=== PATIENT | female | born 1950 | race African-American/Black ===

== ENCOUNTER 2017-10-31 07:36 | Day surgery (SDC) | payer OTHER ==
[2017-10-31] MEDS ORDERED: MIDAZOLAM HCL 2 MG/2 ML INJ ONE (07:37)
[2017-10-31] MEDS ORDERED: PROPOFOL 200 MG/20 ML VIAL IV ONE (07:37)
[2017-10-31] MEDS ORDERED: FENTANYL CITR 100 MCG/2 ML ONE (07:38)
[2017-10-31] MEDS ORDERED: ONDANSETRON 4 MG/2 ML VIAL ONE (07:38)
[2017-10-31] MEDS ORDERED: KETOROLAC 30 MG/ML INJ ONE (07:38)
[2017-10-31] MEDS ORDERED: LIDOCAINE 1% MPF 5 ML VIAL ONE (07:38)
--- OUTSIDE RECORDS SUMMARY | 2017-10-31 07:39 | XMS REPORT ---
:1950 Author Organization eClinicalWorks Care Team Providers Name Role Phone Milagros Abreu Provider Role Unavailable Allergies No Known Allergies Problems Problem Type Condition Code Onset Dates Condition Status Problem Gastro-esophageal reflux disease K21.9 Active without esophagitis Problem Hemorrhoids K64.9 Active Problem Esophagitis K20.9 Active Problem Microalbuminuria R80.9 Active Problem Seasonal allergic rhinitis due to J30.1 Active pollen Problem Obesity E66.9 Active Problem Body mass index (BMI) of 32.0-32.9 Z68.32 Active in adult Problem Other obesity due to excess E66.09 Active calories Problem Essential hypertension I10 Active Problem HTN (hypertension) I10 Active Problem Abnormal mammogram R92.8 Active Problem Vitamin D deficiency E55.9 Active Problem Gastritis K29.70 Active Problem Personal history of colonic polyps Z86.010 Active Problem Diaphragmatic hernia without K44.9 Active obstruction or gangrene Problem Burping R14.2 Active Problem Abdominal bloating R14.0 Active Problem Family history of colon cancer Z80.0 Active Problem Vitamin B 12 deficiency E53.8 Active Problem Family history of type 2 diabetes Z83.3 Active mellitus Problem Overactive bladder N32.81 Active Problem Gastroesophageal reflux disease K21.0 Active with esophagitis Problem Urinary incontinence R32 Active Medications No Known Medications Results No Known Results Summary Purpose eClinicalWorks Submission
--- OUTSIDE RECORDS SUMMARY | 2017-10-31 07:40 | XMS REPORT ---
:1950 Author Organization eClinicalWorks Care Team Providers Name Role Phone Milagros Abreu Provider Role Unavailable Allergies, Adverse Reactions, Alerts Substance Reaction Event Type Aspirin Adult Low Dose Gets Hive with whitew tablet Drug Allergy Problems Problem Type Condition Code Onset Dates Condition Status Assessment Body mass index (BMI) of 32.0-32.9 Z68.32 Active in adult Assessment Other obesity due to excess E66.09 Active calories Assessment Anemia, unspecified type D64.9 Active Problem Overactive bladder N32.81 Active Assessment Seasonal allergic rhinitis due to J30.1 Active pollen Problem Urinary incontinence R32 Active Assessment Essential hypertension I10 Active Problem Gastro-esophageal reflux disease K21.9 Active without esophagitis Problem Hemorrhoids K64.9 Active Problem Esophagitis K20.9 Active Problem Microalbuminuria R80.9 Active Problem Obesity E66.9 Active Problem Seasonal allergic rhinitis due to J30.1 Active pollen Problem Body mass index (BMI) of 32.0-32.9 Z68.32 Active in adult Problem Essential hypertension I10 Active Problem Other obesity due to excess E66.09 Active calories Problem HTN (hypertension) I10 Active Problem Abnormal [...] type 2 diabetes Z83.3 Active mellitus Problem Gastroesophageal reflux disease K21.0 Active with esophagitis Medications Medication Code Code Instructions Start End Status Dosage System Date Date Vitamin D3 [facility] 42596967813 2000 UNIT Active 1 capsule Orally Once a day Pantoprazole [facility] 85585983640 20 MG Orally Active 1 tablet Sodium Once a day Diclofenac [facility] 21339352725 50 MG Active TAKE 1 Sodium TABLET BY MOUTH TWICE A DAY Zyrtec Allergy [facility] 93476524805 10 MG Orally Active 1 tablet Once a day Contrave [facility] 56647430638 8-90 MG Orally Active 2 tablets Twice a day Vitamin B12 [facility] [place] 63201293666 2500 orally Active one under tongue once a day Protonix [facility] 97811579739 20 MG Orally Active 1 tablet Once a day Myrbetriq [facility] 36763703120 50 MG Orally Active 1 tablet Once a day Amlodipine [facility] 33816398646 10-40 MG Orally Active not Besy-Benazepril defined HCl Results No Known Results Summary Purpose eClinicalWorks Submission
[2017-10-31] MEDS ORDERED: Ringers Lactate 1,000 ML IV ONE (07:50)
[2017-10-31] MEDS ORDERED: NA CHLORIDE 0.9% 2,000 ML ONE (08:50)
[2017-10-31 14:57] VITALS: O2SAT 99
[2017-10-31 14:59] VITALS: BP 118/65; TEMP 98
--- NOTE | 2017-10-31 20:21 | OP ---
Date of Procedure: 10/31/2017 Surgeon: Tamara Roman MD Preoperative Diagnosis: Mixed incontinence and overactive bladder. Postoperative Diagnosis: Mixed incontinence and overactive bladder. Procedures Performed: Cystoscopy and urethroscopy. Anesthesia: MAC. Specimens: None. Complications: None. Drains: None. Findings: This tiny sessile polyp was noted in the trigone close to the internal meatus. Rest of th e bladder exam and urethral exam was normal. Description Of Procedure: After informed consent was verified, patient was taken back to OR, placed in a supine fashion on the operating table. After anesthesia was given, she was placed in a dorsal l ithotomy position using Lionel stirrups, prepped x3 with Betadine was done on urethra, periurethral ar eas. Then 17-Kyrgyz sheath, 30-degree lens and normal saline were used for distention medium. Cysto scopy was performed. There were ureteric orifices on both sides, single, normal jets of urine. The area above the trigone, dome, lateral lees were all closely examined. A small polyp was seen on the distal part of the trigone close to the internal meatus; tiny benign-appearing polyp. No evidence o f any diverticula, calculi, or other tumors. The scope was then pulled out through the bladder, was filled to 300 mL for the examination. Then urethroscopy was performed, 0 degree lens. The scope was pulled out as it was being retracted. The internal urethral meatus appeared to be slightly patent. No evidence of diverticula, ulcers, or tumors in the urethra. The bladder was then drained. The pa tient was recovered from anesthesia. Instrument, needle, and sponge counts were done and were correc t at the end of the case. She will follow up with me in the office. DK/LISA Voice ID: [id number] Report ID: [id number]
== END 2017-10-31 12:10 | disposition home or self-care (01) ==
LOC: OR 07:36
PROVIDERS: ATTEND Obstetrics & Gynecology
PROC: 0TJB8ZZ Inspection of Bladder, Via Natural or Artificial Opening Endoscopic (ICD-10-PCS; principal; 2017-10-31 08:30)
DX: N39.46 Mixed incontinence (principal); N32.81 Overactive bladder; I10 Essential (primary) hypertension; K21.9 Gastro-esophageal reflux disease without esophagitis; Z88.6 Allergy status to analgesic agent; Z86.718 Personal history of other venous thrombosis and embolism; Z80.0 Family history of malignant neoplasm of digestive organs; Z80.8 Family history of malignant neoplasm of other organs or systems; Z80.1 Family history of malignant neoplasm of trachea, bronchus and lung
CPT/HCPCS: J2250; J2405; J3010; J7030

== ENCOUNTER 2018-02-19 07:57 | Emergency (ER) | payer OTHER ==
--- OUTSIDE RECORDS SUMMARY | 2018-02-19 08:02 | XMS REPORT ---
:1950 Author Organization eClinicalWorks Care Team Providers Name Role Phone Abreu, Milagros Provider Role Unavailable Allergies No Known Allergies Problems Problem Type Condition Code Onset Dates Condition Status Assessment Other obesity due to excess E66.09 Active calories Assessment Allergic conjunctivitis of both H10.13 Active eyes Assessment Essential hypertension I10 Active Assessment Seasonal allergic rhinitis due to J30.1 Active pollen Problem HTN (hypertension) I10 Active Problem Seasonal allergic rhinitis due to J30.1 Active pollen Problem Gastritis K29.70 Active Problem Body mass index (BMI) of 32.0-32.9 Z68.32 Active in adult Problem Vitamin D deficiency E55.9 Active Problem Microalbuminuria R80.9 Active Problem Obesity E66.9 Active Problem Allergic conjunctivitis of both H10.13 Active eyes Problem Diaphragmatic hernia without K44.9 Active obstruction or gangrene Problem Gastroesophageal reflux disease K21.0 Active with esophagitis Problem Family history of type 2 diabetes Z83.3 Active mellitus Problem Anemia, unspecified type D64.9 Active Problem Other obesity due to excess E66.09 Active calories Problem Burping R14.2 Active Problem Essential hypertension I10 Active Problem Personal history of colonic polyps Z86.010 Active Problem Abdominal bloating R14.0 Active Problem Overactive bladder N32.81 Active Problem Urinary incontinence R32 Active Problem Family history of colon cancer Z80.0 Active Problem Vitamin B 12 deficiency E53.8 Active Problem Hemorrhoids K64.9 Active Problem Abnormal mammogram R92.8 Active Problem Gastro-esophageal reflux disease K21.9 Active without esophagitis Problem Esophagitis K20.9 Active Medications Medication Code Code Instructions Start End Status Dosage System Date Date Azelastine HCl [facility] 34610818598 0.05 % Active 1 drop into Ophthalmic Twice affected a day eye Amlodipine [facility] 69085864841 10-40 MG Orally Active 1 cap Besy-Benazepri once daily l HCl Contrave [facility] 45469205495 8-90 MG Orally Dec 15, Active 2 tablets Twice a day 2018 Zyrtec Allergy [facility] 64757164314 10 MG Orally Jun 30, Active 1 tablet Once a day 2017 Results No Known Results Summary Purpose eClinicalWorks Submission
--- OUTSIDE RECORDS SUMMARY | 2018-02-19 08:02 | XMS REPORT ---
[...] Status Dosage System Date Date Vitamin D3 [facility] 76690014191 2000 UNIT Active 1 capsule Orally Once a day Pantoprazole [facility] 67286834860 20 MG Orally Active 1 tablet Sodium Once a day Diclofenac [facility] 23849599309 50 MG Active TAKE 1 Sodium TABLET BY MOUTH TWICE A DAY Zyrtec Allergy [facility] 42735418766 10 MG Orally Active 1 tablet Once a day Contrave [facility] 48643717819 8-90 MG Orally Active 2 tablets Twice a day Vitamin B12 [facility] 04571487003 2500 orally Active one under tongue once a day Protonix [facility] 08004502712 20 MG Orally Active 1 tablet Once a day Myrbetriq [facility] 81155085777 50 MG Orally Active 1 tablet Once a day Amlodipine [facility] 74386546170 10-40 MG Orally Active not Besy-Benazepril defined HCl Results No Known Results Summary Purpose eClinicalWorks Submission
--- OUTSIDE RECORDS SUMMARY | 2018-02-19 08:02 | XMS REPORT ---
:1950 Author Organization eClinicalWorks Care Team Providers Name Role Phone Abreu, Milagros Provider Role Unavailable Allergies, Adverse Reactions, Alerts Substance Reaction Event Type Aspirin Adult Low Dose Gets Hive with whitew tablet Drug Allergy Problems Problem Type Condition Code Onset Dates Condition Status Assessment Body mass index (BMI) of 32.0-32.9 Z68.32 Active in adult Assessment Other obesity due to excess E66.09 Active calories Assessment Anemia, unspecified type D64.9 Active Assessment Allergic conjunctivitis of both H10.13 Active eyes Assessment Seasonal allergic rhinitis due to J30.1 Active pollen Assessment Essential hypertension I10 Active Problem HTN (hypertension) I10 Active Problem Seasonal [...] Start End Status Dosage System Date Date Contrave [facility] 01246147067 8-90 MG Orally Dec , Active 2 tablets Twice a day 2017 Vitamin D3 [facility] 30380969529 2000 UNIT Active 1 capsule Orally Once a day Pantoprazole [facility] 11245235794 20 MG Orally Active 1 tablet Sodium Once a day Azelastine HCl [facility] 02896687516 0.05 % Active 1 drop into Ophthalmic affected Twice a day eye Vitamin B12 [facility] 18302549173 2500 orally Active one under tongue once a day Myrbetriq [facility] 95353175563 50 MG Orally Active 1 tablet Once a day Diclofenac [facility] 05116816500 50 MG Active TAKE 1 Sodium TABLET BY MOUTH TWICE A DAY Zyrtec Allergy [facility] 56145115315 10 MG Orally Jun 30, Active 1 tablet Once a day 2017 Amlodipine [facility] 65484550012 10-40 MG Orally Active 1 cap Besy-Benazepril once daily HCl Protonix [facility] 47105097181 20 MG Orally Active 1 tablet Once a day Results No Known Results Summary Purpose eClinicalWorks Submission
--- NOTE | 2018-02-19 09:05 | RAD REPORT ---
EXAM DESCRIPTION: RAD - Hand Left 3 View - 02/19/2018 8:47 am CLINICAL HISTORY: PAIN COMPARISON: No comparisons FINDINGS: No fracture or dislocation is seen. Soft tissue swelling is seen along the dorsum of the h and at the level of the metacarpal heads.
--- NOTE | 2018-02-19 09:44 | EDPHYS ---
Physician Documentation [facility] Name: Montse Pappas Age: 67 yrs Sex: Female : 1950 Arrival Date: 02/19/2018 Time: 08:04 Bed 13 Private MD: Milagros Abreu ED Physician Khurram River HPI: 02/19 09:00 This 67 yrs old Black Female presents to ER via Ambulatory with complaints of Hand pm1 Injury. 16:55 The patient or guardian reports pain. The complaints affect the MCP of left middle pm1 finger. Context: The problem was sustained at work, resulted from lifting or pulling, a heavy object. Onset: The symptoms/episode began/occurred yesterday. Modifying factors: The symptoms are alleviated by OTC meds, the symptoms are aggravated by movement. Associated signs and symptoms: Pertinent negatives: cyanosis distally, decreased sensation distally, numbness distally, tingling distally. Severity of symptoms: in the emergency department the symptoms are actually worse. The patient has not experienced similar symptoms in the past. Patient was pulling a cart with her left hand and started experiencing pain to left MCP of middle finger. Historical: - Allergies: 08:06 Aspirin; sv - PMHx: 08:06 Hypertension; sv - PSHx: 08:06 Appendectomy; sv - Immunization history:: Adult Immunizations up to date. - Social history:: Smoking status: Patient/guardian denies using tobacco. - Ebola Screening: : No symptoms or risks identified at this time. ROS: 09:00 Constitutional: Negative for fever, chills, and weight loss, Eyes: Negative for injury, pm1 pain, redness, and discharge, ENT: Negative for injury, pain, and discharge, Neck: Negative for injury, pain, and swelling, Cardiovascular: Negative for chest pain, palpitations, and edema, Respiratory: Negative for shortness of breath, cough, wheezing, and pleuritic chest pain, Abdomen/GI: Negative for abdominal pain, nausea, vomiting, diarrhea, and constipation, Back: Negative for injury and pain. 09:00 Skin: Negative for injury, rash, and discoloration, Neuro: Negative for headache, weakness, numbness, tingling, and seizure. 09:00 MS/extremity: Positive for pain, of the MCP of left middle finger. Exam: 09:00 Constitutional: This is a well developed, well nourished patient who is awake, alert, pm1 and in no acute distress. Head/Face: Normocephalic, atraumatic. Chest/axilla: Normal chest wall appearance and motion. Nontender with no deformity. No lesions are appreciated. Cardiovascular: Regular rate and rhythm with a normal S1 and S2. No gallops, murmurs, or rubs. Normal PMI, no JVD. No pulse deficits. Respiratory: Lungs have equal breath sounds bilaterally, clear to auscultation and percussion. No rales, rhonchi or wheezes noted. No increased work of breathing, no retractions or nasal flaring. Abdomen/GI: Soft, non-tender, with normal bowel sounds. No distension or tympany. No guarding or rebound. No evidence of tenderness throughout. Back: No spinal tenderness. No costovertebral tenderness. Full range of motion. Skin: Warm, dry with normal turgor. Normal color with no rashes, no lesions, and no evidence of cellulitis. 09:00 Musculoskeletal/extremity: Extremities: grossly normal except: noted in the MCP of left middle finger: swelling, tenderness, There is no evidence of decreased ROM, tenderness, along flexor tendon of middle finger. 09:00 Neuro: Orientation: is normal, Motor: moves all fours. Vital Signs: 08:06 Pulse 62; Resp 18; Temp 98.4; Pulse Ox 99% ; Weight 79.83 kg; Height 5 ft. 5 in. sv (165.10 cm); Pain 10/10; 08:32 BP 123 / 74; Pulse 66; Resp 17; Pulse Ox 99% on R/A; tw2 09:56 BP 110 / 98; Pulse 68; Resp 17; Pulse Ox 100% on R/A; tw2 08:06 Body Mass Index 29.29 (79.83 kg, 165.10 cm) sv MDM: 08:12 Patient medically screened. pm1 09:42 Data reviewed: vital signs. Data interpreted: Pulse oximetry: on room air is 99 %. pm1 Interpretation: normal. Counseling: I had a detailed discussion with the patient and/or guardian regarding: the historical points, exam findings, and any diagnostic results supporting the discharge/admit diagnosis, radiology results. 08 08:14 Order name: Hand Left 3 View XRAY; Complete Time: 09:42 pm1 Administered Medications: No medications were administered Disposition: 14:40 Co-signature as Attending Physician, Khurram River MD I agree with the assessment and kdr plan of care. Disposition: 02/19/18 09:44 Discharged to Home. Impression: Sprain of unspecified part of wrist and hand. - Condition is Stable. - Discharge Instructions: Joint Pain. - Medication Reconciliation Form, Thank You Letter, Antibiotic Education, Prescription Opioid Use, Work release form form. - Follow up: Emergency Department; When: As needed; Reason: Worsening of condition. Follow up: Jerry Villa MD; When: 2 - 3 days; Reason: Recheck today's complaints, Continuance of care, Re-evaluation by your physician. - Problem is new. - Symptoms have improved. Signatures: Dispatcher [employer] Bobbi Jimenez, RN RN Khurram Padilla MD MD [facility] Ray Rasmussen, BRIM SETTER BRIM SETTER pm1 Kati Chopra RN RN tw2 Corrections: (The following items were deleted from the chart) 09:58 09:44 02/19/2018 09:44 Discharged to Home. Impression: Sprain of unspecified part of tw2 wrist and hand. Condition is Stable. Forms are Work release form, Medication Reconciliation Form, Thank You Letter, Antibiotic Education, Prescription Opioid Use. Follow up: Emergency Department; When: As needed; Reason: Worsening of condition. Follow up: Jerry Villa; When: 2 - 3 days; Reason: Recheck today's complaints, Continuance of care, Re-evaluation by your physician. Problem is new. Symptoms have improved. pm1
--- NOTE | 2018-02-19 09:44 | ER ---
Nurse's Notes [facility] Name: Montse Pappas Age: 67 yrs Sex: Female : 1950 Arrival Date: 02/19/2018 Time: 08:04 Bed 13 Private MD: Milagros Abreu Diagnosis: Sprain of unspecified part of wrist and hand Presentation: 02/19 08:05 Presenting complaint: Patient states: left hand injury yesterday. c/o left hand pain sv and swelling. Transition of care: patient was not received from another setting of care. Onset of symptoms was February 18, 2018. Care prior to arrival: None. 08:05 Method Of Arrival: Ambulatory sv 08:05 Acuity: DOREEN 4 sv 08:31 Risk Assessment: Do you want to hurt yourself or someone else? Patient reports no tw2 desire to harm self or others. Initial Sepsis Screen: Does the patient meet any 2 criteria? No. Patient's initial sepsis screen is negative. Does the patient have a suspected source of infection? No. Patient's initial sepsis screen is negative. Historical: - Allergies: 08:06 Aspirin; sv - PMHx: 08:06 Hypertension; sv - PSHx: 08:06 Appendectomy; sv - Immunization history:: Adult Immunizations up to date. - Social history:: Smoking status: Patient/guardian denies using tobacco. - Ebola Screening: : No symptoms or risks identified at this time. Screenin:31 Abuse screen: Denies threats or abuse. Nutritional screening: No deficits noted. tw2 Tuberculosis screening: No symptoms or risk factors identified. Fall Risk None identified. Assessment: 08:32 General: Appears in no apparent distress. well groomed, Behavior is calm, cooperative, tw2 appropriate for age. Pain: Complains of pain in left hand. Neuro: Level of Consciousness is awake, alert, obeys commands, Oriented to person, place, time, situation. Cardiovascular: Denies chest pain, shortness of breath, Patient's skin is warm and dry. Respiratory: Airway is patent Respiratory effort is even, unlabored, Respiratory pattern is regular, symmetrical. GI: No signs and/or symptoms were reported involving the gastrointestinal system. : No signs and/or symptoms were reported regarding the genitourinary system. EENT: No signs and/or symptoms were reported regarding the EENT system. Derm: No signs and/or symptoms reported regarding the dermatologic system. Musculoskeletal: Swelling present in left hand. 09:07 Reassessment: Patient appears in no apparent distress at this time. No changes from tw2 previously documented assessment. Patient and/or family updated on plan of care and expected duration. Pain level reassessed. Patient is alert, oriented x 3, equal unlabored respirations, skin warm/dry/pink. 09:56 Reassessment: Patient appears in no apparent distress at this time. No changes from tw2 previously documented assessment. Patient and/or family updated on plan of care and expected duration. Pain level reassessed. Patient is alert, oriented x 3, equal unlabored respirations, skin warm/dry/pink. Vital Signs: 08:06 Pulse 62; Resp 18; Temp 98.4; Pulse Ox 99% ; Weight 79.83 kg; Height 5 ft. 5 in. sv (165.10 cm); Pain 10/10; 08:32 BP 123 / 74; Pulse 66; Resp 17; Pulse Ox 99% on R/A; tw2 09:56 BP 110 / 98; Pulse 68; Resp 17; Pulse Ox 100% on R/A; tw2 08:06 Body Mass Index 29.29 (79.83 kg, 165.10 cm) sv ED Course: 08:04 Patient arrived in ED. mr 08:04 Milagros Abreu MD is Private Physician. mr 08:05 Triage completed. sv 08:06 Arm band placed on right wrist. sv 08:06 Bed in low position. Call light in reach. Pulse ox on. NIBP on. tw2 08:11 aKti Chopra RN is Primary Nurse. tw2 08:11 Ray Rasmussen NP is PHCP. pm1 08:11 Khurram River MD is Attending Physician. pm1 08:44 X-ray completed. Portable x-ray completed in exam room. Patient tolerated procedure la2 well. 08:45 Hand Left 3 View XRAY In Process Unspecified. EDMS 09:43 Jerry Villa MD is Referral Physician. pm1 09:55 Jignesh wrap to left hand with preformed wrist and thumb splint, pt tolerated well, CMS tw2 intact. 09:56 No provider procedures requiring assistance completed. Patient did not have IV access tw2 during this emergency room visit. Administered Medications: No medications were administered Outcome: 09:44 Discharge ordered by . pm1 09:57 Discharged to home ambulatory. tw2 09:57 Condition: stable 09:57 Discharge instructions given to patient, Instructed on discharge instructions, follow up and referral plans. Demonstrated understanding of instructions, follow-up care. 09:58 Patient left the ED. tw2 Signatures: Dispatcher [employer] EDBobbi Ferrara RN RN sv Rivera, Maria mr Marinas, Patrick DIGITAL X RAY SERVICE ENGINEER DIGITAL X RAY SERVICE ENGINEER pm1 Kati Chopra RN RN tw2 Kiarra Mcqueen
[2018-02-19 10:02] VITALS: TEMP 98.4
[2018-02-19 10:04] VITALS: BP 110/98; O2SAT 100
== END 2018-02-19 09:58 | disposition home or self-care (01) ==
LOC: ER 07:57
DX: S63.502A Unspecified sprain of left wrist, initial encounter (principal); X50.0XXA Overexertion from strenuous movement or load, initial encounter; Y93.89 Activity, other specified; Y92.59 Other trade areas as the place of occurrence of the external cause; I10 Essential (primary) hypertension
CPT/HCPCS: 99283

== ENCOUNTER 2020-05-09 01:18 | Inpatient (IN) | payer OTHER ==
--- OUTSIDE RECORDS SUMMARY | 2020-05-09 01:21 | XMS REPORT ---
:1950 Author Organization [employer] Care Team Providers Name Role Phone Abreu, Na Provider Role Unavailable Allergies, Adverse Reactions, Alerts Substance Reaction Event Type [place] (Diagnostic) Info Not Available Drug Allergy Aspirin Adult Low Dose Gets Hive with whitew tablet Drug All ergy Problems Problem Type Condition Code Onset Dates Condition Statu s Problem Gastritis K29.70 Active Problem HTN (hypertension) I10 Active Problem Obesity E66.9 Active Problem Vitamin D deficiency E55.9 Active Problem Microalbuminuria R80.9 Active Problem Essential hypertension I10 Activ e Problem Diaphragmatic hernia without K44.9 Active obstruction or gangrene Problem Family history of type 2 diabetes Z83.3 Active mellitus Problem Gastroesophageal reflux disease K21.0 Active with esophagitis Problem Family history of colon cancer Z80.0 Active Problem Localized swelling, mass and lump, R22.1 Active neck Problem Obesity (BMI 30-39.9) E66.9 Active Problem Vitamin B 12 deficiency E53.8 Acti ve Problem Mixed stress and urge urinary N39.46 Active incontinence Problem 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 knee Problem Varicose veins of both lower I83.813 Active extremities with pain Problem Need for 23-polyvalent pneumococcal Z23 Active polysaccharide vaccine Problem 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 Active Problem Gastro-esophageal reflux disease K21.9 Active without esophagitis Problem Urinary incontinence R32 Active Assessment Essential hypertension I10 Activ e Problem Allergic rhinitis due to pollen J30.1 Active Problem Overactive bladder N32.81 Active Assessment Need for 23-polyvalent pneumococcal Z23 Active polysaccharide vaccine Problem BMI 36.0-36.9,adult Z68.36 Active Assessment Body mass index (BMI) 35.0-35.9, Z68.35 Active adult Problem Abnormal mammogram of right breast R92.8 Active Assessment Morbid (severe) obesity due to E66.01 Active excess calories Problem Body mass index (BMI) 35.0-35.9, Z68.35 Active adult Problem Morbid (severe) obesity due to E66.01 Active excess calories Problem Seasonal allergic rhinitis due to J30.1 Active pollen Problem Abnormal mammogram R92.8 Active Problem Other obesity due to excess E66.09 Active calories Problem Abdominal bloating R14.0 Active Problem Esophagitis K20.9 Active Problem Body mass index (BMI) of 32.0-32.9 Z68.32 Active in adult Problem Hemorrhoids K64.9 Active Assessment Allergic rhinitis due to pollen J30.1 Active Problem Allergic conjunctivitis of both H10.13 Active eyes Assessment 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 Active Problem Anemia, unspecified type D64.9 Act nancy Problem Personal history of colonic polyps Z86.010 Active Problem Burping R14.2 Active Medications Medication Code Code Instructions Start End Status Dosage System Date Date Azelastine HCl [facility] 57114168268 0.05 % Active [facility] 1 DROP INTO AFFECTED EYE TWICE A DAY Amlodipine [facility] 16431490207 10-40 MG Orally Active 1 capsule Besy-Benazepril once daily HCl Magnesium Oxide [facility] 41163462292 400 MG Orally December 19, Feb 17, Activ e 1 tablet Once a day 2019 2020 as needed Zofran [facility] 28734102264 4 MG Orally Aug 08, Active 1 tablet every 12 hours 2020 as needed Vitamin B12 [facility] 64861682919 2500 orally Active one under tongue once a day Medrol [facility] 92460519444 4 MG Orally Feb 16, Feb 21, Active as 2019 2020 directed with food Meloxicam [facility] [address]-24 Active not defined Zyrtec Allergy [facility] 30047032861 10 MG Orally Active 1 tablet Once a day myrbetriq XR [facility] 82817659749 50mg po Qday Active 1 tablet Vitamin D3 [facility] 43425707094 2000 UNIT Active 1 capsu le Orally Once a day Meclizine HCl ND 20892272900 25 MG Orally Aug 08, Active 1 tablet every 6 hours 2020 as needed as needed Adipex-P [facility] 66562157062 37.5 MG Orally Active 1 ta blet Once a day Pantoprazole [facility] 97690483384 20 MG Orally Active 1 tablet Sodium Once a day Amlodipine [facility] 13999497596 10-40 MG Orally Active 1 cap Besy-Benazepril once daily HCl Flonase [facility] 23629021127 50 MCG/ACT Active 2 spray i n Nasally Once a each day nostril Results No Known Results Immunizations Vaccine Administration Date PNEUMAVAX Feb 17, 2020 Summary Purpose [employer] Submission
--- OUTSIDE RECORDS SUMMARY | 2020-05-09 01:21 | XMS REPORT ---
:1950 Author Organization [employer] Care Team Providers Name Role Phone Abreu, Na Provider Role Unavailable Allergies, Adverse Reactions, Alerts Substance Reaction Event Type [place] (Diagnostic) Info Not Available Drug Allergy Aspirin Adult Low Dose Gets Hive with whitew tablet Drug All ergy Problems Problem Type Condition Code Onset Dates Condition Statu s Problem Vitamin D deficiency E55.9 Active Problem Gastritis K29.70 Active Problem Microalbuminuria R80.9 Active Problem Obesity E66.9 Active Problem Essential hypertension I10 Activ e Problem Diaphragmatic hernia without K44.9 Active obstruction or gangrene Problem Family history of type 2 diabetes Z83.3 Active mellitus Problem Gastroesophageal reflux disease K21.0 Active with esophagitis Problem Family history of colon cancer Z80.0 Active Problem Vitamin B 12 deficiency E53.8 Acti ve Problem Obesity (BMI 30-39.9) E66.9 Active Problem Mixed stress and urge urinary N39.46 Active incontinence Problem Overactive bladder N32.81 Active Problem Varicose veins of both lower I83.813 Active extremities with pain Problem Abnormal mammogram of right breast R92.8 Active Problem 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 knee Problem 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 Active Problem Need for 23-polyvalent Z23 Activ e pneumococcal polysaccharide vaccine Problem Esophagitis K20.9 Active Problem Gastro-esophageal reflux disease K21.9 Active without esophagitis Assessment Essential hypertension I10 Activ e Problem BMI 34.0-34.9,adult Z68.34 Active Problem Urinary incontinence R32 Active Assessment Allergic rhinitis due to pollen J30.1 Active Problem Body mass index (BMI) 35.0-35.9, Z68.35 Active adult Assessment Morbid (severe) obesity due to E66.01 Active excess calories Problem BMI 36.0-36.9,adult Z68.36 Active Assessment BMI 34.0-34.9,adult Z68.34 Active Problem Allergic rhinitis due to pollen J30.1 Active Problem Morbid (severe) obesity due to E66.01 Active excess calories Problem Other obesity due to excess E66.09 Active calories Problem Abdominal bloating R14.0 Active Problem HTN (hypertension) I10 Active Problem Personal history of colonic polyps Z86.010 Active Problem Body mass index (BMI) of 32.0-32.9 Z68.32 Active in adult Problem Hemorrhoids K64.9 Active Problem Seasonal allergic rhinitis due to J30.1 Active pollen Problem Abnormal mammogram R92.8 Active Assessment Strain of right shoulder, initial S46.911A Active encounter Problem Anemia, unspecified type D64.9 Act nancy Problem Localized swelling, mass and lump, R22.1 Active neck Problem Burping R14.2 Active Problem Allergic conjunctivitis of both H10.13 Active eyes Medications Medication Code Code Instructions Start End Status Dosage System Date Date Flonase [facility] 85806194123 50 MCG/ACT Active 2 spray i n Nasally Once a each day nostril myrbetriq XR [facility] 69107941831 50mg po Qday Active 1 tablet Zofran [facility] 28149673084 4 MG Orally Aug 08, Active 1 tablet every 12 hours 2020 as needed Meclizine HCl [facility] 56963484690 25 MG Orally Aug 08, Active 1 tablet every 6 hours 2020 as needed as needed Diclofenac Sodium [facility] 20846646529 50 MG Orally Sept Mar Activ e 1 tablet Twice a day , with food prn pain 2019 2019 or milk Azelastine HCl [facility] 63616141463 0.05 % Active [facility] 1 DROP INTO AFFECTED EYE TWICE A DAY Meloxicam [facility] [address]-63 Active not defined Zyrtec Allergy [facility] 80021282573 10 MG Orally Active 1 tablet Once a day Pantoprazole [facility] 06681130392 20 MG Orally Active 1 tablet Sodium Once a day Vitamin B12 [facility] 97363855406 2500 orally Active one under tongue once a day Vitamin D3 [facility] 30914058653 2000 UNIT Active 1 capsu le Orally Once a day Amlodipine [facility] 80776427906 10-40 MG Active 1 capsul e Besy-Benazepril Orally once HCl daily Amlodipine [facility] 47601495750 10-40 MG Active 1 cap Besy-Benazepril Orally once HCl daily Cyclobenzaprine [facility] 33638085942 10 MG Orally Sept Oct Active 1 tablet HCl once a day at 11, 11, as needed bedtime 2019 2019 Adipex-P [facility] 59016164343 37.5 MG Orally Active 1 ta blet Once a day Results No Known Results Summary Purpose [employer] Submission
--- OUTSIDE RECORDS SUMMARY | 2020-05-09 01:21 | XMS REPORT | Continuity of Care Document ---
:1950 Author Organization [facility] t Address [address] [place] [address] Care Team Providers Name Role Phone Unavailable Unavailable Unavailable Problems Condition Condition Condition Status Onset Resolution Last Treating Co mments Source Name Details Category Date Date Treatment Clinician Date Gastro-eso Gastro-eso Problem Active [facility] phageal phageal [facility] - reflux reflux Memoria disease disease l without without Outpati esophagiti esophagiti en t s s Clinics Hemorrhoid Hemorrhoid Problem Active [facility] Esophagiti Esophagiti Problem Active [facility] l [facility] Microalbum Microalbum Problem Active [facility] inuria inuria [facility] Seasonal [facility]al Problem [facility] allergic [facility] - rhinitis rhinitis Memori a due to due to l pollen pollen Outpati ent Clinics Obesity Obesity Problem Active [facility] (BMI (BMI [facility] - 30-39.9) 30-39.9) Memori a l Outpati ent Clinics Body mass Body mass Problem Active [facility] index index [facility] - (BMI) of (BMI) of Memori a 32.0-32.9 32.0-32.9 l in adult in adult Outpat i ent Clinics Other Other Problem Active [facility] obesity obesity [facility] - due to due to Memoria excess excess l calories calories Outpat i ent Clinics HTN HTN Problem Active [facility] (hypertens (hypertens Alee kes - ion) ion) Memoria l Outpati ent Clinics Abnormal Abnormal Problem Active [facility] mammogram mammogram [facility] - [facility] Clin[facility] Vitamin D Vitamin D Problem Active [facility] deficiency deficiency Alee kes - Memoria l Outpati ent Clinics Gastritis Gastritis Problem Active [facility] Personal Personal Problem Active [facility] history of history of Alee kes - colonic colonic Memoria polyps polyps l [facility]ics Diaphragma Diaphragma Problem Active [facility] tic hernia tic hernia Alee kes - without without Memoria obstructio obstructio l n or n or Outpati gangrene gangrene ent Clinics Burping Burping Problem Active [facility] Abdominal Abdominal Problem Active [facility] bloating bloating [facility] - [facility] l [facility] Family Family Problem Active [facility] history of history of [facility] Vitamin B Vitamin B Problem Active [facility] 12 12 [facility] - deficiency deficiency Me moria l [facility] Family Family Problem Active [facility] history of history of Alee kes - type 2 type [address] [facility] diabetes diabetes l mellitus mellitus Outpat i ent Clinics Overactive Overactive Problem Active [facility] bladder bladder [facility] Gastroesop Gastroesop Problem Active [facility] hageal hageal [facility] - reflux reflux Memoria disease disease l with with Outpati esophagiti esophagiti en t s s Clinics Urinary Urinary Problem Active [facility] incontinen incontinen Alee kes - ce ce [facility] Anemia, Anemia, Problem Active [facility] unspecifie unspecifie Alee kes - d type d [facility] Allergic Allergic Problem Active [facility] conjunctiv conjunctiv Alee kes - itis [facility] both eyes both eyes l [facility] Localized Localized Problem Active [facility] swelling, swelling, Luke s - mass and mass and Memori a lump, neck lump, neck l [facility] Mixed Mixed Problem Active [facility] stress and stress and Alee kes - urge urge Memoria urinary urinary l incontinen incontinen Ou tpati ce ce ent Clinics Varicose Varicose Problem Active [facility] veins of veins of [facility] - both lower both lower Me moria extremitie extremitie l s with s with [facility] pain pain ent Clinics Primary Primary Problem Active [facility] osteoarthr osteoarthr Alee kes - itis of itis of Memoria right knee right knee l [facility] BMI BMI Problem Active [facility] 36.0-36.9, 36.0-36.9, Alee kes - adult adult [facility] Body mass Body mass Problem Active [facility] index index [facility] - (BMI) (BMI) Memoria 35.0-35.9, 35.0-35.9, l adult adult [facility] Clinics Morbid Morbid Problem Active [facility] (severe) (severe) Lukes - obesity obesity Memoria due to due to l excess excess Outpati calories calories ent Clinics Need for Need for Problem Active [facility] 23-polyval 23-polyval [facility] - ent ent Memoria pneumococc pneumococc l al al Outpati polysaccha polysaccha en t ride ride Clinics vaccine vaccine Tinnitus Tinnitus Problem Active [facility] of right of right [facility] - ear ear Memoria l [facility] Clin[facility] BMI BMI Diagnosis Active [facility] 34.0-34.9, 34.0-34.9, Alee kes - adult adult [facility] Strain of Strain of Diagnosis Active [facility] right right [facility] - shoulder, shoulder, Maxi jennifer initial initial l encounter encounter Outp at ent Clinics Allergies, Adverse Reactions, Alerts Allergy Allergy Status Severity Reaction(s) Onset Inactive Treating Comm ents Source Name Type Date Date Clinician Aspirin Adverse Active [facility] Adult Reaction with whitew Nabeel es - Low Dose tablet Memoria [facility] Clinics Strawber Adverse Active Info Not [facility] ry Reaction Available [facility] - (Diagnos Memoria tic) [facility] Medications Ordered Filled Start Stop Current Ordering Indication Dosage Frequency Signature Comments Components Source Medication Medication Date Date Medication? Clinician (SIG) Name Name Cyclobenzap Cyclobenzap 2020- Yes Na Abreu [address] [facility] rine HCl rine HCl - 10-11 as needed L ukes - 00:00: 00:00 Memoria 00 :00 [facility] Diclofenac Diclofenac 2020- Yes Na Abreu [address] [facility] Sodium Sodium 03-27- with food [facility] - 00:00: 00:00 or milk Memoria 00 :00 [facility] Adipex-P Adipex-P 2020- No Na Abreu [address] [facility] 7- 08-05 [facility] - 00:00: 00:00 Memoria 00 :00 [facility] Meclizine Meclizine Yes Na Abreu [address] [facility] HCl HCl 1-23 as needed [facility] - 00:00: Memoria 00 [facility] Zofran Zofran Yes Na Abreu [address] 1-23 [facility] - 00:00: Memoria 00 l [facility]ics Flonase Flonase Yes Na Abreu [address] [facility] each [facility] - nostril Memoria l [facility] Vitamin B12 Vitamin B12 Yes Na Abreu one [facility]ics Azelastine Azelastine Yes Na Abreu INSTILL [address] [facility] HCl HCl DROP INTO Lukes - AFFECTED Memoria EYE TWICE l A DAY [facility] Vitamin D3 Vitamin D3 Yes Na Abreu [address] [facility] Pantoprazol Pantoprazol Yes Na Abreu [address] [facility] e Sodium e Sodium [facility] - Memoria l [facility] Amlodipine Amlodipine Yes Na Abreu [address] [facility] [address] Besy-Benaze Besy-Benaze L ukes - pril HCl pril HCl Memoria l [facility] Clinics Meloxicam Meloxicam Yes Na Abreu not [facility] defined [facility] - [facility] l [facility] Zyrtec Zyrtec Yes Na Abreu [address] [facility] Allergy Allergy [facility] - Memoria l [facility]ics myrbetriq myrbetriq Yes Na Abreu [address] [facility] XR XR [facility] - Memoria l [facility] Amlodipine Amlodipine Yes Na Abreu [address] [facility] Besy-Benaze Besy-Benaze L ukes - pril HCl pril HCl Memoria l [facility] Clinics Immunizations Ordered Filled Immunization Date Status Comments [facility] e Immunization Name Name PNEUMAVAX 23 PNEUMAVAX 23 2020-02-[address] Nabeel es - 00:00:00 [facility] Out[facility] TDAP- Boostrix TDAP- Boostrix 2018-09-[address] [facility] - 00:[facility]00 [facility] Procedures This patient has no known procedures. Encounters Start End Encounter Admission Attending Care Care Encounter Source Date/Time Date/Time Type Type Clinicians Facility Department ID 2020-03-27 2020-03-27 Outpatient [facility] [id number] [facility] 08[facility]00:00 08:00:00 [employer] [place] [facility] Medicine Medicine [facility] 2020-02-17 2020-02-17 Outpatient [facility] [id number] [facility] [address] 08:00:00 08:00:00 [place] [employer] [facility] Medicine Outpati ent Clinics 2020-01-20 2020-01-20 [facility] [id number] 08:20:00 08:20:00 [place] [employer] [address] [facility] l Medicine Outpati ent Clinics 2019-12-20 2019-12-20 [facility] [id number] 13:20:00 13:20:00 [place] [employer] [facility] Medicine Outpati ent Clinics 2019-12-16 2019-12-16 [facility] [id number] 22:27:00 22:27:00 [email or web address] [facility] Medicine Outpati ent Clinics 2019-11-25 2019-11-25 [facility] [id number] [address] 10:15:00 10:15:00 t Bone Bone and [facility] - and Joint [facility] ent Clinics 2019-11-04 2019-11-04 [facility] [id number] [address] 10:06:00 10:06:00 t [facility] Bone and [facility] - and Joint [facility] ent Clinics 2019-08-08 2019-08-08 [facility] [id number] [address] 15:40:00 15:40:00 t [employer] [facility] Medicine Outpati ent Clinics 2019-07-19 2019-07-19 [facility] [id number] 10:00:00 10:00:00 [place] [employer] [facility] Medicine Outpati ent Clinics 2019-07-08 2019-07-08 [facility] [id number] [facility] 13:34:00 13:34:00 t [place] [employer] [facility] Medicine Outpati ent Clinics 2019-06-21 2019-06-21 [facility] [id number] 11:00:00 11:00:00 [place] [employer] [facility] Outpati ent Clinics 2019-06-10 2019-06-10 [facility] [id number] [address] 09:30:00 09:30:00 t [facility] and [facility] - and Joint [facility] ent Clinics 2019-06-07 2019-06-07 [facility] [id number] 08:40:00 08:40:00 t [place] [employer] [facility] Outpati ent Clinics 2019-06-07 2019-06-07 [facility] [id number] [address] 08:23:00 08:23:00 [email or web address] [facility] Outpati ent Clinics 2019-05-19 2019-05-19 [facility] [id number] 00:54:00 00:54:00 t [employer] [facility] Outpati ent Clinics 2019-05-13 2019-05-13 [facility] [id number] 09:30:00 09:30:00 t Bone Bone and [facility] - and Joint [facility] ent Clinics 2019-05-07 2019-05-07 [facility] [id number] 15:33:00 15:33:00 t [employer] [facility] 2019-04-18 2019-04-18 [facility] [id number] 08:19:00 08:19:00 t [place] [employer] [facility] Outpati ent Clinics 2019-03-29 2019-03-29 [facility] [id number] [facility] 08:20:00 08:20:00 t [email or web address] [facility] Outpati ent Clinics 2019-03-24 2019-03-24 [facility] [id number] 12:24:00 12:24:00 [email or web address] [facility] Outpati ent Clinics 2019-03-19 2019-03-19 [facility] [id number] 16:28:00 16:28:[address] Luke s - Drive [facility] Medicine l Medicine Outpati ent Clinics 2018-12-25 2018-12-25 [facility] [id number] 13:14:00 13:14:[address] Luke s - [address] [facility] l Medicine Outpati ent Clinics 2018-12-21 2018-12-21 [facility] [id number] [facility] 08:20:00 08:20:[address] Luke s - Drive [facility] Medicine l Medicine Outpati ent Clinics 2018-11-02 2018-11-02 [facility] [id number] [facility] 15:49:00 15:49:[address] Luke s - [facility] l Medicine Outpati ent Clinics 2018-10-22 2018-10-22 [facility] [id number] 15:20:00 15:20:[address] Luke s - Drive [facility] Medicine Outpati ent Clinics 2018-09-21 2018-09-21 [facility] [id number] [facility] 09:00:00 09:00:[address] Luke s - Drive [facility] Medicine Outpati ent Clinics 2018-06-21 2018-06-21 [facility] [id number] [facility] 09:00:00 09:00:[address] Luke s - [facility] l Medicine Outpati ent Clinics 2018-04-11 2018-04-11 [facility] [id number] 16:35:00 16:35:[address] Luke s - Drive [facility] Medicine l Medicine Outpati ent Clinics 2018-04-11 2018-04-11 [facility] [id number] [facility] 08:24:00 08:24:[address] Luke s - [facility] l Medicine Outpati ent Clinics 2018-03-23 2018-03-23 [facility] [id number] 09:15:00 09:15:[address] Luke s - [facility] l Medicine Outpati ent Clinics 2018-01-08 2018-01-08 [facility] [id number] 15:59:00 15:59:00 t [place] [employer] [facility] Outpati ent Clinics 2018-01-01 2018-01-01 [facility] [id number] [facility] 08:45:00 08:45:00 t [employer] [facility] Outpati ent Clinics 2017-10-06 2017-10-06 [facility] [id number] [facility] 09:54:00 09:54:00 t [employer] [facility] Medicine Outpati ent Clinics 2017-10-02 2017-10-02 [facility] [id number] [facility] 08:15:00 08:15:00 t [employer] [facility] Outpati ent Clinics Results This patient has no known results.
[2020-05-09] MEDS ORDERED: MORPHINE 2 MG/ML SYR ONE ×2 (02:02→03:13)
[2020-05-09] MEDS ORDERED: ONDANSETRON 4 MG/2 ML VIAL ONE (02:02)
[2020-05-09] MEDS ORDERED: NA CHLORIDE 0.9% 2,000 ML ONE (02:02)
[2020-05-09 02:21] LABS: Absolute Lymphocytes (CBC) 0.3 K/uL (0.7-4.9); Basophils % 0.3 % (0-1.3); Hematocrit 40.7 % (36.0-45.0); Lymphocytes % 2.3 % (15.3-44.8); MPV 9.7 fL (7.6-11.3); RBC Red Blood Cell Count 4.35 M/uL (3.86-4.86)
[2020-05-09] MEDS ORDERED: FAMOTIDINE 20 MG/2 ML VIAL IV ONE (02:28)
[2020-05-09] MEDS ORDERED: METRONIDAZOLE 500mg IVPB 500 MG/100 ML BAG IV ONE (02:29)
[2020-05-09] MEDS ORDERED: CIPROFLOXACIN 400mg IV 400 MG/200 ML BAG IV ONE (02:29)
[2020-05-09 02:45] LABS: Protime INR 1.13
[2020-05-09 03:02] LABS: Blood Morphology Comment NOT SEEN (NOT SEEN); Platelet Estimate ADEQ
[2020-05-09 03:09] LABS: ALT/SGPT 28 U/L (12-78); AST/SGOT 17 U/L (15-37); Albumin 3.7 g/dL (3.4-5.0); Alkaline Phosphatase 92 U/L (45-117); BUN Blood Urea Nitrogen 12 mg/dL (7-18); Bicarbonate 27 mmol/L (21-32); Bilirubin Direct 0.1 mg/dL (0-0.2); Bilirubin Total 0.3 mg/dL (0.2-1.0); Glucose Level 139 mg/dL (74-106); Lipase 34 U/L (73-393); Potassium 3.8 mmol/L (3.5-5.1); Protein, Total 8.2 g/dL (6.4-8.2); Sodium Level 139 mmol/L (136-145); Troponin (Emerg Dept Use Only) < 0.02 ng/mL (0.0-0.045)
--- NOTE | 2020-05-09 03:38 | EDPHYS ---
Physician Documentation [facility] Name: Montse Pappas Age: 70 yrs Sex: Female : 1950 Arrival Date: 05/09/2020 Time: 01:21 Bed 7 Private MD: ED Physician Mane Putnam HPI: 05/09 02:06 This 70 yrs old Black Female presents to ER via Ambulatory with complaints of Abdominal charleen Pain, Vomiting, Bloody Stools. 02:06 The patient presents to the emergency department with diarrhea, that is intermittent, charleen abdominal pain. Onset: The symptoms/episode began/occurred just prior to arrival, this morning, yesterday. Possible causes: unknown. The symptoms are aggravated by nothing. The symptoms are alleviated by nothing. Associated signs and symptoms: The patient has no apparent associated signs or symptoms. Severity of symptoms: At their worst the symptoms were. The patient has not experienced similar symptoms in the past. Historical: - Allergies: 01:42 Aspirin; mg2 01:42 amlodipine; mg2 - Home Meds: 01:42 aspirin (pink) [Active]; mg2 - PMHx: 01:42 Hypertension; mg2 - PSHx: 01:42 Appendectomy; mg2 - Immunization history:: Flu vaccine is up to date. - Social history:: Smoking status: Patient denies any tobacco usage or history of. Patient/guardian denies using alcohol, street drugs, IV drugs. - Family history:: not pertinent. ROS: 02:06 Constitutional: Negative for fever, chills, and weight loss, Eyes: Negative for injury, charleen pain, redness, and discharge, ENT: Negative for injury, pain, and discharge, Neck: Negative for injury, pain, and swelling, Cardiovascular: Negative for chest pain, palpitations, and edema, Respiratory: Negative for shortness of breath, cough, wheezing, and pleuritic chest pain, Back: Negative for injury and pain, : Negative for injury, bleeding, discharge, and swelling, MS/Extremity: Negative for injury and deformity, Skin: Negative for injury, rash, and discoloration, Neuro: Negative for headache, weakness, numbness, tingling, and seizure, Psych: Negative for depression, anxiety, suicide ideation, homicidal ideation, and hallucinations, Allergy/Immunology: Negative for hives, rash, and allergies, Endocrine: Negative for neck swelling, polydipsia, polyuria, polyphagia, and marked weight changes, Hematologic/Lymphatic: Negative for swollen nodes, abnormal bleeding, and unusual bruising. 02:06 Abdomen/GI: Positive for abdominal pain, abdominal cramps, of the right lower quadrant and left lower quadrant. Exam: 02:06 Constitutional: This is a well developed, well nourished patient who is awake, alert, charleen and in no acute distress. Head/Face: Normocephalic, atraumatic. Eyes: Pupils equal round and reactive to light, extra-ocular motions intact. Lids and lashes normal. Conjunctiva and sclera are non-icteric and not injected. Cornea within normal limits. Periorbital areas with no swelling, redness, or edema. ENT: Nares patent. No nasal discharge, no septal abnormalities noted. Tympanic membranes are normal and external auditory canals are clear. Oropharynx with no redness, swelling, or masses, exudates, or evidence of obstruction, uvula midline. Mucous membranes moist. Neck: Trachea midline, no thyromegaly or masses palpated, and no cervical lymphadenopathy. Supple, full range of motion without nuchal rigidity, or vertebral point tenderness. No Meningismus. Chest/axilla: Normal chest wall appearance and motion. Nontender with no deformity. No lesions are appreciated. Cardiovascular: Regular rate and rhythm with a normal S1 and S2. No gallops, murmurs, or rubs. Normal PMI, no JVD. No pulse deficits. Respiratory: Lungs have equal breath sounds bilaterally, clear to auscultation and percussion. No rales, rhonchi or wheezes noted. No increased work of breathing, no retractions or nasal flaring. Back: No spinal tenderness. No costovertebral tenderness. Full range of motion. Female : Normal external genitalia. Skin: Warm, dry with normal turgor. Normal color with no rashes, no lesions, and no evidence of cellulitis. MS/ Extremity: Pulses equal, no cyanosis. Neurovascular intact. Full, normal range of motion. Neuro: Awake and alert, GCS 15, oriented to person, place, time, and situation. Cranial nerves II-XII grossly intact. Motor strength 5/5 in all extremities. Sensory grossly intact. Cerebellar exam normal. Normal gait. Psych: Awake, alert, with orientation to person, place and time. Behavior, mood, and affect are within normal limits. 02:06 Abdomen/GI: Inspection: distension, obese Bowel sounds: normal, active, Palpation: mild abdominal tenderness, in the right lower quadrant and left lower quadrant, Liver: no appreciated palpable abnormalities, Hernia: not appreciated. 02:10 ECG was reviewed by the Attending Physician. [facility] Vital Signs: 01:39 BP 130 / 84; Pulse 101; Resp 18; Temp 98.1; Pulse Ox 98% on R/A; Weight 86.18 kg; mg2 Height 5 ft. 5 in. (165.10 cm); Pain 10/10; 02:45 BP 144 / 67; Pulse 95; Resp 18; Pulse Ox 99% on R/A; lp1 04:32 BP 144 / 81; Pulse 85; Resp 18; Pulse Ox 100% on R/A; Pain 8/10; lp1 01:39 Body Mass Index 31.62 (86.18 kg, 165.10 cm) mg2 MDM: 01:29 Patient medically screened. [facility] 02:08 Differential diagnosis: Nonspecific abd pain, pancreatitis, diverticulitis, viral charleen gastroenteritis, gastroenteritis. Data reviewed: vital signs, nurses notes, lab test result(s), EKG, radiologic studies, CT scan. Data interpreted: conveyor monitor: rate is 101 beats/min, rhythm is regular, Pulse oximetry: on room air is 98 %. Test interpretation: by ED physician or midlevel provider: ECG, plain radiologic studies. Counseling: I had a detailed discussion with the patient and/or guardian regarding: the historical points, exam findings, and any diagnostic results supporting the discharge/admit diagnosis, lab results, radiology results. 05/09 01:47 Order name: Basic Metabolic Panel; Complete Time: 03:35 mg2 05/09 01:47 Order name: CBC with Diff; Complete Time: 03:35 mg2 05/09 01:47 Order name: Hepatic Function; Complete Time: 03:35 mg2 05/09 01:47 Order name: Lipase; Complete Time: 03:35 mg2 05/09 01:47 Order name: Troponin (emerg Dept Use Only); Complete Time: 03:35 mg2 05/09 02:09 Order name: PT-INR; Complete Time: 02:59 charleen 05/09 02:10 Order name: Type And Screen; Complete Time: 03:35 charleen 05/09 02:26 Order name: Manual Differential; Complete Time: 03:35 EDMT 05/09 03:29 Order name: ABO/RH no charge; Complete Time: 03:35 EDMT 05/09 03:38 Order name: Lactate; Complete Time: 05:47 [facility] 05/09 03:42 Order name: C.difficile GDH Ag EDMT 05/09 03:42 Order name: C.DIFF TOX B QUAL PCR [facility] 05/09 03:48 Order name: Stool Culture [facility] 05/09 03:48 Order name: Fecal Leukocyte Stain [facility] 05/09 01:47 Order name: IV Saline Lock; Complete Time: 02:37 [facility] [place] 05/09 01:47 Order name: Labs collected and sent; Complete Time: 02:13 [facility] [place] 05/09 01:47 Order name: CT Abd/Pelvis - IV Contrast Only [facility] [place] 05/09 02:09 Order name: Chest Single View XRAY [facility] 05/09 03:59 Order name: COVID-19 lp 05/09 04:29 Order name: Blood Culture [facility] 05/09 04:36 Order name: CBC with Automated Diff; Complete Time: 05:47 EDMT 05/09 01:47 Order name: EKG - Nurse/Tech; Complete Time: 02:20 mg2 EC:10 Rate is 93 beats/min. Rhythm is regular. QRS [place] is Normal. [place] interval is normal. QRS charleen interval is normal. QT interval is normal. No Q waves. T waves are Normal. No ST changes noted. Clinical impression: Normal ECG and No evidence of ischemia. Interpreted by me. Reviewed by me. Administered Medications: 02:37 Drug: Zofran (Ondansetron) 4 mg Route: IVP; Site: right wrist; mg2 03:05 Follow up: Response: No adverse reaction lp1 02:37 Drug: morphine 2 mg Route: IVP; Site: right wrist; mg2 02:38 Drug: NS 0.9% 1000 ml Route: IV; Rate: 1000 ml; Site: right wrist; mg2 04:25 Follow up: IV Status: Completed infusion; IV Intake: 1000ml lp1 02:55 Drug: Pepcid 20 mg Route: IVP; Site: right wrist; lp1 03:58 Follow up: Response: No adverse reaction lp1 03:05 Drug: morphine 2 mg Route: IVP; Site: right wrist; lp1 03:05 Follow up: Response: No change in condition lp1 03:05 Drug: Cipro 400 mg Volume: 200 ml; Route: IVPB; Infused Over: 60 mins; Site: right lp1 wrist; 04:25 Follow up: IV Status: Completed infusion; IV Intake: 200ml lp1 03:40 Drug: Rocephin 1 grams Route: IV; Rate: per protocol; Site: right wrist; lp1 04:25 Follow up: IV Status: Completed infusion; IV Intake: 10ml lp1 03:49 Drug: Flagyl 500 mg Volume: 100 ml; Route: IVPB; Rate: 200 ml/hr; Infused Over: 30 lp1 mins; Site: right wrist; 04:32 Follow up: IV Status: Completed infusion; IV Intake: 100ml lp1 04:26 Drug: NS 0.9% 1000 ml Route: IV; Rate: 125 ml/hr; Site: right wrist; lp1 04:26 Follow up: IV Status: Infusion continued upon admission lp1 04:40 Drug: morphine 4 mg {Note: VO per Dr. Putnam.} Route: IVP; Site: right wrist; lp1 04:49 Follow up: Response: No adverse reaction lp1 Disposition: 05/09/20 03:37 Hospitalization ordered by Prince Adelina for Inpatient Admission. Preliminary diagnosis are Abdominal tenderness, Left sided colitis with rectal bleeding - transverse to sigmoid, Elevated white blood cell count, Bandemia. - Bed requested for Telemetry/MedSurg (Inpatient). - Status is Inpatient Admission. lp1 - Condition is Fair. - Problem is new. - Symptoms have improved. Signatures: Dispatcher [employer] EDMT Debbi Winchester RN RN mw Anderson, Corey, MD MD cha Pena, Laura RN RN lp1 Martin Mantilla RN RN mg2 Corrections: (The following items were deleted from the chart) 03:41 03:37 Hospitalization Ordered by Prince Adelina DISLA for Inpatient Admission. Preliminary charleen diagnosis is Abdominal tenderness; Left sided colitis with rectal bleeding - transverse to sigmoid; Elevated white blood cell count. Bed requested for Telemetry/MedSurg (Inpatient). Status is Inpatient Admission. Condition is Fair. Problem is new. Symptoms have improved. charleen 03:43 03:41 05/09/2020 03:37 Hospitalization Ordered by Prince Adelina DISLA for Inpatient mw Admission. Preliminary diagnosis is Abdominal tenderness; Left sided colitis with rectal bleeding - transverse to sigmoid; Elevated white blood cell count; Bandemia. Bed requested for Telemetry/MedSurg (Inpatient). Status is Inpatient Admission. Condition is Fair. Problem is new. Symptoms have improved. charleen 04:50 03:43 05/09/2020 03:37 Hospitalization Ordered by Prince Adelina DISLA for Inpatient lp1 Admission. Preliminary diagnosis is Abdominal tenderness; Left sided colitis with rectal bleeding - transverse to sigmoid; Elevated white blood cell count; Bandemia. Bed requested for Telemetry/MedSurg (Inpatient). Status is Inpatient Admission. Condition is Fair. Problem is new. Symptoms have improved. mw
--- NOTE | 2020-05-09 03:38 | ER ---
Nurse's Notes [facility] Name: Montse Pappas Age: 70 yrs Sex: Female : 1950 Arrival Date: 05/09/2020 Time: 01:21 Bed 7 Private MD: Diagnosis: Abdominal tenderness;Left sided colitis with rectal bleeding-transverse to sigmoid;Elevated white blood cell count;Bandemia Presentation: 05/09 01:39 Chief complaint: Patient states: i had popeyes meal \T\ 1600H yesterday when I started to mg2 have vomiting, lower abdominal pain, loose stool and rectal bleeding. Coronavirus screen: Client denies travel out of the [place] in the last 14 days. At this time, the client does not indicate any symptoms associated with coronavirus-19. Ebola Screen: No symptoms or risks identified at this time. Initial Sepsis Screen: Does the patient meet any 2 criteria? No. Patient's initial sepsis screen is negative. Does the patient have a suspected source of infection? No. Patient's initial sepsis screen is negative. Risk Assessment: Do you want to hurt yourself or someone else? Patient reports no desire to harm self or others. Onset of symptoms was May 08, 2020. 01:39 Method Of Arrival: Ambulatory mg2 01:39 Acuity: DOREEN 3 mg2 Triage Assessment: 01:42 General: Appears in no apparent distress. comfortable, Behavior is calm, cooperative. mg2 Pain: Complains of pain in abdomen. EENT: No signs and/or symptoms were reported regarding the EENT system. Neuro: Level of Consciousness is awake, alert, obeys commands, Oriented to person, place, time, situation. Cardiovascular: Capillary refill < 3 seconds Patient's skin is warm and dry. Respiratory: Airway is patent Respiratory effort is even, unlabored, Respiratory pattern is regular, symmetrical. GI: Reports lower abdominal pain, cramping, diarrhea, rectal bleeding, vomiting. : No signs and/or symptoms were reported regarding the genitourinary system. Derm: Skin is intact, is healthy with good turgor, Skin is pink, warm \T\ dry. normal. Musculoskeletal: Circulation, motion, and sensation intact. Capillary refill < 3 seconds. Historical: - Allergies: 01:42 Aspirin; mg2 01:42 amlodipine; mg2 - Home Meds: 01:42 aspirin (pink) [Active]; mg2 - PMHx: 01:42 Hypertension; mg2 - PSHx: 01:42 Appendectomy; mg2 - Immunization history:: Flu vaccine is up to date. - Social history:: Smoking status: Patient denies any tobacco usage or history of. Patient/guardian denies using alcohol, street drugs, IV drugs. - Family history:: not pertinent. Screenin:43 Abuse screen: Denies threats or abuse. Denies injuries from another. Nutritional mg2 screening: No deficits noted. Tuberculosis screening: No symptoms or risk factors identified. Fall Risk None identified. Assessment: :43 General: see triage note. mg2 01:45 General: Appears uncomfortable, Behavior is appropriate for age. Pain: Complains of lp1 pain in right lower quadrant and left lower quadrant Pain currently is 10 out of 10 on a pain scale. Quality of pain is described as crampy, sharp, Pain began about 1800 last night. Neuro: Level of Consciousness is awake, alert, obeys commands, Oriented to person, place, time, situation. Cardiovascular: Patient's skin is warm and dry. Respiratory: Respiratory effort is even, unlabored. GI: Abdomen is obese, Bowel sounds present X 4 quads. Abdomen is tender to palpation in right lower quadrant and left lower quadrant Reports diarrhea, nausea. : No signs and/or symptoms were reported regarding the genitourinary system. EENT: No signs and/or symptoms were reported regarding the EENT system. Derm: Skin is intact, Skin is dry, Skin is normal. Musculoskeletal: No deficits noted. 02:56 Reassessment: patient in CT now. mg2 02:56 Reassessment: Patient returned from CT, reports continued pain at this time to lower lp1 abdomen. 03:56 Reassessment: Patient reports continued pain to lower abdomen; assisted patient to lp1 bathroom via WC, voided, no BM; Hospitalist at bedside to discuss plan of care with patient. Vital Signs: 01:39 BP 130 / 84; Pulse 101; Resp 18; Temp 98.1; Pulse Ox 98% on R/A; Weight 86.18 kg; mg2 Height 5 ft. 5 in. (165.10 cm); Pain 10/10; 02:45 BP 144 / 67; Pulse 95; Resp 18; Pulse Ox 99% on R/A; lp1 04:32 BP 144 / 81; Pulse 85; Resp 18; Pulse Ox 100% on R/A; Pain 8/10; lp1 01:39 Body Mass Index 31.62 (86.18 kg, 165.10 cm) mg2 ED Course: 01:21 Patient arrived in ED. ag3 01:23 Mane Putnam MD is Attending Physician. charleen 01:30 Diana De Jesus, ANGELLA is Primary Nurse. lp1 01:41 Triage completed. mg2 01:42 Arm band placed on. mg2 01:43 Patient has correct armband on for positive identification. mg2 02:10 Initial lab(s) drawn, by me, sent to lab. Missed attempt(s): 22 gauge in right lp1 antecubital area. 02:10 Missed attempt(s): 20 gauge in left antecubital area. lp1 02:22 Chest Single View XRAY In Process Unspecified. EDMS 02:35 Inserted saline lock: 22 gauge in right wrist, using aseptic technique. Blood collected.mg2 02:56 CT Abd/Pelvis - IV Contrast Only In Process Unspecified. EDMS 03:36 Prince Sahu MD is Hospitalizing Provider. charleen 03:56 No provider procedures requiring assistance completed. Patient admitted, IV remains in lp1 place. Administered Medications: 02:37 Drug: Zofran (Ondansetron) 4 mg Route: IVP; Site: right wrist; mg2 03:05 Follow up: Response: No adverse reaction lp1 02:37 Drug: morphine 2 mg Route: IVP; Site: right wrist; mg2 02:38 Drug: NS 0.9% 1000 ml Route: IV; Rate: 1000 ml; Site: right wrist; mg2 04:25 Follow up: IV Status: Completed infusion; IV Intake: 1000ml lp1 02:55 Drug: Pepcid 20 mg Route: IVP; Site: right wrist; lp1 03:58 Follow up: Response: No adverse reaction lp1 03:05 Drug: morphine 2 mg Route: IVP; Site: right wrist; lp1 03:05 Follow up: Response: No change in condition lp1 03:05 Drug: Cipro 400 mg Volume: 200 ml; Route: IVPB; Infused Over: 60 mins; Site: right lp1 wrist; 04:25 Follow up: IV Status: Completed infusion; IV Intake: 200ml lp1 03:40 Drug: Rocephin 1 grams Route: IV; Rate: per protocol; Site: right wrist; lp1 04:25 Follow up: IV Status: Completed infusion; IV Intake: 10ml lp1 03:49 Drug: Flagyl 500 mg Volume: 100 ml; Route: IVPB; Rate: 200 ml/hr; Infused Over: 30 lp1 mins; Site: right wrist; 04:32 Follow up: IV Status: Completed infusion; IV Intake: 100ml lp1 04:26 Drug: NS 0.9% 1000 ml Route: IV; Rate: 125 ml/hr; Site: right wrist; lp1 04:26 Follow up: IV Status: Infusion continued upon admission lp1 04:40 Drug: morphine 4 mg {Note: VO per Dr. Putnam.} Route: IVP; Site: right wrist; lp1 04:49 Follow up: Response: No adverse reaction lp1 Intake: 04:25 IV: 10ml; Total: 10ml. lp1 04:25 IV: 200ml; Total: 210ml. lp1 04:25 IV: 1000ml; Total: 1210ml. lp1 04:32 IV: 100ml; Total: 1310ml. lp1 Outcome: 03:37 Decision to Hospitalize by Provider. charleen 03:57 Condition: stable lp1 03:57 Instructed on the need for admit. 04:49 Admitted to Med/surg accompanied by nurse, via stretcher, room 205, with chart, Report lp1 called to ANGELLA Farias 04:50 Patient left the ED. lp1 Signatures: Dispatcher [employer] EDNE Mane Putnam MD MD cha Pena, Laura RN RN lp1 Martin Mantilla RN RN mg2 Damari Roger ag3 Corrections: (The following items were deleted from the chart) 02:56 01:31 Pulse 97bpm; Resp 18bpm; Pulse Ox 100% RA; mg2 mg2
[2020-05-09] MEDS ORDERED: CEFTRIAXONE/SWI 1gm 1 GM/10 ML SYR ONE (03:49)
--- NOTE | 2020-05-09 04:19 | P.HP ---
Certification for Inpatient Patient admitted to: Inpatient With expected LOS: >2 Midnights Practitioner: I am a practitioner with admitting privileges, knowledge of patient current condition, hospital course, and medical plan of care. 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 This occurred almost immediately after eating [place] chicken, cajun rice and beans, and some potatoes. Her emesis was non-bloody and non- bilious. Her symptoms were accompanied by diarrheal episodes, which rapidly progressed into bright red blood. She had several episodes of bright red blood per rectum. Associated symptoms include pre-syncope, chills. Patient takes daily ASA. She denies any history of liver disease, denies any recent use of antibiotics, denies any family history GI bleeding. This is her first episode of GI bleeding. She had a colonoscopy by Dr Mancuso which was unremarkable. The rest of her history was non-contributory except bilateral knee pain, which required a joint injection early this year. CT A/P showed left sided colitis from transverse to sigmoid colon. Allergies aspirin Allergy (Verified 10/24/17 13:50) Shortness of breath, Hives Home Medications: Amlodipine Besylate [Norvasc] 10 mg PO DAILY 08/18/14 Benazepril HCl 40 mg PO DAILY 08/18/14 Cholecalciferol (Vitamin D3) [Vitamin D3] 2,000 unit PO DAILY 08/18/14 Multivitamin [Multivitamins] 1 each PO DAILY 08/18/14 Pantoprazole [Protonix Tab*] 40 mg PO DAILY 08/18/14 Naltrexone HCl/Bupropion HCl [Contrave ER 8-90 mg Tablet] 1 each PO DAILY 10/24/17 Oxybutynin Chloride [Oxybutynin Chloride ER] 10 mg PO DAILY 10/24/17 Physical Examination - Physical Exam General: Cooperative, Moderate distress HEENT: Atraumatic, Normocephalic, EOMI Neck: Supple Respiratory: Clear to auscultation bilaterally, Normal air movement Cardiovascular: No edema, Normal pulses, Regular rate/rhythm, Normal S1 S2 Gastrointestinal: Normal bowel sounds, Other (Diffuse abdominal tenderness but more so in the epigastric and LLQ region), Tenderness Musculoskeletal: No clubbing, No swelling, No contractures, No erythema, No tenderness, No warmth Integumentary: No rashes, No breakdown, No significant lesion, No tenderness/swelling, No erythema, No warmth, No cyanosis Neurological: Normal speech, Sensation intact, Normal affect - Studies Laboratory Data (last 24 hrs) 05/09/20 02:30: PT 13.3 H, INR 1.13 05/09/20 02:30: Sodium 139, Potassium 3.8, BUN 12, Creatinine 0.76, Glucose 139 H, Total Bilirubin 0.3, AST 17, ALT 28, Alkaline Phosphatase 92, Lipase 34 L 05/09/20 02:00: WBC 14.3 H, Hgb 13.8, Hct 40.7, Plt Count 280 Assessment and Plan - Problems (Diagnosis) (1) Colitis Current Visit: Yes Status: Acute (2) Hypertension Current Visit: Yes Status: Acute - Advance Directives Does patient have a Living Will: No Does patient have a Durable POA for Healthcare: No Physician Review Additional Text: Assessment 70 year old female with HTN admitted with bright red blood per rectum, N/V. Workup showing a leukocytosis with bandemia. Work up so far yielded colitis, which is most likely infectious in etiology. There is a concern for early sepsis. Patient has no risk factors for inflammatory bowel disease. Possible sepsis Lower GI bleeding Left sided colitis Daily use of ASA HTN PLAN: Admit inpatient with telemetry Keep NPO Hold aspirin Follow-up blood cultures and C diff assays Start patient on PPI injection and zofran PRN I will also start patient on LR infusion Patient received ceftriaxone by the ER along with ciprofloxacin and Flagyl I will continue levofloxacin and Flagyl Monitor H&H Q 6 hr, and consult surgery if necessary There is no GI on-call.
[2020-05-09] MEDS ORDERED: ONDANSETRON 4 MG/2 ML VIAL IV PRN (04:35)
[2020-05-09] MEDS ORDERED: MORPHINE 4 MG/ML SYR ONE (04:52)
[2020-05-09] MEDS ORDERED: Levofloxacin 750mg IV 750 MG/150 ML BAG IV ONE (05:00)
[2020-05-09] MEDS ORDERED: PANTOPRAZOLE 40 MG INJ IVP ONE (05:00)
[2020-05-09] MEDS: METRONIDAZOLE 500mg IVPB 500 MG/100 ML BAG IV SCH ×3 (05:00→20:48)
[2020-05-09 05:31] LABS: Absolute Lymphocytes (CBC) 0.5 K/uL (0.7-4.9); Basophils % 0.3 % (0-1.3); Hematocrit 39.6 % (36.0-45.0); Lymphocytes % 4.2 % (15.3-44.8); MPV 9.4 fL (7.6-11.3); RBC Red Blood Cell Count 4.18 M/uL (3.86-4.86)
[2020-05-09] MEDS: Ringers Lactate 1,000 ML IV SCH ×3 (06:15→21:00)
[2020-05-09 06:48] VITALS: BMI 35.6
[2020-05-09] MEDS ORDERED: MORPHINE 2 MG/ML SYR IV PRN (07:43)
[2020-05-09] MEDS: MORPHINE 4 MG/ML SYR IV PRN ×2 (11:36→19:45)
--- NOTE | 2020-05-09 11:49 | RAD REPORT ---
EXAM DESCRIPTION: RAD - Chest Single View - 05/09/2020 2:24 am CLINICAL HISTORY: ABDOMINAL DISTENTION Chest pain. COMPARISON: No comparisons FINDINGS: Portable technique limits examination quality. The lungs are grossly clear. The heart is normal in size. No displaced fractures. IMPRESSION: No acute intrathoracic process suspected.
--- NOTE | 2020-05-09 17:58 | P.PN ---
Date of Service: 05/09/20 Patient states bleeding has stopped. She has beem complaining of abdominal pain which is now controlled with morphine. Patient reports another family member experiencing similar abdominal pain but no diarrhea. Noted lactic acid was elevated. It appears this is more likely a case of enterocolitis from food poisoning done ischemic colitis. Continue IV hydration. Continue IV antibiotics. Trial of clear liquid diet. Monitor CBC and blood chemistry. Monitor for active bleeding.
[2020-05-09] MEDS: PANTOPRAZOLE 40 MG INJ IVP SCH (20:47)
[2020-05-09] MEDS: Levofloxacin 750mg IV 750 MG/150 ML BAG IV SCH (20:48)
[2020-05-09] MEDS: SODIUM CHLORIDE 0.9% 10ML INJ IV PRN (20:49)
[2020-05-10] MEDS: Ringers Lactate 1,000 ML IV SCH ×3 (02:43→22:50)
[2020-05-10] MEDS: METRONIDAZOLE 500mg IVPB 500 MG/100 ML BAG IV SCH ×3 (04:36→20:39)
[2020-05-10 05:59] LABS: BUN Blood Urea Nitrogen 5 mg/dL (7-18); Bicarbonate 29 mmol/L (21-32); Glucose Level 94 mg/dL (74-106); Potassium 3.6 mmol/L (3.5-5.1); Sodium Level 141 mmol/L (136-145)
[2020-05-10 06:24] LABS: Basophils % 0.6 % (0-1.3); Lymphocytes % 8.9 % (15.3-44.8); MPV 8.8 fL (7.6-11.3); RBC Red Blood Cell Count 3.54 M/uL (3.86-4.86)
[2020-05-10] MEDS: PANTOPRAZOLE 40 MG INJ IVP SCH ×2 (08:11→20:38)
--- NOTE | 2020-05-10 11:22 | P.PN ---
Subjective Date of Service: 05/10/20 Chief Complaint: lower GI bleeding Patient reports persistent abdominal pain. Stated she had a bloody bowel movement last night. She stated she never had diarrhea, just bloody stool. Physical Examination - Vital Signs Temperature: 98.0 F Blood Pressure: 107/55 Pulse: 100 Respirations: 16 Pulse Ox (%): 99 - Physical Exam General: Alert, In no apparent distress HEENT: Mucous membr. moist/pink Neck: Supple, JVD not distended Respiratory: Clear to auscultation bilaterally, Normal air movement Cardiovascular: No edema, Regular rate/rhythm, Normal S1 S2 Gastrointestinal: Normal bowel sounds, No rebound, No guarding, Tenderness (Mild diffuse tenderness) Musculoskeletal: No swelling, No erythema Integumentary: No rashes, No tenderness/swelling Neurological: Other (Nonfocal) Assessment And Plan - Current Problems (Diagnosis) (1) GI bleed Current Visit: Yes Status: Acute (2) Colitis Current Visit: Yes Status: Acute (3) Hypertension Current Visit: Yes Status: Acute - Plan CT scan suggest colonic thickening in the inferior mesenteric artery distribution. Lactic acid was elevated on presentation. High suspicion for ischemic bowel versus infectious colitis. Patient reports symptoms occurred after eating chicken. Another family member who ate the same food also experienced abdominal pain but no bloody stool. Will obtain CTA abdomen and pelvis. Continue supportive measures with IV hydration. Continue IV antibiotics. Keep NPO today given persistent abdominal pain and rebleed. GI consult in a.m. Physician Review Additional Text: Assessment 70 year old female with HTN admitted with bright red blood per rectum, N/V. Workup showing a leukocytosis with bandemia. Work up so far yielded colitis, which is most likely infectious in etiology. There is a concern for early sepsis. Patient has no risk factors for inflammatory bowel disease. Possible sepsis Lower GI bleeding Left sided colitis Daily use of ASA HTN PLAN: Admit inpatient with telemetry Keep NPO Hold aspirin Follow-up blood cultures and C diff assays Start patient on PPI injection and zofran PRN I will also start patient on LR infusion Patient received ceftriaxone by the ER along with ciprofloxacin and Flagyl I will continue levofloxacin and Flagyl Monitor H&H Q 6 hr, and consult surgery if necessary There is no GI on-call.
--- NOTE | 2020-05-10 19:22 | P.CNS ---
Date of Consult: 05/10/20 PC: I was asked to see this 70-year-old female in regards to GI bleeding. HPC: Patient apparently passed some blood per rectum, this is a was a large amount. Was evaluated emergency room for admission. PMH: Has had previous colonoscopies, is to 1 soon SOC: Allergic to aspirin SYS REVIEW: Patient is status is she is a relatively good health. No cough, wheeze, shortness of breath. No chest pain or palpitations. Denies any urinary complaints. Abdominal tenderness O/E awake alert vital signs are stable HEENT: Within normal limits Chest: Chest movement equal bilaterally ABD: Soft nontender LOCO: Intact DATA: H&H appears stated IMPRESSION: Had an apparent lower GI bleed PLAN: Patient appears to be stable at the moment. She will obviously these a colonoscopy sometime in the future. Will follow with you, but does not require surgery
[2020-05-10] MEDS: SODIUM CHLORIDE 0.9% 10ML INJ IV PRN (20:39)
[2020-05-10] MEDS: Levofloxacin 750mg IV 750 MG/150 ML BAG IV SCH (20:39)
[2020-05-10 22:32] LABS: Hematocrit 30.8 % (36.0-45.0)
[2020-05-11 04:28] VITALS: O2SAT 96
[2020-05-11] MEDS: METRONIDAZOLE 500mg IVPB 500 MG/100 ML BAG IV SCH (04:47)
[2020-05-11 06:21] LABS: Absolute Lymphocytes (CBC) 1.5 K/uL (0.7-4.9); Basophils % 0.7 % (0-1.3); Hematocrit 33.9 % (36.0-45.0); Lymphocytes % 15.8 % (15.3-44.8); MPV 9.1 fL (7.6-11.3)
[2020-05-11 06:47] LABS: BUN Blood Urea Nitrogen 7 mg/dL (7-18); Bicarbonate 29 mmol/L (21-32); Glucose Level 89 mg/dL (74-106); Potassium 3.6 mmol/L (3.5-5.1); Sodium Level 143 mmol/L (136-145)
[2020-05-11] MEDS: Ringers Lactate 1,000 ML IV SCH (06:47)
[2020-05-11] MEDS: PANTOPRAZOLE 40 MG INJ IVP SCH (08:51)
--- NOTE | 2020-05-11 09:55 | P.PN ---
Subjective Date of Service: 05/11/20 Chief Complaint: lower GI bleeding Patient denies any pain. She also denies any bloody bowel movements since yesterday. She denies any nausea and desires to eat. Physical Examination - Vital Signs Temperature: 98.1 F Blood Pressure: 115/55 Pulse: 100 Respirations: 18 Pulse Ox (%): 96 - Physical Exam General: Alert, In no apparent distress HEENT: Mucous membr. moist/pink, Sclerae nonicteric Neck: Supple, JVD not distended Respiratory: Clear to auscultation bilaterally, Normal air movement Cardiovascular: No edema, Regular rate/rhythm, Normal S1 S2 Capillary refill: <2 Seconds Gastrointestinal: Normal bowel sounds, Soft and benign, No tenderness Musculoskeletal: No swelling, No erythema Integumentary: No rashes Assessment And Plan - Current Problems (Diagnosis) (1) GI bleed Current Visit: Yes Status: Acute (2) Colitis Current Visit: Yes Status: Acute (3) Hypertension Current Visit: Yes Status: Acute - Plan Patient has improved clinically. Advanced diet. GI consulted to evaluate. CT abdomen and pelvis result reviewed with radiologist who reported no evidence of significant mesenteric artery stenosis. Continue supportive measures with IV hydration. Continue IV antibiotics. Continue protonix General surgery input appreciated.
--- NOTE | 2020-05-11 12:56 | RAD REPORT ---
EXAM DESCRIPTION: CT Abdomen and Pelvis With Intravenous Contrast CLINICAL HISTORY: The patient is 70 years old and is Female; ABD PAIN TECHNIQUE: Axial computed tomography images of the abdomen and pelvis with intravenous contrast. S agittal and coronal reformatted images were created and reviewed. This CT exam was performed using one or more of the following dose reduction techniques: automated exposure control, adjustment of t he mA and/or kV according to patient size, and/or use of iterative reconstruction technique. COMPARISON: No relevant prior studies available. FINDINGS: LUNG BASES: Unremarkable. No mass. No consolidation. ABDOMEN: LIVER: Unremarkable. No mass. GALLBLADDER AND BILE DUCTS: No calcified stones. No ductal dilation. PANCREAS: Pancreas is mildly atrophic. SPLEEN: Unremarkable. ADRENALS: Unremarkable. No mass. 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 The kidneys enhance symmetrically. The re is no hydronephrosis or hydroureter of either kidney. The right kidney is duplex. STOMACH AND BOWEL: The stomach is minimally distended with food contents. The small bowel is nor mal in caliber. Stool is present throughout colon. Extensive mucosal thickening involving the distal transverse colon to the level of the sigmoid colon is noted. There is no bowel obstruction. PELVIS: APPENDIX: The appendix is surgically absent. BLADDER: The bladder is not well distended. REPRODUCTIVE: A 2.8 cm fundal uterine fibroid is present. ABDOMEN and PELVIS: INTRAPERITONEAL SPACE: Unremarkable. No free air. No significant fluid collection. BONES/JOINTS: Multilevel degenerative change of the spine is present. SOFT TISSUES: The soft tissues are normal. VASCULATURE: Unremarkable. No abdominal aortic aneurysm. LYMPH NODES: Unremarkable. No enlarged lymph nodes. IMPRESSION: Findings suggest extensive colitis involving the distal transverse colon to the level of the sigmoid colon. Electronically signed by: Kathrin Lowery MD 05/09/2020 3:17 AM CDT Due to temporary technical issues with the PACS/Fluency reporting system, reports are being signed by the in house radiologist without review as a courtesy to ensure prompt reporting. The interpreting r adiologist is fully responsible for the content of the report.
--- NOTE | 2020-05-11 13:12 | P.DS ---
Admission Date: 05/09/20 Discharge Date: 05/11/20 Disposition: ROUTINE DISCHARGE Reason for Admission: lower GI bleeding Consultations: Gastroenterology - Problems (1) GI bleed Current Visit: Yes Status: Acute (2) Colitis Current Visit: Yes Status: Acute (3) Hypertension Current Visit: Yes Status: Acute Brief History of Present Illness: 70-year-old woman presented to the emergency acute rectal bleed. Patient stated she developed abdominal pain and nonbloody emesis several hours after ET [employer] chicken and cajun rice. She then started having bloody bowel movement. CT abdomen done in the ED demonstrated colonic thickening of the transverse to the sigmoid colon suggestive of colitis. Her hemoglobin on arrival was 13. Patient was admitted for further management. Hospital Course: Patient admitted to the medical floor treated with supportive measures with IV fluids, opioids for pain, IV protonix and started on IV Levaquin and flagyl. She experienced a couple more episodes of bloody bowel movement. Her abdominal pain resolved yesterday. She has not had any bloody bowel movements since yesterday. She tolerated solid diet without abdominal pain. Patient was seen and evaluated by Worker'S Compensation Claims Examiner-Dr. Shrestha recommended outpatient colonoscopy after infectious colitis has been adequately treated. Patient has no symptoms today in clinic and stable for discharge. She is discharged to continue oral Cipro and Flagyl. Vital Signs/Physical Exam: Temp Pulse Resp BP Pulse Ox 98.1 F 100 H 18 115/55 L 96 05/11/20 09:55 05/11/20 09:55 05/11/20 09:55 05/11/20 09:55 05/11/20 09:55 General: Alert, In no apparent distress HEENT: Mucous membr. moist/pink Respiratory: Clear to auscultation bilaterally, Normal air movement Cardiovascular: No edema, Regular rate/rhythm, Normal S1 S2 Gastrointestinal: Normal bowel sounds, Soft and benign, No tenderness Integumentary: No rashes Neurological: Other (Nonfocal.) Laboratory Data at Discharge: WBC 9.3 K/uL (4.3-10.9) 05/11/20 06:01 Hgb Cancelled 05/11/20 22:00 Hct Cancelled 05/11/20 22:00 Plt Count 229 K/uL (152-406) 05/11/20 06:01 PT 13.3 SECONDS (9.5-12.5) H 10/24/20 02:30 INR 1.13 05/09/20 02:30 Sodium 143 mmol/L (136-145) 05/11/20 06:01 Potassium 3.6 mmol/L (3.5-5.1) 05/11/20 06:01 BUN 7 mg/dL (7-18) 05/11/20 06:01 Creatinine 0.57 mg/dL (0.55-1.3) 05/11/20 06:01 Glucose 89 mg/dL (74-106) 05/11/20 06:01 Total Bilirubin 0.3 mg/dL (0.2-1.0) 05/09/20 02:30 AST 17 U/L (15-37) 05/09/20 02:30 ALT 28 U/L (12-78) 05/09/20 02:30 Alkaline Phosphatase 92 U/L (45-117) 05/09/20 02:30 Lipase 34 U/L (73-393) L 05/09/20 02:30 Home Medications: Amlodipine Besylate/Benazepril [Amlodipine-Benazepril 10-40 mg] 1 cap PO DAILY 05/09/20 Ciprofloxacin HCl [Cipro 500 MG Tablet] 500 mg PO BID #10 tab 05/11/20 metroNIDAZOLE [Flagyl] 500 mg PO Q8H #15 tablet 05/11/20 New Medications: Ciprofloxacin HCl [Cipro 500 MG Tablet] 500 mg PO BID #10 tab metroNIDAZOLE [Flagyl] 500 mg PO Q8H #15 tablet Diet: AHA (soft diet and then advance as tolerated.) Activity: Ad jeromy Followup: Unknown,U [Primary Care Provider] - Enrique Shrestha MD [ACTIVE - CAN ADMIT] - 1-2 Weeks Time spent managing pt's care (in minutes): 38
--- NOTE | 2020-05-11 13:55 | P.PN ---
Date of Service: 05/11/20 S: Patient feels well today, no complaints O: Vital signs are stable A: Does not require surgical intervention at this time P: Patient was seen by GI. They are going to schedule outpatient colonoscopy. The patient is comfortable with this. Thank you
[2020-05-11 14:16] VITALS: BP 123/65; TEMP 97.4
== END 2020-05-11 14:15 | disposition home or self-care (01) | DRG 392 ==
LOC: ER 01:18 → 2ND 04:37
PROVIDERS: ADMIT Internal Medicine; ATTEND Internal Medicine
DX: A09 Infectious gastroenteritis and colitis, unspecified (principal); K92.2 Gastrointestinal hemorrhage, unspecified; I10 Essential (primary) hypertension; D72.825 Bandemia; A05.9 Bacterial foodborne intoxication, unspecified; Z90.49 Acquired absence of other specified parts of digestive tract; Z79.899 Other long term (current) drug therapy; Z88.8 Allergy status to other drugs, medicaments and biological substances; Z79.82 Long term (current) use of aspirin; Z20.828 Contact with and (suspected) exposure to other viral communicable diseases
CPT/HCPCS: 36415; 71045; 74177; 80048; 80076; 82565; 83605; 83690; 84484; 85014; 85018; 85025; 85610; 86850; 86900; 86901; 87040; 93005; 96365; 96367; 96375; 99285; C9113; J0696; J0744; J2270; J2405; J7030; J7120; Q9967; U0002

== ENCOUNTER 2022-01-01 12:30 | Emergency (ER) | payer OTHER ==
--- OUTSIDE RECORDS SUMMARY | 2022-01-01 12:34 | XMS REPORT | Continuity of Care Document ---
:1950 Author Organization [facility] t Address [address] [place] [address] Care Team Providers Name Role Phone Kt Abreu Attending Clinician Unavailable Problems This patient has no known problems. Allergies, Adverse Reactions, Alerts Allergy Allergy Status Severity Reaction(s) Onset Inactive Treating Comm ents Source Name Type Date Date Clinician Aspirin Adverse Active Gets Hive Commo n Adult Reaction with whitew Spi rit Low Dose tablet - [facility] Strawber Adverse Active Info Not Commo n ry Reaction Available Spiri t (Diagnos - [facility]) [facility] Medications Ordered Filled Start Stop Current Ordering Indication Dosage Frequency Signature Comments Components Source Medication Medication Date Date Medication? Clinician (SIG) Name Name Cyclobenzap Cyclobenzap 2020-0 2020- No Na Abreu 1 tablet Common rine HCl rine HCl 03-27 10-11 as needed S pirit 00:00: 00:00 - [facility] 00 :00 [facility] Diclofenac Diclofenac 2020-0 2020- No Na Abreu 1 tablet Common Sodium Sodium 03-27- with food Spiri t 00:00: 00:00 or milk - [facility] 00 :00 [facility] Adipex-P Adipex-P 2020-0 2020- No Na Abreu 1 tablet Common 01-19 08-05 Spirit 00:00: 00:00 - [facility] 00 :00 [facility] Meclizine Meclizine 2020-0 Yes Na Abreu 1 tablet Common HCl HCl -23 as needed Spirit 00:00: - [facility] 00 [facility] Zofran Zofran 2020-0 Yes Na Abreu 1 tablet Co mmon 1-23 Spirit 00:00: - [facility] 00 [facility] Flonase Flonase Yes Na Abreu 2 spray in Common each [facility] nostril [facility] Vitamin B12 Vitamin B12 Yes Na Abreu one Common [facility] Azelastine Azelastine Yes Na Abreu INSTILL 1 Common HCl HCl DROP INTO [facility] EYE TWICE [facility] Vitamin D3 Vitamin D3 Yes Na Abreu 1 capsule Common [facility] Pantoprazol Pantoprazol Yes Na Abreu 1 tablet Common e Sodium e Sodium [facility] Amlodipine Amlodipine Yes Na Abreu 1 capsule Common Besy-Benaze Besy-Benaze S pirit pril HCl pril HCl [facility] Meloxicam Meloxicam Yes Na Abreu not Co mmon defined [facility] Zyrtec Zyrtec Yes Na Abreu 1 tablet Comm on Allergy Allergy [facility] myrbetriq myrbetriq Yes Na Abreu 1 tablet Common XR XR [facility] Amlodipine Amlodipine Yes Na Abreu 1 cap Common Besy-Benaze Besy-Benaze S pirit pril HCl pril HCl [facility] Immunizations Ordered Immunization Filled Immunization Date Status Commen ts Source Name Name PNEUMAVAX 23 PNEUMAVAX 23 2020-02-17 Completed Common Spi rit 00:00:00 [facility] TDAP- Boostrix TDAP- Boostrix 2018-09-21 Completed Common Spirit 00:00:00 [facility] Procedures This patient has no known procedures. Encounters Start End Encounter Admission Attending Care Care Encounter Source Date/Time Date/Time Type Type Clinicians Facility Department ID 2021-12-20 Outpatient Milagros Abreu [facility] [id number] Common 07:28:00 [facility] 2021-12-14 Outpatient Milagros Abreu [facility] [id number] Common 08:12:00 [facility] 2021-12-02 Outpatient Abreu, Na [facility] [id number] Common 09:22:03 [facility] 2021-08-27 Outpatient Abreu, Na [facility] [id number] Common 08:40:00 [facility] 2021-08-11 Outpatient Abreu, Na [facility]MLC [facility] [id number] Common 14:10:31 [id number] [facility] 2021-08-11 Outpatient Abreu, Na [facility]C [facility] [id number] Common 13:22:16 [id number] [facility] 2021-08-11 Outpatient Abreu, Na [facility]LMLC [facility] [id number] Common 12:47:08 [id number] [facility] 2021-08-11 Outpatient Abreu, Na [facility]LMLC [facility] [id number] Common 12:44:17 [id number] [facility] 2021-08-11 Outpatient Abreu, Na [facility]LMLC ST[facility] [id number] Common 12:21:20 [id number] [facility] 2021-08-11 Outpatient Abreu, Na [facility]LMLC [facility] [id number] Common 12:20:40 [id number] [facility] 2021-08-11 Outpatient Abreu, Na [facility]LMLC ST[facility] [id number] Common 12:04:04 [id number] [facility] 2021-08-11 Outpatient Abreu, Na [facility]C [facility] [id number] Common 11:44:13 [id number] [facility] 2021-08-11 Outpatient Abreu, Na STLMLC ST[facility] [id number] Common 11:33:47 [id number] [facility] 2021-08-11 Outpatient Abreu, Na [facility]C ST[facility] [id number] Common 11:29:32 [id number] [facility] 2021-08-11 Outpatient Abreu, Na [facility]MLC ST[facility] [id number] Common 11:29:14 [id number] [facility] 2021-08-11 Outpatient Abreu, Milagros [facility] [id number] Common 11:07:28 [id number] [facility] 2021-08-11 Outpatient Brady, Milagros [facility] [id number] Common 10:57:49 [id number] [facility] 2021-12-14 2021-12-14 ambulatory [facility] [id number] Common 00:00:00 00:00:00 [facility] 2021-12-06 2021-12-06 ambulatory [facility]C [facility] [id number] Common 00:00:00 00:00:00 [facility] 2021-08-27 2021-08-27 ambulatory [facility]LMLC ST[facility] [id number] Common 00:00:00 00:00:00 [facility] 2021-07-30 2021-07-30 ambulatory [facility]MLC ST[facility] [id number] Common 00:00:00 00:00:00 [facility] 2021-07-29 2021-07-29 ambulatory [facility]MLC ST[facility] [id number] Common 00:00:00 00:00:00 [facility] 2021-07-13 2021-07-13 ambulatory [facility]C ST[facility] [id number] Common 00:00:00 00:00:00 [facility] 2021-01-15 2021-01-15 Outpatient [facility] [id number] Common 00:00:00 00:00:00 [facility] 2020-10-24 2020-10-24 Outpatient [facility] [id number] Common 00:00:00 00:00:00 [facility] 2020-10-23 2020-10-23 Outpatient [facility] [id number] Common 00:00:00 00:00:00 [facility] 2020-10-16 2020-10-16 Outpatient [facility]C [facility] [id number] Common 00:00:00 00:00:00 [facility] 2020-08-27 2020-08-27 Outpatient [facility] [id number] Common 00:00:00 00:00:00 [facility] 2020-08-15 2020-08-15 Outpatient [facility]C [facility] [id number] Common 00:00:00 00:00:00 [facility] 2020-08-11 2020-08-11 Outpatient [facility] ST[facility] [id number] Common 00:00:00 00:00:00 [facility] 2020-07-31 2020-07-31 Outpatient [facility] [id number] Common 00:00:00 00:00:00 [facility] 2020-05-29 2020-05-29 Outpatient [facility] [id number] Common 00:00:00 00:00:00 [facility] 2020-03-27 2020-03-27 [id number] Common 08:00:00 08:00:00 [facility] [employer] [address] [facility] 2020-02-17 2020-02-17 [facility] [id number] Common 08:00:00 08:00:00 [facility] [employer] [address] [facility] 2020-01-20 2020-01-20 [facility] [id number] Common 08:20:00 08:20:00 [facility] [employer] [address] [facility] 2019-12-20 2019-12-20 [facility] [id number] Common 13:20:00 13:20:00 [facility] [employer] [address] [facility] 2019-12-16 2019-12-16 [facility] [id number] Common 22:27:00 22:27:00 [facility] [employer] [address] [facility] 2019-11-25 2019-11-25 [facility] [id number] Common 10:15:00 10:15:00 [facility] 2019-11-04 2019-11-04 [facility] [id number] Common 10:06:00 10:06:00 [facility] 2019-08-08 2019-08-08 [facility] [id number] Common 15:40:00 15:40:00 [address] [employer] [address] [facility] 2019-07-19 2019-07-19 [facility] [id number] Common 10:00:00 10:00:00 [facility] [employer] [address] [facility] 2019-07-08 2019-07-08 [facility] [id number] Common 13:34:00 13:34:00 [facility] [employer] [address] [facility] 2019-06-21 2019-06-21 [facility] [id number] Common 11:00:00 11:00:00 [facility] [employer] [address] [facility] 2019-06-10 2019-06-10 [facility] [id number] Common 09:30:00 09:30:00 [facility] 2019-06-07 2019-06-07 [facility] [id number] Common 08:40:00 08:40:00 [facility] [employer] [address] [facility] 2019-06-07 2019-06-07 [facility] [id number] Common 08:23:00 08:23:00 [facility] [employer] [address] [facility] 2019-05-19 2019-05-19 [facility] [id number] Common 00:54:00 00:54:00 [facility] [employer] [address] [facility] 2019-05-13 2019-05-13 [facility] [id number] Common 09:30:00 09:30:00 t [facility] 2019-05-07 2019-05-07 [facility] [id number] Common 15:33:00 15:33:00 [facility] [employer] [address] [facility] 2019-04-18 2019-04-18 [facility] [id number] Common 08:19:00 08:19:00 [facility] [employer] [address] [facility] 2019-03-29 2019-03-29 [facility] [id number] Common 08:20:00 08:20:00 [facility] [employer] [address] [facility] 2019-03-24 2019-03-24 [facility] [id number] Common 12:24:00 12:24:00 [facility] [employer] [address] [facility] 2019-03-19 2019-03-19 [facility] [id number] Common 16:28:00 16:28:00 [facility] [employer] [address] [facility] 2018-12-25 2018-12-25 [facility] [id number] Common 13:14:00 13:14:00 [facility] [employer] [address] [facility] 2018-12-21 2018-12-21 [facility] [id number] Common 08:20:00 08:20:00 [facility] [employer] [address] [facility] 2018-11-02 2018-11-02 [facility] [id number] Common 15:49:00 15:49:00 [facility] [employer] [address] [facility] 2018-10-22 2018-10-22 [facility] [id number] Common 15:20:00 15:20:00 [facility] [employer] [address] [facility] 2018-09-21 2018-09-21 [facility] [id number] Common 09:00:00 09:00:00 [facility] [employer] [address] [facility] 2018-06-21 2018-06-21 [facility] [id number] Common 09:00:00 09:00:00 [facility] [employer] [address] [facility] 2018-04-11 2018-04-11 [facility] [id number] Common 16:35:00 16:35:00 [facility] [employer] [address] [facility] 2018-04-11 2018-04-11 [facility] [id number] Common 08:24:00 08:24:00 [facility] [employer] [address] [facility] 2018-03-23 2018-03-23 [facility] [id number] Common 09:15:00 09:15:00 [facility] [employer] [address] [facility] 2018-01-08 2018-01-08 [facility] [id number] Common 15:59:00 15:59:00 [facility] [employer] [address] [facility] 2018-01-01 2018-01-01 [facility] [id number] Common 08:45:00 08:45:00 t [employer] [address] [facility] 2017-10-06 2017-10-06 [facility] [id number] Common 09:54:00 09:54:00 [facility] [employer] [address] [facility] 2017-10-02 2017-10-02 [facility] [id number] Common 08:15:00 08:15:00 [address] [employer] [address] [facility] Results This patient has no known results.
[2022-01-01] MEDS ORDERED: FLUORESCEIN SODIUM 1 MG/WRAP ONE (12:46)
[2022-01-01] MEDS ORDERED: TETRACAINE HCL 0.5% 4ML OPTH ONE (12:46)
--- NOTE | 2022-01-01 13:17 | ER ---
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 12:36 Coronavirus screen: At this time, the client does not indicate any symptoms associated aa5 with coronavirus-19. Ebola Screen: Patient denies travel to an Ebola-affected area in the 21 days before illness onset. Initial Sepsis Screen: Does the patient meet any 2 criteria? No. Patient's initial sepsis screen is negative. Does the patient have a suspected source of infection? No. Patient's initial sepsis screen is negative. Risk Assessment: Do you want to hurt yourself or someone else? Patient reports no desire to harm self or others. Onset of symptoms was January 01, 2022. 12:36 Acuity: DOREEN 4 aa5 12:36 Method Of Arrival: Ambulatory aa5 Historical: - Allergies: 12:36 amlodipine; aa5 12:36 Aspirin; aa5 - PMHx: 12:36 Hypertension; aa5 - PSHx: 12:36 Appendectomy; aa5 - Immunization history:: Adult Immunizations unknown. - Social history:: Smoking status: Patient denies any tobacco usage or history of. Screenin:45 Abuse screen: Denies threats or abuse. Nutritional screening: No deficits noted. aa5 Tuberculosis screening: No symptoms or risk factors identified. Fall Risk None identified. Assessment: 12:40 General: Appears uncomfortable, Behavior is calm, cooperative. Pain: Complains of pain aa5 in left eye Quality of pain is described as burning. Neuro: Level of Consciousness is awake, alert, obeys commands, Oriented to person, place, time, situation. Cardiovascular: Patient's skin is warm and dry. Respiratory: Airway is patent Respiratory effort is even, unlabored, Respiratory pattern is regular, symmetrical. GI: No signs and/or symptoms were reported involving the gastrointestinal system. : No signs and/or symptoms were reported regarding the genitourinary system. EENT: Eyes are tearing on left eye Reports feels something in left eye. Derm: Skin is dry, Skin is normal, Skin temperature is warm. Musculoskeletal: Range of motion: intact in all extremities. 13:21 Neuro: Level of Consciousness is awake, alert, obeys commands, Oriented to person, aa5 place, time, situation. Respiratory: Airway is patent Respiratory effort is even, unlabored, Respiratory pattern is regular, symmetrical. Derm: Skin is dry, Skin is normal, Skin temperature is warm. Vital Signs: 12:36 BP 122 / 77; Pulse 86; Resp 16 S; Temp 97.0(TE); Pulse Ox 100% on R/A; Weight 90.72 kg aa5 (R); Height 5 ft. 5 in. (165.10 cm) (R); 12:36 Body Mass Index 33.28 (90.72 kg, 165.10 cm) aa5 ED Course: 12:33 Patient arrived in ED. mr 12:33 Milagros Abreu MD is Private Physician. mr 12:36 Arm band placed on. aa5 12:36 Patient has correct armband on for positive identification. Bed in low position. Side aa5 rails up X 1. 12:39 Triage completed. aa5 12:41 Nohemi Segovia FNP-C is [facility]. kb 12:41 Kelsey Murphy MD is Attending Physician. kb 13:20 Tina Enriquez, RN is Primary Nurse. aa5 13:21 No provider procedures requiring assistance completed. Patient did not have IV access aa5 during this emergency room visit. Administered Medications: No medications were administered Outcome: 13:17 Discharge ordered by MD. kb 13:21 Discharged to home ambulatory. aa5 13:21 Condition: stable 13:21 Discharge instructions given to patient, Instructed on discharge instructions, follow up and referral plans. Demonstrated understanding of instructions, follow-up care. 13:21 Patient left the ED. aa5 Signatures: Nohemi Segovia FNP-C FNP-Josue Luz Sawyer mr Tina Enriquez, RN RN aa5
--- NOTE | 2022-01-01 13:18 | EDPHYS ---
Physician Documentation [facility] Name: Montse Pappas Age: 71 yrs Sex: Female : 1950 Arrival Date: 01/01/2022 Time: 12:33 Bed 12 Private MD: Milagros Abreu ED Physician Kelsey Murphy HPI: 01/01 14:48 This 71 yrs old Black Female presents to ER via Ambulatory with complaints of Foreign kb Body In Eye. 14:48 The patient is experiencing foreign body sensation, to the left eye, caused by debris. kb Onset: The symptoms/episode began/occurred just prior to arrival. Duration: the symptoms are continuous. Aggravated by nothing. Alleviated by nothing. Associated signs and symptoms: Pertinent positives: None. Patient does not utilize any form of vision correction. Severity of symptoms: At their worst the symptoms were mild in the emergency department the symptoms have resolved. The patient has not experienced similar symptoms in the past. The patient has not recently seen a physician. Pt states she was emptying the trash and felt something go into left eye. States she flushed it and it feels better, but wanted to get it looked at just in case. Historical: - Allergies: 12:36 amlodipine; aa5 12:36 Aspirin; aa5 - PMHx: 12:36 Hypertension; aa5 - PSHx: 12:36 Appendectomy; aa5 - Immunization history:: Adult Immunizations unknown. - Social history:: Smoking status: Patient denies any tobacco usage or history of. ROS: 14:47 Constitutional: Negative for fever, chills, and weight loss. kb 14:47 Eyes: Positive for foreign body sensation. 14:47 All other systems are negative. Exam: 14:48 Constitutional: This is a well developed, well nourished patient who is awake, alert, kb and in no acute distress. Head/Face: Normocephalic, atraumatic. ENT: Moist Mucous membranes Respiratory: Respirations even and unlabored. No increased work of breathing. Talking in full sentences Skin: Warm, dry with normal turgor. Normal color. MS/ Extremity: Pulses equal, no cyanosis. Neurovascular intact. Full, normal range of motion. Neuro: Awake and alert, GCS 15, oriented to person, place, time, and situation. Moves all extremities. Normal gait. Psych: Awake, alert, with orientation to person, place and time. Behavior, mood, and affect are within normal limits. 14:48 Eyes: Periorbital structures: appear normal, Pupils: equal, round, and reactive to light and accomodation, Extraocular movements: intact throughout, Conjunctiva: normal, Corneas: are normal, no evidence of abrasion, no foreign body, a fluorescein strip employed to appreciate the findings. Vital Signs: 12:36 BP 122 / 77; Pulse 86; Resp 16 S; Temp 97.0(TE); Pulse Ox 100% on R/A; Weight 90.72 kg aa5 (R); Height 5 ft. 5 in. (165.10 cm) (R); 12:36 Body Mass Index 33.28 (90.72 kg, 165.10 cm) aa5 MDM: 12:41 Patient medically screened. kb 14:44 Data reviewed: vital signs, nurses notes. Data interpreted: Pulse oximetry: on room air kb is 100 %. Interpretation: normal. Counseling: I had a detailed discussion with the patient and/or guardian regarding: the historical points, exam findings, and any diagnostic results supporting the discharge/admit diagnosis, the need for outpatient follow up, a family practitioner, to return to the emergency department if symptoms worsen or persist or if there are any questions or concerns that arise at home. 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
[2022-01-01 13:30] VITALS: BP 122/77; TEMP 97; O2SAT 100
== END 2022-01-01 13:21 | disposition home or self-care (01) ==
LOC: ER 12:30
DX: T15.02XA Foreign body in cornea, left eye, initial encounter (principal); I10 Essential (primary) hypertension
CPT/HCPCS: 99281

== ENCOUNTER 2022-05-04 05:57 | Observation (INO) | payer BC, OTHER ==
--- NOTE | 2022-04-29 08:55 | RAD REPORT ---
EXAM DESCRIPTION: RAD - Chest Pa And Lat (2 Views) - 04/29/2022 8:33 am CLINICAL HISTORY: Pre op pending knee replacement COMPARISON: <Comparisons> FINDINGS: Lines: None. Lungs: No evidence of edema or pneumonia. Pleural: No significant pleural effusions or pneumothorax. Cardiac: The heart size is within normal limits. Mediastinum: Within normal limits. Bones: No acute fractures. Other: None IMPRESSION: No acute cardiopulmonary disease.
[2022-04-29 09:18] LABS: Absolute Lymphocytes (CBC) 1.1 K/uL (0.7-4.9); Hematocrit 35.2 % (36.0-45.0); Lymphocytes % 21.8 % (15.3-44.8); MCV 92.9 fL (80-100); RBC Red Blood Cell Count 3.78 M/uL (3.86-4.86)
[2022-04-29 09:19] LABS: SARS-CoV-2 Antigen Rapid Res Negative (Negative)
[2022-04-29 09:48] LABS: Protime INR 1.05
[2022-04-29 12:58] LABS: Potassium 3.8 mmol/L (3.5-5.1)
[2022-05-04] MEDS ORDERED: CEFAZOLIN SODIUM 2 GM/VIAL ONE (06:09)
[2022-05-04] MEDS ORDERED: Ringers Lactate 1,000 ML IV ONE ×2 (06:09→09:13)
[2022-05-04] MEDS ORDERED: LIDOCAINE 2% MPF 5 ML VIAL ONE ×2 (07:04→08:14)
[2022-05-04] MEDS ORDERED: dexAMETHasone 10 MG/ML VIAL ONE ×2 (07:05→09:40)
[2022-05-04] MEDS ORDERED: MIDAZOLAM HCL 2 MG/2 ML INJ ONE ×2 (07:07)
[2022-05-04] MEDS ORDERED: BUPIVACAINE 0.25% PF 30 ML VIAL ONE (07:08)
[2022-05-04] MEDS ORDERED: EPINEPHRINE/PF 1 MG/ML AMP ONE (07:08)
[2022-05-04] MEDS ORDERED: FENTANYL CITR 100 MCG/2 ML ONE (07:09)
[2022-05-04] MEDS ORDERED: TRANEXAMIC ACID 1,000 MG/10 ML VIAL IV ONE (07:13)
[2022-05-04] MEDS ORDERED: HYDROMORPHONE HCL 1 MG/ML INJ ONE (08:09)
[2022-05-04] MEDS ORDERED: propofoL 200 MG/20 ML VIAL IV ONE (08:13)
[2022-05-04] MEDS ORDERED: KETAMINE HCL 500 MG/5 ML VIAL ONE (08:41)
[2022-05-04] MEDS ORDERED: ONDANSETRON 4 MG/2 ML VIAL ONE (09:40)
--- NOTE | 2022-05-04 10:59 | P.BOP ---
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
[2022-05-04] MEDS ORDERED: MORPHINE 2 MG/ML SYR IV PRN (11:03)
[2022-05-04] MEDS ORDERED: ACETAMINOPHEN 325 MG TABLET PO PRN (11:03)
[2022-05-04] MEDS ORDERED: ONDANSETRON 4 MG/2 ML VIAL IV PRN (11:03)
[2022-05-04] MEDS ORDERED: DOCUSATE NA 100 MG CAP PO PRN (11:03)
[2022-05-04] MEDS ORDERED: TRAMADOL HCL 50 MG TAB PO PRN (11:09)
[2022-05-04] MEDS: HYDROMORPHONE HCL 1 MG/ML INJ ONE ×2 (11:10→11:20)
[2022-05-04] MEDS ORDERED: PROMETHAZINE INJ 25 MG/ML AMP ONE (11:29)
[2022-05-04 11:49] LABS: Hematocrit 32.5 % (36.0-45.0)
--- NOTE | 2022-05-04 12:00 | RAD REPORT ---
EXAM DESCRIPTION: RAD - Knee Right 2 View - 05/04/2022 11:51 am CLINICAL HISTORY: Post Op COMPARISON: Knee Right 3 View dated 12/20/2014 FINDINGS: Right total knee prosthesis has been placed. Bones and hardware show no suspicious or unex pected finding. Anterior skin staple line is seen. Air is present in the knee joint space, not unexpe cted. IMPRESSION: Right total knee prosthesis placement with no suspicious or unexpected finding.
--- OUTSIDE RECORDS SUMMARY | 2022-05-04 12:25 | XMS REPORT | Continuity of Care Document ---
:1950 Author Organization [facility] t Address [address] [place] [address] Care Team Providers Name Role Phone Milagros Abreu Attending Clinician Unavailable Payers Payer Name Policy Type Policy Number Effective Date Expiration Date S ource Blue Cross 6 [id number] 2021 Common Spiri t Blue Shield of 00:00:00 - [facility] AETNA 53 [id number] 2020 [facility] 00:00:00 [facility] Problems Condition Condition Condition Status Onset Resolution Last Treating Co mments Source Name Details Category Date Date Treatment Clinician Date Primary Localized Problem Commo n osteoarthr osteoarthr Sp korey itis itis of - CHI right knee [facility] Gastro-eso Gastro-eso Problem C ommon phageal phageal Spirit reflux reflux - [facility]I disease disease St with with [facility] esophag[facility] esophagiti Me dical s, without s, without Ce nter bleeding bleeding [id number] Arthritis Problem Co mmon [id number] of knee, Spirit right - [facility] [id number] Status Problem Commo n 105 post total Spirit right knee - [facility] replacemen [facility] Vitamin Vitamin B Problem Commo n B12 12 Spirit deficiency deficiency - [facility] (non St anemic) [facility] History of Personal Problem Com mon polyp of history of Spir it colon colonic - [facility] polyps [facility] Abdominal Abdominal Problem Com mon bloating bloating [facility] [id number] Essential Problem Comm on hypertensi Spirit on - CHI [facility] [id number] Diaphragma Problem Com mon tic hernia Spirit without - [facility] obstructio [facility] Allergic Allergic Problem Commo n conjunctiv conjunctiv Sp korey itis of itis of - [facility]I both eyes both eyes [facility] Allergic Allergic Problem Commo n rhinitis rhinitis Spirit due to due to - [facility]I pollen pollen [facility] Burping Burping Problem Common [facility] [id number] BMI Problem Common 34.0-34.9, [facility] adult - [facility] Family Family Problem Common history of history of Sp korey diabetes type 2 - [facility] mellitus diabetes type 2 mellitus [facility] [id number] Morbid Problem Commo n 9104 (severe) [facility] obesity - [facility] due to [facility] Overactive Overactive Problem C ommon bladder bladder [facility] Family Family Problem Common history of history of Sp korey malignant colon - [facility] neoplasm cancer [facility] gastrointe Medica l stinal Center tract [id number] +5th digit Problem Co mmon eff Spirit 04/16/20*[place] - [facility] Center with esophagiti s Mixed Mixed Problem Common incontinen stress and Sp korey ce urge [facility] urinary [facility] ce Medical Center Hypertensi HTN Problem Commo n on (hypertens [facility] ion) [facility] Abnormal Abnormal Problem Commo n mammogram mammogram Spir it [facility] [id number] Primary Problem Comm on osteoarthr [facility] itis of - [facility]I right knee [facility] Vitamin D Vitamin D Problem Com mon deficiency deficiency Sp korey - [facility] [id number] Varicose Problem Commo n veins of Spirit both lower - [facility] extremitie [facility] pain Medical Center Gastritis Gastritis Problem Com mon [facility] Microalbum Microalbum Problem C ommon inuria inuria [facility] Obesity Obesity Problem Common [facility] [phone] Need for Problem Comm on -polyval [facility] ent - [facility] pneumococc [facility] polysaccha Medica l ride [place] vaccine [id number] Tinnitus Problem Commo n of right [facility] ear [facility] [id number] Localized Problem Com mon swelling, Spirit mass and - CHI lump, neck [facility] Urinary Urinary Problem Common incontinen incontinen Sp korey ce [facility] [id number] Anemia, Problem Commo n unspecifie Spirit d type [facility] Esophagiti Esophagiti Problem C [facility] [phone] Gastroesop Problem Co mmon hageal Spirit reflux - [facility]I disease [facility] esophagiti Medica [facility] [id number] Gastro-eso Problem Co mmon phageal Spirit reflux - [facility]I disease [facility] esophagiti Medica [facility] [phone] Pain of Problem Comm on [id number] left heel [facility] Hemorrhoid Hemorrhoid Problem C [facility] [id number] Urticaria Problem Com [facility] [phone] Unsteady Problem Commo n [facility] Allergies, Adverse Reactions, Alerts Allergy Allergy Status Severity Reaction(s) Onset Inactive Treating Comm ents Source Name Type Date Date Clinician aspirin aspirin Active Gets Hive Commo n with whitew Spiri t tablet [facility] strawber strawber Active Unknown Commo n ry ry Spirit allergen allergen - [facility] ic ic [facility] Social History Social Habit Start Date Stop Date Quantity Comments Source History of Tobacco Use Co [facility] Sex Assigned At Com [facility] Smoking Status Start Date Stop Date Source Never Smoker Common [facility] Medications Ordered Filled Start Stop Current Ordering Indication Dosage Frequency Signature Comments Components Source Medication Medication Date Date Medication? Clinician (SIG) Name Name HYDROcodone HYDROcodone 2021-07 No 1{table HYDROcodon -Acetaminop -Acetaminop 0-13 t_as_ne e-Acetamin hen 7.5-325 hen 7.5-325 00:00: eded} ophen MG MG 00 7.5-325 MG HYDROcodone HYDROcodone 2021-07 No 1{table HYDROcodon -Acetaminop -Acetaminop 0-11 t_as_ne e-Acetamin hen 7.5-325 hen 7.5-325 00:00: eded} ophen MG MG 00 7.5-325 MG Xarelto 10 Xarelto 10 2021-07 No 1{table QD Xarelto 10 MG MG 0-11 t} MG 00:00: 00 HYDROcodone HYDROcodone 2021-07 No 1{table HYDROcodon -Acetaminop -Acetaminop 0-11 t_as_ne e-Acetamin hen 7.5-325 hen 7.5-325 00:00: eded} ophen MG MG 00 7.5-325 MG Xarelto 10 Xarelto 10 2021-07 No 1{table QD Xarelto 10 MG MG 0-11 t} MG 00:00: 00 Xarelto 10 Xarelto 10 2021-07 No 1{table QD Xarelto 10 MG MG 0-11 t} MG 00:00: 00 Kenalog Kenalog 2021-0 No 40mg Common (Triamcinol (Triamcinol 5-31 S pirit one) one) 00:00: - CHI 00 [facility] Bupivicaine Bupivicaine 2-0 No 2.5mg Common [place]31 Spirit 00:00: - CHI 00 [facility] Kenalog Kenalog 2021-0 No 40mg Common (Triamcinol (Triamcinol 5-31 S pirit one) one) 00:00: - CHI 00 [facility] Bupivicaine Bupivicaine 2-0 No 2.5mg Common [place]-31 Spirit 00:00: - CHI 00 [facility] Kenalog Kenalog 2-0 No 40mg Common (Triamcinol (Triamcinol 5-31 S pirit one) one) 00:00: - CHI 00 [facility] Bupivicaine Bupivicaine 2-0 No 2.5mg Common [place] 5-31 Spirit 00:00: - CHI 00 [facility] Kenalog Kenalog 2-0 No 40mg Common (Triamcinol (Triamcinol 5-31 S pirit one) one) 00:00: - CHI 00 [facility] Bupivicaine Bupivicaine 2-0 No 2.5mg Common [place] 5-31 Spirit 00:00: - CHI 00 [facility] Kenalog Kenalog 2-0 No 40mg Common (Triamcinol (Triamcinol 5-31 S pirit one) one) 00:00: - CHI 00 [facility] Bupivicaine Bupivicaine 2021-0 No 2.5mg Common [place] 5-31 Spirit 00:00: - CHI 00 [facility] Kenalog Kenalog 2021-0 No 40mg Common (Triamcinol (Triamcinol 5-31 S pirit one) one) 00:00: - CHI 00 [facility] Bupivicaine Bupivicaine 2021-0 No 2.5mg Common [place] 5-31 Spirit 00:00: - CHI 00 [facility] Kenalog Kenalog 2021-0 No 40mg Common (Triamcinol (Triamcinol 5-31 S pirit one) one) 00:00: - CHI 00 [facility] Bupivicaine Bupivicaine 2021-0 No 2.5mg Common [place] 5-31 Spirit 00:00: - CHI 00 [facility] Kenalog Kenalog 2021-0 No 40mg Common (Triamcinol (Triamcinol 5-31 S pirit one) one) 00:00: - CHI 00 [facility] Bupivicaine Bupivicaine 2021-0 No 2.5mg Common [place] 5-31 Spirit 00:00: - CHI 00 [facility] Kenalog Kenalog 2021-0 No 40mg Common (Triamcinol (Triamcinol 5-31 S pirit one) one) 00:00: - CHI 00 [facility] Bupivicaine Bupivicaine 2021-0 No 2.5mg Common [place] 5-31 Spirit 00:00: - CHI 00 [facility] Kenalog Kenalog 2021-0 No 40mg Common (Triamcinol (Triamcinol 5-31 S pirit one) one) 00:00: - CHI 00 [facility] Bupivicaine Bupivicaine 2-0 No 2.5mg Common [place] 5-31 Spirit 00:00: - CHI 00 [facility] Kenalog Kenalog 2-0 No 40mg Common (Triamcinol (Triamcinol 5-31 S pirit one) one) 00:00: - CHI 00 [facility] Bupivicaine Bupivicaine 2-0 No 2.5mg Common [place] 5-31 Spirit 00:00: - CHI 00 [facility] Kenalog Kenalog 2021-0 No 40mg Common (Triamcinol (Triamcinol 5-31 S pirit one) one) 00:00: - CHI 00 [facility] Bupivicaine Bupivicaine 2-0 No 2.5mg Common [place] 5-31 Spirit 00:00: - CHI 00 [facility] Cetirizine Cetirizine 2021-0 No 1{table Cetirizine HCl 10 MG HCl 10 MG 5-23 t} HCl 10 MG 00:00: 00 Cetirizine Cetirizine 2021-0 No 1{table Cetirizine HCl 10 MG HCl 10 MG 5-23 t} HCl 10 MG 00:00: 00 Cetirizine Cetirizine 2021-0 No 1{table Cetirizine HCl 10 MG HCl 10 MG 5-23 t} HCl 10 MG 00:00: 00 Cetirizine Cetirizine 2021-0 No 1{table Cetirizine HCl 10 MG HCl 10 MG 5-23 t} HCl 10 MG 00:00: 00 Cetirizine Cetirizine 2021-0 No 1{table Cetirizine HCl 10 MG HCl 10 MG 5-23 t} HCl 10 MG 00:00: 00 Cetirizine Cetirizine 2-0 No 1{table Cetirizine HCl 10 MG HCl 10 MG 5-23 t} HCl 10 MG 00:00: 00 Cetirizine Cetirizine 2021-0 No 1{table Cetirizine HCl 10 MG HCl 10 MG 5-23 t} HCl 10 MG 00:00: 00 Cetirizine Cetirizine 2-0 No 1{table Cetirizine HCl 10 MG HCl 10 MG 5-23 t} HCl 10 MG 00:00: 00 Cetirizine Cetirizine 2021-0 No 1{table Cetirizine HCl 10 MG HCl 10 MG 5-23 t} HCl 10 MG 00:00: 00 Cetirizine Cetirizine 2021-0 No 1{table Cetirizine HCl 10 MG HCl 10 MG 5-23 t} HCl 10 MG 00:00: 00 Cetirizine Cetirizine 2021-0 No 1{table Cetirizine HCl 10 MG HCl 10 MG 5-23 t} HCl 10 MG 00:00: 00 Cetirizine Cetirizine 2021-0 No 1{table Cetirizine HCl 10 MG HCl 10 MG 5-23 t} HCl 10 MG 00:00: 00 Cetirizine Cetirizine 2021-0 No 1{table Cetirizine HCl 10 MG HCl 10 MG 5-23 t} HCl 10 MG 00:00: 00 Contrave Contrave 2021-0 2- No 2{table BID Contrave 8-90 MG 8-90 MG 5-23 08-21 ts} 8-90 MG 00:00: 00:00 00 :00 Contrave Contrave 2021-0 2- No 2{table BID Contrave 8-90 MG 8-90 MG 5-23 08-21 ts} 8-90 MG 00:00: 00:00 00 :00 Contrave Contrave 2021-0 2- No 2{table BID Contrave 8-90 MG 8-90 MG 5-23 08-21 ts} 8-90 MG 00:00: 00:00 00 :00 Contrave Contrave 2021-0 2- No 2{table BID Contrave 8-90 MG 8-90 MG 5-23 08-21 ts} 8-90 MG 00:00: 00:00 00 :00 Diclofenac Diclofenac 2021-0 2- No TID Diclofenac Sodium 1 % Sodium 1 % 08-27-12 Sodium 1 % 00:00: 00:00 00 :00 Contrave Contrave 2021-0 2021- No BID Contrave 8-90 MG 8-90 MG -05 21-12 8-90 MG 00:00: 00:00 00 :00 Medrol 4 MG Medrol 4 MG 2021-0 2- No QD -30 07-20 00:00: 00:00 00 :00 Medrol 4 MG Medrol 4 MG 2021-0 2021- No QD Medrol 4 -14 -20 MG 00:00: 00:00 00 :00 Calcium 600 Calcium 600 2021-0 No 1{table BID Calcium MG MG 1-04 t_with_ 600 MG 00:00: meals} 00 Calcium 600 Calcium 600 2022-0 No 1{table BID Calcium MG MG 1-04 t_with_ 600 MG 00:00: meals} 00 Calcium 600 Calcium 600 2022-0 No 1{table BID MG MG 1-04 t_with_ 00:00: meals} 00 Calcium 600 Calcium 600 2022-0 No 1{table BID Calcium MG MG 1-04 t_with_ 600 MG 00:00: meals} 00 Calcium 600 Calcium 600 2022-0 No 1{table BID Calcium MG MG 1-04 t_with_ 600 MG 00:00: meals} 00 Calcium 600 Calcium 600 2022-0 No 1{table BID Calcium MG MG 1-04 t_with_ 600 MG 00:00: meals} 00 Calcium 600 Calcium 600 2022-0 No 1{table BID Calcium MG MG 1-04 t_with_ 600 MG 00:00: meals} 00 Calcium 600 Calcium 600 2022-0 No 1{table BID Calcium MG MG 1-04 t_with_ 600 MG 00:00: meals} 00 Calcium 600 Calcium 600 2022-0 No 1{table BID Calcium MG MG 1-04 t_with_ 600 MG 00:00: meals} 00 Calcium 600 Calcium 600 2022-0 No 1{table BID Calcium MG MG 1-04 t_with_ 600 MG 00:00: meals} 00 Calcium 600 Calcium 600 2022-0 No 1{table BID Calcium MG MG 1-04 t_with_ 600 MG 00:00: meals} 00 Calcium 600 Calcium 600 2022-0 No 1{table BID Calcium MG MG 1-04 t_with_ 600 MG 00:00: meals} 00 Calcium 600 Calcium 600 2022-0 No 1{table BID Calcium MG MG 1-04 t_with_ 600 MG 00:00: meals} 00 Calcium 600 Calcium 600 2022-0 No 1{table BID Calcium MG MG 1-04 t_with_ 600 MG 00:00: meals} 00 Calcium 600 Calcium 600 2022-0 No 1{table BID Calcium MG MG 1-04 t_with_ 600 MG 00:00: meals} 00 Calcium 600 Calcium 600 2022-0 No 1{table BID Calcium MG MG 1-04 t_with_ 600 MG 00:00: meals} 00 Calcium 600 Calcium 600 2022-0 No 1{table BID Calcium MG MG 1-04 t_with_ 600 MG 00:00: meals} 00 Kenalog Kenalog 2020-0 No 40mg Common (Triamcinol (Triamcinol 1-15 S pirit one) one) 00:00: - CHI 00 [facility] Kenalog Kenalog 2020-0 No 40mg Common (Triamcinol (Triamcinol 1-15 S pirit one) one) 00:00: - CHI 00 [facility] Kenalog Kenalog 2020-0 No 40mg Common (Triamcinol (Triamcinol 1-15 S pirit one) one) 00:00: - CHI 00 [facility] Kenalog Kenalog 2020-0 No 40mg Common (Triamcinol (Triamcinol 1-15 S pirit one) one) 00:00: - CHI 00 [facility] Kenalog Kenalog 2020-0 No 40mg Common (Triamcinol (Triamcinol 1-15 S pirit one) one) 00:00: - CHI 00 [facility] Kenalog Kenalog 2020-0 No 40mg Common (Triamcinol (Triamcinol 1-15 S pirit one) one) 00:00: - CHI 00 [facility] Kenalog Kenalog 2020-0 No 40mg Common (Triamcinol (Triamcinol 1-15 S pirit one) one) 00:00: - CHI 00 [facility] Kenalog Kenalog 2020-0 No 40mg Common (Triamcinol (Triamcinol 1-15 S pirit one) one) 00:00: - CHI 00 [facility] Kenalog Kenalog 2020-0 No 40mg Common (Triamcinol (Triamcinol 1-15 S pirit one) one) 00:00: - CHI 00 [facility] Kenalog Kenalog 2020-0 No 40mg Common (Triamcinol (Triamcinol 1-15 S pirit one) one) 00:00: - CHI 00 [facility] Kenalog Kenalog 2020-0 No 40mg Common (Triamcinol (Triamcinol 1-15 S pirit one) one) 00:00: - CHI 00 [facility] Kenalog Kenalog 2020-0 No 40mg Common (Triamcinol (Triamcinol 1-15 S pirit one) one) 00:00: - CHI 00 [facility] Kenalog Kenalog 2020-0 No 40mg Common (Triamcinol (Triamcinol 1-15 S pirit one) one) 00:00: - CHI 00 [facility] Cyclobenzap Cyclobenzap 2020-0 2020- No Na Abreu 1 tablet Common rine HCl rine HCl 03-27 as needed S pirit 00:00: 00:00 - CHI 00 :00 [facility] Diclofenac Diclofenac 2020-0 2020- No Na Abreu 1 tablet Common Sodium Sodium 03-27 with food Spiri t 00:00: 00:00 or milk - CHI 00 :00 [facility] Adipex-P Adipex-P 2020-0 2020- No Na Abreu 1 tablet Common 01-19- Spirit 00:00: 00:00 - CHI 00 :00 [facility] Kenalog Kenalog 2019-0 No 40mg Common (Triamcinol (Triamcinol 5-11 S pirit one) one) 00:00: - CHI 00 [facility] Bupivicaine Bupivicaine 2020-0 No 4mL Common [place] 5-11 Spirit 00:00: - CHI 00 [facility] Kenalog Kenalog 2020-0 No 40mg Common (Triamcinol (Triamcinol 5-11 S pirit one) one) 00:00: - CHI 00 [facility] Bupivicaine Bupivicaine 2020-0 No 4mL Common [place] 5-11 Spirit 00:00: - CHI 00 [facility] Kenalog Kenalog 2020-0 No 40mg Common (Triamcinol (Triamcinol 5-11 S pirit one) one) 00:00: - CHI 00 [facility] Bupivicaine Bupivicaine 2020-0 No 4mL Common [place] 5-11 Spirit 00:00: - CHI 00 [facility] Kenalog Kenalog 2020-0 No 40mg Common (Triamcinol (Triamcinol 5-11 S pirit one) one) 00:00: - CHI 00 [facility] Bupivicaine Bupivicaine 2020-0 No 4mL Common [place] 5-11 Spirit 00:00: - CHI 00 [facility] Kenalog Kenalog 2020-0 No 40mg Common (Triamcinol (Triamcinol 5-11 S pirit one) one) 00:00: - CHI 00 [facility] Bupivicaine Bupivicaine 2020-0 No 4mL Common [place] 5-11 Spirit 00:00: - CHI 00 [facility] Kenalog Kenalog 2020-0 No 40mg Common (Triamcinol (Triamcinol 5-11 S pirit one) one) 00:00: - CHI 00 [facility] Bupivicaine Bupivicaine 2020-0 No 4mL Common [place] 5-11 Spirit 00:00: - CHI 00 [facility] Kenalog Kenalog 2020-0 No 40mg Common (Triamcinol (Triamcinol 5-11 S pirit one) one) 00:00: - CHI 00 [facility] Bupivicaine Bupivicaine 2020-0 No 4mL Common [place] 5-11 Spirit 00:00: - CHI 00 [facility] Kenalog Kenalog 2020-0 No 40mg Common (Triamcinol (Triamcinol 5-11 S pirit one) one) 00:00: - CHI 00 [facility] Bupivicaine Bupivicaine 2020-0 No 4mL Common [place] 5-11 Spirit 00:00: - CHI 00 [facility] Kenalog Kenalog 2020-0 No 40mg Common (Triamcinol (Triamcinol 5-11 S pirit one) one) 00:00: - CHI 00 [facility] Bupivicaine Bupivicaine 2020-0 No 4mL Common [place] 5-11 Spirit 00:00: - CHI 00 [facility] Kenalog Kenalog 2020-0 No 40mg Common (Triamcinol (Triamcinol 5-11 S pirit one) one) 00:00: - CHI 00 [facility] Bupivicaine Bupivicaine 2020-0 No 4mL Common [place] 5-11 Spirit 00:00: - CHI 00 [facility] Kenalog Kenalog 2020-0 No 40mg Common (Triamcinol (Triamcinol 5-11 S pirit one) one) 00:00: - CHI 00 [facility] Bupivicaine Bupivicaine 2020-0 No 4mL Common [place] 5-11 Spirit 00:00: - CHI 00 [facility] Kenalog Kenalog 2020-0 No 40mg Common (Triamcinol (Triamcinol 5-11 S pirit one) one) 00:00: - CHI 00 [facility] Bupivicaine Bupivicaine 2020-0 No 4mL Common [place] 5-11 Spirit 00:00: - CHI 00 [facility] Kenalog Kenalog 2020-0 No 40mg Common (Triamcinol (Triamcinol 5-11 S pirit one) one) 00:00: - CHI 00 [facility] Bupivicaine Bupivicaine 2020-0 No 4mL Common [place] 5-11 Spirit 00:00: - CHI 00 [facility] Meclizine Meclizine 2020-0 Yes Na Abreu 1 tablet Common HCl HCl 1-23 as needed Spirit 00:00: - CHI 00 [facility] Zofran Zofran 2020-0 Yes Na Abreu 1 tablet Co mmon 1-23 Spirit 00:00: - CHI 00 [facility] Zofran 4 MG Zofran 4 MG 2020-0 No 1{table Zofran 4 1-23 t} MG 00:00: 00 Meclizine Meclizine 2020-0 No 1{table Meclizine HCl 25 MG HCl 25 MG 1-23 t_as_ne HCl 25 MG 00:00: eded} 00 Kenalog Kenalog 2020-0 No 40mg Common (Triamcinol (Triamcinol 1-23 S pirit one) one) 00:00: - CHI 00 [facility] Zofran 4 MG Zofran 4 MG 2020-0 No 1{table Zofran 4 1-23 t} MG 00:00: 00 Meclizine Meclizine 2020-0 No 1{table Meclizine HCl 25 MG HCl 25 MG 1-23 t_as_ne HCl 25 MG 00:00: eded} 00 Meclizine Meclizine 2020-0 No 1{table HCl 25 MG HCl 25 MG 1-23 t_as_ne 00:00: eded} 00 Zofran 4 MG Zofran 4 MG 2020-0 No 1{table 1-23 t} 00:00: 00 Zofran 4 MG Zofran 4 MG 2020-0 No 1{table Zofran 4 1-23 t} MG 00:00: 00 Meclizine Meclizine 2020-0 No 1{table Meclizine HCl 25 MG HCl 25 MG 1-23 t_as_ne HCl 25 MG 00:00: eded} 00 Meclizine Meclizine 2020-0 No 1{table Meclizine HCl 25 MG HCl 25 MG 1-23 t_as_ne HCl 25 MG 00:00: eded} 00 Zofran 4 MG Zofran 4 MG 2020-0 No 1{table Zofran 4 1-23 t} MG 00:00: 00 Zofran 4 MG Zofran 4 MG 2020-0 No 1{table Zofran 4 1-23 t} MG 00:00: 00 Meclizine Meclizine 2020-0 No 1{table Meclizine HCl 25 MG HCl 25 MG 1-23 t_as_ne HCl 25 MG 00:00: eded} 00 Kenalog Kenalog 2020-0 No 40mg Common (Triamcinol (Triamcinol 1-23 S pirit one) one) 00:00: - CHI 00 [facility] Meclizine Meclizine 2020-0 No 1{table Meclizine HCl 25 MG HCl 25 MG 1-23 t_as_ne HCl 25 MG 00:00: eded} 00 Zofran 4 MG Zofran 4 MG 2020-0 No 1{table Zofran 4 1-23 t} MG 00:00: 00 Kenalog Kenalog 2020-0 No 40mg Common (Triamcinol (Triamcinol 1-23 S pirit one) one) 00:00: - CHI 00 [facility] Meclizine Meclizine 2020-0 No 1{table Meclizine HCl 25 MG HCl 25 MG 1-23 t_as_ne HCl 25 MG 00:00: eded} 00 Zofran 4 MG Zofran 4 MG 2020-0 No 1{table Zofran 4 1-23 t} MG 00:00: 00 Kenalog Kenalog 2020-0 No 40mg Common (Triamcinol (Triamcinol 1-23 S pirit one) one) 00:00: - CHI 00 [facility] Meclizine Meclizine 2020-0 No 1{table Meclizine HCl 25 MG HCl 25 MG 1-23 t_as_ne HCl 25 MG 00:00: eded} 00 Zofran 4 MG Zofran 4 MG 2020-0 No 1{table Zofran 4 1-23 t} MG 00:00: 00 Kenalog Kenalog 2020-0 No 40mg Common (Triamcinol (Triamcinol 1-23 S pirit one) one) 00:00: - CHI 00 [facility] Meclizine Meclizine 2020-0 No 1{table Meclizine HCl 25 MG HCl 25 MG 1-23 t_as_ne HCl 25 MG 00:00: eded} 00 Zofran 4 MG Zofran 4 MG 2020-0 No 1{table Zofran 4 1-23 t} MG 00:00: 00 Kenalog Kenalog 2020-0 No 40mg Common (Triamcinol (Triamcinol 1-23 S pirit one) one) 00:00: - CHI 00 [facility] Meclizine Meclizine 2020-0 No 1{table Meclizine HCl 25 MG HCl 25 MG 1-23 t_as_ne HCl 25 MG 00:00: eded} 00 Zofran 4 MG Zofran 4 MG 2020-0 No 1{table Zofran 4 1-23 t} MG 00:00: 00 Kenalog Kenalog 2020-0 No 40mg Common (Triamcinol (Triamcinol 1-23 S pirit one) one) 00:00: - CHI 00 [facility] Meclizine Meclizine 2020-0 No 1{table Meclizine HCl 25 MG HCl 25 MG 1-23 t_as_ne HCl 25 MG 00:00: eded} 00 Zofran 4 MG Zofran 4 MG 2020-0 No 1{table Zofran 4 1-23 t} MG 00:00: 00 Kenalog Kenalog 2020-0 No 40mg Common (Triamcinol (Triamcinol 1-23 S pirit one) one) 00:00: - CHI 00 [facility] Meclizine Meclizine 2020-0 No 1{table Meclizine HCl 25 MG HCl 25 MG 1-23 t_as_ne HCl 25 MG 00:00: eded} 00 Zofran 4 MG Zofran 4 MG 2020-0 No 1{table Zofran 4 1-23 t} MG 00:00: 00 Kenalog Kenalog 2020-0 No 40mg Common (Triamcinol (Triamcinol 1-23 S pirit one) one) 00:00: - CHI 00 [facility] Zofran 4 MG Zofran 4 MG 2020-0 No 1{table Zofran 4 1-23 t} MG 00:00: 00 Meclizine Meclizine 2020-0 No 1{table Meclizine HCl 25 MG HCl 25 MG 1-23 t_as_ne HCl 25 MG 00:00: eded} 00 Kenalog Kenalog 2020-0 No 40mg Common (Triamcinol (Triamcinol 1-23 S pirit one) one) 00:00: - CHI 00 [facility] Zofran 4 MG Zofran 4 MG 2020-0 No 1{table Zofran 4 1-23 t} MG 00:00: 00 Meclizine Meclizine 2020-0 No 1{table Meclizine HCl 25 MG HCl 25 MG 1-23 t_as_ne HCl 25 MG 00:00: eded} 00 Kenalog Kenalog 2020-0 No 40mg Common (Triamcinol (Triamcinol 1-23 S pirit one) one) 00:00: - [facility]I 00 [facility] Zofran 4 MG Zofran 4 MG 2020-0 No 1{table Zofran 4 1-23 t} MG 00:00: 00 Meclizine Meclizine 2020-0 No 1{table Meclizine HCl 25 MG HCl 25 MG 1-23 t_as_ne HCl 25 MG 00:00: eded} 00 Kenalog Kenalog 2020-0 No 40mg Common (Triamcinol (Triamcinol 1-23 S pirit one) one) 00:00: - [facility] Zofran 4 MG Zofran 4 MG 2020-0 No 1{table Zofran 4 -23 t} MG 00:00: 00 Meclizine Meclizine 2020-0 No 1{table Meclizine HCl 25 MG HCl 25 MG -23 t_as_ne HCl 25 MG 00:00: eded} 00 Kenalog Kenalog 2020-0 No 40mg Common (Triamcinol (Triamcinol 1-23 S pirit one) one) 00:00: - [facility] LIDOCAINE LIDOCAINE 2019-1 No 4mL Com mon HCL 10MG/ML HCL 10MG/ML 1-25 S pirit 00:00: - [facility] Kenalog Kenalog 2019-1 No 1mL Common (Triamcinol (Triamcinol 1-25 S pirit one) one) 00:00: - [facility] LIDOCAINE LIDOCAINE 2019-1 No 4mL Com mon HCL 10MG/ML HCL 10MG/ML 1-25 S pirit 00:00: - [facility] Kenalog Kenalog 2019-1 No 1mL Common (Triamcinol (Triamcinol 1-25 S pirit one) one) 00:00: - [facility] LIDOCAINE LIDOCAINE 2019-1 No 4mL Com mon HCL 10MG/ML HCL 10MG/ML 1-25 S pirit 00:00: - [facility] Kenalog Kenalog 2019-1 No 1mL Common (Triamcinol (Triamcinol 1-25 S pirit one) one) 00:00: - [facility] LIDOCAINE LIDOCAINE 2019-1 No 4mL Com mon HCL 10MG/ML HCL 10MG/ML 1-25 S pirit 00:00: - [facility] Kenalog Kenalog 2019-1 No 1mL Common (Triamcinol (Triamcinol 1-25 S pirit one) one) 00:00: - [facility] LIDOCAINE LIDOCAINE 2019-1 No 4mL Com mon HCL 10MG/ML HCL 10MG/ML 1-25 S pirit 00:00: - [facility] Kenalog Kenalog 2019-1 No 1mL Common (Triamcinol (Triamcinol 1-25 S pirit one) one) 00:00: - [facility] LIDOCAINE LIDOCAINE 2019-1 No 4mL Com mon HCL 10MG/ML HCL 10MG/ML 1-25 S pirit 00:00: - [facility] Kenalog Kenalog 2019-1 No 1mL Common (Triamcinol (Triamcinol 1-25 S pirit one) one) 00:00: - [facility] LIDOCAINE LIDOCAINE 2019-1 No 4mL Com mon HCL 10MG/ML HCL 10MG/ML 1-25 S pirit 00:00: - [facility] Kenalog Kenalog 2019-1 No 1mL Common (Triamcinol (Triamcinol 1-25 S pirit one) one) 00:00: - [facility] LIDOCAINE LIDOCAINE 2019-1 No 4mL Com mon HCL 10MG/ML HCL 10MG/ML 1-25 S pirit 00:00: - [facility] Kenalog Kenalog 2019- No 1mL Common (Triamcinol (Triamcinol 1-25 S pirit one) one) 00:00: - [facility] LIDOCAINE LIDOCAINE 2019-1 No 4mL Com mon HCL 10MG/ML HCL 10MG/ML 1-25 S pirit 00:00: - [facility] Kenalog Kenalog 2019-1 No 1mL Common (Triamcinol (Triamcinol 1-25 S pirit one) one) 00:00: - [facility] LIDOCAINE LIDOCAINE 2019-1 No 4mL Com mon HCL 10MG/ML HCL 10MG/ML 1-25 S pirit 00:00: - [facility] Kenalog Kenalog 2019-1 No 1mL Common (Triamcinol (Triamcinol 1-25 S pirit one) one) 00:00: - [facility] LIDOCAINE LIDOCAINE 2019-1 No 4mL Com mon HCL 10MG/ML HCL 10MG/ML 1-25 S pirit 00:00: - [facility] Kenalog Kenalog 2019-1 No 1mL Common (Triamcinol (Triamcinol 1-25 S pirit one) one) 00:00: - [facility] LIDOCAINE LIDOCAINE 2019- No 4mL Com mon HCL 10MG/ML HCL 10MG/ML 1-25 S pirit 00:00: - [facility] Kenalog Kenalog 2019- No 1mL Common (Triamcinol (Triamcinol 1-25 S pirit one) one) 00:00: - [facility] LIDOCAINE LIDOCAINE 2019- No 4mL Com mon HCL 10MG/ML HCL 10MG/ML 1-25 S pirit 00:00: - [facility] Kenalog Kenalog 2018- No 1mL Common (Triamcinol (Triamcinol 1-25 S pirit one) one) 00:00: - [facility] Flonase Flonase Yes Na Abreu 2 spray in Common each Spirit nostril [facility] Vitamin B12 Vitamin B12 Yes Na Abreu one Common [facility] Azelastine Azelastine Yes Na Abreu INSTILL 1 Common HCl HCl DROP INTO Spirit [facility]FFECTED [facility] Vitamin D3 Vitamin D3 Yes Na Abreu 1 capsule Common [facility] Pantoprazol Pantoprazol Yes Na Abreu 1 tablet Common e Sodium e Sodium [facility] Amlodipine Amlodipine Yes Na Abreu 1 capsule Common Besy-Benaze Besy-Benaze S pirit pril HCl pril HCl [facility] Meloxicam Meloxicam Yes Na Abreu not Co mmon defined [facility] Zyrtec Zyrtec Yes Na Abreu 1 tablet Comm on Allergy Allergy [facility] myrbetriq myrbetriq Yes Na Abreu 1 tablet Common XR XR [facility] Amlodipine Amlodipine Yes Na Abreu 1 cap Common Besy-Benaze Besy-Benaze S pirit pril HCl pril HCl [facility] Vitamin B12 Vitamin B12 No QD Vitamin 2500 2500 B12 2500 ZyrTEC ZyrTEC No 1{table QD ZyrTEC Allergy 10 Allergy 10 t} Allergy 10 MG MG MG Diclofenac Diclofenac No Diclofenac Sodium 50 Sodium 50 Sodium 50 MG MG MG myrbetriq myrbetriq No 1{table myrbetriq XR 50mg XR 50mg t} XR 50mg Pantoprazol Pantoprazol No 1{table QD Pantoprazo e Sodium 20 e Sodium 20 t} le Sodium MG MG 20 MG Meloxicam Meloxicam No Meloxicam Vitamin D3 Vitamin D3 No 2{capsu QD Vitamin D3 2000 UNIT 2000 UNIT le} 2000 UNIT Azelastine Azelastine No Azelastine HCl 0.05 % HCl 0.05 % HCl 0.05 % MAGnesium-O MAGnesium-O No MAGnesium- xide 400 xide 400 Oxide 400 (241.3 Mg) (241.3 Mg) (241.3 Mg) MG MG MG amLODIPine amLODIPine No QD amLODIPine Besy-Benaze Besy-Benaze Besy-Benaz pril HCl pril HCl epril HCl 10-40 MG 10-40 MG 10-40 MG Methocarbam Methocarbam No 1{table Methocarba ol 500 MG ol 500 MG t} mol 500 MG Fluticasone Fluticasone No Fluticason Propionate Propionate e 50 MCG/ACT 50 MCG/ACT Propionate 50 MCG/ACT Clobetasol Clobetasol No 1{appli BID Clobetasol Propionate Propionate cation_ Propionate 0.05 % 0.05 % to_affe 0.05 % cted_ar ea} Adipex-P Adipex-P No 1{table QD Adipex-P 37.5 MG 37.5 MG t} 37.5 MG Diclofenac Diclofenac No Diclofenac Sodium 50 Sodium 50 Sodium 50 MG MG MG Fluticasone Fluticasone No Fluticason Propionate Propionate e 50 MCG/ACT 50 MCG/ACT Propionate 50 MCG/ACT Azelastine Azelastine No Azelastine HCl 0.05 % HCl 0.05 % HCl 0.05 % Montelukast Montelukast No 1{table Montelukas Sodium 10 Sodium 10 t} t Sodium MG MG 10 MG myrbetriq myrbetriq No 1{table myrbetriq XR 50mg XR 50mg t} XR 50mg ZyrTEC ZyrTEC No 1{table QD ZyrTEC Allergy 10 Allergy 10 t} Allergy 10 MG MG MG Adipex-P Adipex-P No 1{table QD Adipex-P 37.5 MG 37.5 MG t} 37.5 MG Pantoprazol Pantoprazol No 1{table QD Pantoprazo e Sodium 20 e Sodium 20 t} le Sodium MG MG 20 MG Flonase 50 Flonase 50 No 2{spray QD Flonase 50 MCG/ACT MCG/ACT _in_eac MCG/ACT h_nostr il} Vitamin D3 Vitamin D3 No 2{capsu QD Vitamin D3 2000 UNIT 2000 UNIT le} 2000 UNIT amLODIPine amLODIPine No QD amLODIPine Besy-Benaze Besy-Benaze Besy-Benaz pril HCl pril HCl epril HCl 10-40 MG 10-40 MG 10-40 MG Meloxicam Meloxicam No Meloxicam Vitamin B12 Vitamin B12 No QD Vitamin 2500 2500 B12 2500 Clobetasol Clobetasol No 1{appli BID Clobetasol Propionate Propionate cation_ Propionate 0.05 % 0.05 % to_affe 0.05 % cted_ar ea} MAGnesium-O MAGnesium-O No MAGnesium- xide 400 xide 400 Oxide 400 (241.3 Mg) (241.3 Mg) (241.3 Mg) MG MG MG ZyrTEC ZyrTEC No 1{table QD Allergy 10 Allergy 10 t} MG MG MAGnesium-O MAGnesium-O No xide 400 xide 400 (241.3 Mg) (241.3 Mg) MG MG Flonase 50 Flonase 50 No 2{spray QD MCG/ACT MCG/ACT _in_eac h_nostr il} Vitamin D3 Vitamin D3 No 2{capsu QD 2000 UNIT 2000 UNIT le} amLODIPine amLODIPine No QD Besy-Benaze Besy-Benaze pril HCl pril HCl 10-40 MG 10-40 MG Adipex-P Adipex-P No 1{table QD 37.5 MG 37.5 MG t} Pantoprazol Pantoprazol No 1{table QD e Sodium 20 e Sodium 20 t} MG MG Azelastine Azelastine No HCl 0.05 % HCl 0.05 % Diclofenac Diclofenac No Sodium 50 Sodium 50 MG MG Clobetasol Clobetasol No 1{appli BID Propionate Propionate cation_ 0.05 % 0.05 % to_affe cted_ar ea} Montelukast Montelukast No 1{table Sodium 10 Sodium 10 t} MG MG Meloxicam Meloxicam No myrbetriq myrbetriq No 1{table XR 50mg XR 50mg t} Vitamin B12 Vitamin B12 No QD 2500 2500 Fluticasone Fluticasone No Propionate Propionate 50 MCG/ACT 50 MCG/ACT Montelukast Montelukast No 1{table Montelukas Sodium 10 Sodium 10 t} t Sodium MG MG 10 MG Meloxicam Meloxicam No Meloxicam amLODIPine amLODIPine No QD amLODIPine Besy-Benaze Besy-Benaze Besy-Benaz pril HCl pril HCl epril HCl 10-40 MG 10-40 MG 10-40 MG ZyrTEC ZyrTEC No 1{table QD ZyrTEC Allergy 10 Allergy 10 t} Allergy 10 MG MG MG Fluticasone Fluticasone No Fluticason Propionate Propionate e 50 MCG/ACT 50 MCG/ACT Propionate 50 MCG/ACT Diclofenac Diclofenac No Diclofenac Sodium 50 Sodium 50 Sodium 50 MG MG MG Pantoprazol Pantoprazol No 1{table QD Pantoprazo e Sodium 20 e Sodium 20 t} le Sodium MG MG 20 MG Azelastine Azelastine No Azelastine HCl 0.05 % HCl 0.05 % HCl 0.05 % myrbetriq myrbetriq No 1{table myrbetriq XR 50mg XR 50mg t} XR 50mg Vitamin B12 Vitamin B12 No QD Vitamin 2500 2500 B12 2500 Adipex-P Adipex-P No 1{table QD Adipex-P 37.5 MG 37.5 MG t} 37.5 MG Flonase 50 Flonase 50 No 2{spray QD Flonase 50 MCG/ACT MCG/ACT _in_eac MCG/ACT h_nostr il} Vitamin D3 Vitamin D3 No 2{capsu QD Vitamin D3 2000 UNIT 2000 UNIT le} 2000 UNIT MAGnesium-O MAGnesium-O No MAGnesium- xide 400 xide 400 Oxide 400 (241.3 Mg) (241.3 Mg) (241.3 Mg) MG MG MG Clobetasol Clobetasol No 1{appli BID Clobetasol Propionate Propionate cation_ Propionate 0.05 % 0.05 % to_affe 0.05 % cted_ar ea} amLODIPine amLODIPine No QD amLODIPine Besy-Benaze Besy-Benaze Besy-Benaz pril HCl pril HCl epril HCl 10-40 MG 10-40 MG 10-40 MG Azelastine Azelastine No Azelastine HCl 0.05 % HCl 0.05 % HCl 0.05 % Vitamin D3 Vitamin D3 No 2{capsu QD Vitamin D3 2000 UNIT 2000 UNIT le} 2000 UNIT Montelukast Montelukast No 1{table Montelukas Sodium 10 Sodium 10 t} t Sodium MG MG 10 MG ZyrTEC ZyrTEC No 1{table QD ZyrTEC Allergy 10 Allergy 10 t} Allergy 10 MG MG MG Adipex-P Adipex-P No 1{table QD Adipex-P 37.5 MG 37.5 MG t} 37.5 MG Vitamin B12 Vitamin B12 No QD Vitamin 2500 2500 B12 2500 Flonase 50 Flonase 50 No 2{spray QD Flonase 50 MCG/ACT MCG/ACT _in_eac MCG/ACT h_nostr il} MAGnesium-O MAGnesium-O No MAGnesium- xide 400 xide 400 Oxide 400 (241.3 Mg) (241.3 Mg) (241.3 Mg) MG MG MG Diclofenac Diclofenac No Diclofenac Sodium 50 Sodium 50 Sodium 50 MG MG MG Fluticasone Fluticasone No Fluticason Propionate Propionate e 50 MCG/ACT 50 MCG/ACT Propionate 50 MCG/ACT myrbetriq myrbetriq No 1{table myrbetriq XR 50mg XR 50mg t} XR 50mg Clobetasol Clobetasol No 1{appli BID Clobetasol Propionate Propionate cation_ Propionate 0.05 % 0.05 % to_affe 0.05 % cted_ar ea} Meloxicam Meloxicam No Meloxicam Pantoprazol Pantoprazol No 1{table QD Pantoprazo e Sodium 20 e Sodium 20 t} le Sodium MG MG 20 MG myrbetriq myrbetriq No 1{table myrbetriq XR 50mg XR 50mg t} XR 50mg Clobetasol Clobetasol No 1{appli BID Clobetasol Propionate Propionate cation_ Propionate 0.05 % 0.05 % to_affe 0.05 % cted_ar ea} amLODIPine amLODIPine No QD amLODIPine Besy-Benaze Besy-Benaze Besy-Benaz pril HCl pril HCl epril HCl 10-40 MG 10-40 MG 10-40 MG Vitamin B12 Vitamin B12 No QD Vitamin 2500 2500 B12 2500 Pantoprazol Pantoprazol No 1{table QD Pantoprazo e Sodium 20 e Sodium 20 t} le Sodium MG MG 20 MG Azelastine Azelastine No Azelastine HCl 0.05 % HCl 0.05 % HCl 0.05 % ZyrTEC ZyrTEC No 1{table QD ZyrTEC Allergy 10 Allergy 10 t} Allergy 10 MG MG MG MAGnesium-O MAGnesium-O No MAGnesium- xide 400 xide 400 Oxide 400 (241.3 Mg) (241.3 Mg) (241.3 Mg) MG MG MG Meloxicam Meloxicam No Meloxicam Adipex-P Adipex-P No 1{table QD Adipex-P 37.5 MG 37.5 MG t} 37.5 MG Diclofenac Diclofenac No Diclofenac Sodium 50 Sodium 50 Sodium 50 MG MG MG Montelukast Montelukast No 1{table Montelukas Sodium 10 Sodium 10 t} t Sodium MG MG 10 MG Fluticasone Fluticasone No Fluticason Propionate Propionate e 50 MCG/ACT 50 MCG/ACT Propionate 50 MCG/ACT Vitamin D3 Vitamin D3 No 2{capsu QD Vitamin D3 2000 UNIT 2000 UNIT le} 2000 UNIT Fluticasone Fluticasone No Fluticason Propionate Propionate e 50 MCG/ACT 50 MCG/ACT Propionate 50 MCG/ACT Vitamin D3 Vitamin D3 No 2{capsu QD Vitamin D3 2000 UNIT 2000 UNIT le} 2000 UNIT MAGnesium-O MAGnesium-O No MAGnesium- xide 400 xide 400 Oxide 400 (241.3 Mg) (241.3 Mg) (241.3 Mg) MG MG MG myrbetriq myrbetriq No 1{table myrbetriq XR 50mg XR 50mg t} XR 50mg amLODIPine amLODIPine No QD amLODIPine Besy-Benaze Besy-Benaze Besy-Benaz pril HCl pril HCl epril HCl 10-40 MG 10-40 MG 10-40 MG Adipex-P Adipex-P No 1{table QD Adipex-P 37.5 MG 37.5 MG t} 37.5 MG Vitamin B12 Vitamin B12 No QD Vitamin 2500 2500 B12 2500 ZyrTEC ZyrTEC No 1{table QD ZyrTEC Allergy 10 Allergy 10 t} Allergy 10 MG MG MG Clobetasol Clobetasol No 1{appli BID Clobetasol Propionate Propionate cation_ Propionate 0.05 % 0.05 % to_affe 0.05 % cted_ar ea} Pantoprazol Pantoprazol No 1{table QD Pantoprazo e Sodium 20 e Sodium 20 t} le Sodium MG MG 20 MG Diclofenac Diclofenac No Diclofenac Sodium 50 Sodium 50 Sodium 50 MG MG MG Montelukast Montelukast No 1{table Montelukas Sodium 10 Sodium 10 t} t Sodium MG MG 10 MG Meloxicam Meloxicam No Meloxicam Azelastine Azelastine No Azelastine HCl 0.05 % HCl 0.05 % HCl 0.05 % Vitamin B12 Vitamin B12 No QD Vitamin 2500 2500 B12 2500 ZyrTEC ZyrTEC No 1{table QD ZyrTEC Allergy 10 Allergy 10 t} Allergy 10 MG MG MG Vitamin D3 Vitamin D3 No 2{capsu QD Vitamin D3 2000 UNIT 2000 UNIT le} 2000 UNIT Meloxicam Meloxicam No Meloxicam Fluticasone Fluticasone No Fluticason Propionate Propionate e 50 MCG/ACT 50 MCG/ACT Propionate 50 MCG/ACT Azelastine Azelastine No Azelastine HCl 0.05 % HCl 0.05 % HCl 0.05 % myrbetriq myrbetriq No 1{table myrbetriq XR 50mg XR 50mg t} XR 50mg Adipex-P Adipex-P No 1{table QD Adipex-P 37.5 MG 37.5 MG t} 37.5 MG Diclofenac Diclofenac No Diclofenac Sodium 50 Sodium 50 Sodium 50 MG MG MG amLODIPine amLODIPine No QD amLODIPine Besy-Benaze Besy-Benaze Besy-Benaz pril HCl pril HCl epril HCl 10-40 MG 10-40 MG 10-40 MG Clobetasol Clobetasol No 1{appli BID Clobetasol Propionate Propionate cation_ Propionate 0.05 % 0.05 % to_affe 0.05 % cted_ar ea} Pantoprazol Pantoprazol No 1{table QD Pantoprazo e Sodium 20 e Sodium 20 t} le Sodium MG MG 20 MG MAGnesium-O MAGnesium-O No MAGnesium- xide 400 xide 400 Oxide 400 (241.3 Mg) (241.3 Mg) (241.3 Mg) MG MG MG Montelukast Montelukast No 1{table Montelukas Sodium 10 Sodium 10 t} t Sodium MG MG 10 MG Vitamin B12 Vitamin B12 No QD Vitamin 2500 2500 B12 2500 ZyrTEC ZyrTEC No 1{table QD ZyrTEC Allergy 10 Allergy 10 t} Allergy 10 MG MG MG Vitamin D3 Vitamin D3 No 2{capsu QD Vitamin D3 2000 UNIT 2000 UNIT le} 2000 UNIT Meloxicam Meloxicam No Meloxicam Fluticasone Fluticasone No Fluticason Propionate Propionate e 50 MCG/ACT 50 MCG/ACT Propionate 50 MCG/ACT Azelastine Azelastine No Azelastine HCl 0.05 % HCl 0.05 % HCl 0.05 % myrbetriq myrbetriq No 1{table myrbetriq XR 50mg XR 50mg t} XR 50mg Adipex-P Adipex-P No 1{table QD Adipex-P 37.5 MG 37.5 MG t} 37.5 MG Diclofenac Diclofenac No Diclofenac Sodium 50 Sodium 50 Sodium 50 MG MG MG amLODIPine amLODIPine No QD amLODIPine Besy-Benaze Besy-Benaze Besy-Benaz pril HCl pril HCl epril HCl 10-40 MG 10-40 MG 10-40 MG Clobetasol Clobetasol No 1{appli BID Clobetasol Propionate Propionate cation_ Propionate 0.05 % 0.05 % to_affe 0.05 % cted_ar ea} Pantoprazol Pantoprazol No 1{table QD Pantoprazo e Sodium 20 e Sodium 20 t} le Sodium MG MG 20 MG MAGnesium-O MAGnesium-O No MAGnesium- xide 400 xide 400 Oxide 400 (241.3 Mg) (241.3 Mg) (241.3 Mg) MG MG MG Montelukast Montelukast No 1{table Montelukas Sodium 10 Sodium 10 t} t Sodium MG MG 10 MG ZyrTEC ZyrTEC No 1{table QD ZyrTEC Allergy 10 Allergy 10 t} Allergy 10 MG MG MG Contrave Contrave No 2{table BID Contrave 8-90 MG 8-90 MG ts} 8-90 MG myrbetriq myrbetriq No 1{table myrbetriq XR 50mg XR 50mg t} XR 50mg Azelastine Azelastine No Azelastine HCl 0.05 % HCl 0.05 % HCl 0.05 % Vitamin B12 Vitamin B12 No QD Vitamin 2500 2500 B12 2500 Diclofenac Diclofenac No Diclofenac Sodium 50 Sodium 50 Sodium 50 MG MG MG Pantoprazol Pantoprazol No 1{table QD Pantoprazo e Sodium 20 e Sodium 20 t} le Sodium MG MG 20 MG Meloxicam Meloxicam No Meloxicam Fluticasone Fluticasone No Fluticason Propionate Propionate e 50 MCG/ACT 50 MCG/ACT Propionate 50 MCG/ACT Vitamin D3 Vitamin D3 No 2{capsu QD Vitamin D3 2000 UNIT 2000 UNIT le} 2000 UNIT MAGnesium-O MAGnesium-O No MAGnesium- xide 400 xide 400 Oxide 400 (241.3 Mg) (241.3 Mg) (241.3 Mg) MG MG MG amLODIPine amLODIPine No QD amLODIPine Besy-Benaze Besy-Benaze Besy-Benaz pril HCl pril HCl epril HCl 10-40 MG 10-40 MG 10-40 MG Clobetasol Clobetasol No 1{appli BID Clobetasol Propionate Propionate cation_ Propionate 0.05 % 0.05 % to_affe 0.05 % cted_ar ea} Adipex-P Adipex-P No 1{table QD Adipex-P 37.5 MG 37.5 MG t} 37.5 MG Montelukast Montelukast No 1{table Montelukas Sodium 10 Sodium 10 t} t Sodium MG MG 10 MG ZyrTEC ZyrTEC No 1{table QD ZyrTEC Allergy 10 Allergy 10 t} Allergy 10 MG MG MG Contrave Contrave No 2{table BID Contrave 8-90 MG 8-90 MG ts} 8-90 MG myrbetriq myrbetriq No 1{table myrbetriq XR 50mg XR 50mg t} XR 50mg Azelastine Azelastine No Azelastine HCl 0.05 % HCl 0.05 % HCl 0.05 % Vitamin B12 Vitamin B12 No QD Vitamin 2500 2500 B12 2500 Diclofenac Diclofenac No Diclofenac Sodium 50 Sodium 50 Sodium 50 MG MG MG Pantoprazol Pantoprazol No 1{table QD Pantoprazo e Sodium 20 e Sodium 20 t} le Sodium MG MG 20 MG Meloxicam Meloxicam No Meloxicam Fluticasone Fluticasone No Fluticason Propionate Propionate e 50 MCG/ACT 50 MCG/ACT Propionate 50 MCG/ACT Vitamin D3 Vitamin D3 No 2{capsu QD Vitamin D3 2000 UNIT 2000 UNIT le} 2000 UNIT MAGnesium-O MAGnesium-O No MAGnesium- xide 400 xide 400 Oxide 400 (241.3 Mg) (241.3 Mg) (241.3 Mg) MG MG MG amLODIPine amLODIPine No QD amLODIPine Besy-Benaze Besy-Benaze Besy-Benaz pril HCl pril HCl epril HCl 10-40 MG 10-40 MG 10-40 MG Clobetasol Clobetasol No 1{appli BID Clobetasol Propionate Propionate cation_ Propionate 0.05 % 0.05 % to_affe 0.05 % cted_ar ea} Adipex-P Adipex-P No 1{table QD Adipex-P 37.5 MG 37.5 MG t} 37.5 MG Montelukast Montelukast No 1{table Montelukas Sodium 10 Sodium 10 t} t Sodium MG MG 10 MG ZyrTEC ZyrTEC No 1{table QD ZyrTEC Allergy 10 Allergy 10 t} Allergy 10 MG MG MG Contrave Contrave No 2{table BID Contrave 8-90 MG 8-90 MG ts} 8-90 MG myrbetriq myrbetriq No 1{table myrbetriq XR 50mg XR 50mg t} XR 50mg Azelastine Azelastine No Azelastine HCl 0.05 % HCl 0.05 % HCl 0.05 % Vitamin B12 Vitamin B12 No QD Vitamin 2500 2500 B12 2500 Diclofenac Diclofenac No Diclofenac Sodium 50 Sodium 50 Sodium 50 MG MG MG Pantoprazol Pantoprazol No 1{table QD Pantoprazo e Sodium 20 e Sodium 20 t} le Sodium MG MG 20 MG Meloxicam Meloxicam No Meloxicam Fluticasone Fluticasone No Fluticason Propionate Propionate e 50 MCG/ACT 50 MCG/ACT Propionate 50 MCG/ACT Vitamin D3 Vitamin D3 No 2{capsu QD Vitamin D3 2000 UNIT 2000 UNIT le} 2000 UNIT MAGnesium-O MAGnesium-O No MAGnesium- xide 400 xide 400 Oxide 400 (241.3 Mg) (241.3 Mg) (241.3 Mg) MG MG MG amLODIPine amLODIPine No QD amLODIPine Besy-Benaze Besy-Benaze Besy-Benaz pril HCl pril HCl epril HCl 10-40 MG 10-40 MG 10-40 MG Clobetasol Clobetasol No 1{appli BID Clobetasol Propionate Propionate cation_ Propionate 0.05 % 0.05 % to_affe 0.05 % cted_ar ea} Adipex-P Adipex-P No 1{table QD Adipex-P 37.5 MG 37.5 MG t} 37.5 MG Montelukast Montelukast No 1{table Montelukas Sodium 10 Sodium 10 t} t Sodium MG MG 10 MG ZyrTEC ZyrTEC No 1{table QD ZyrTEC Allergy 10 Allergy 10 t} Allergy 10 MG MG MG Contrave Contrave No 2{table BID Contrave 8-90 MG 8-90 MG ts} 8-90 MG myrbetriq myrbetriq No 1{table myrbetriq XR 50mg XR 50mg t} XR 50mg Azelastine Azelastine No Azelastine HCl 0.05 % HCl 0.05 % HCl 0.05 % Vitamin B12 Vitamin B12 No QD Vitamin 2500 2500 B12 2500 Diclofenac Diclofenac No Diclofenac Sodium 50 Sodium 50 Sodium 50 MG MG MG Pantoprazol Pantoprazol No 1{table QD Pantoprazo e Sodium 20 e Sodium 20 t} le Sodium MG MG 20 MG Meloxicam Meloxicam No Meloxicam Fluticasone Fluticasone No Fluticason Propionate Propionate e 50 MCG/ACT 50 MCG/ACT Propionate 50 MCG/ACT Vitamin D3 Vitamin D3 No 2{capsu QD Vitamin D3 2000 UNIT 2000 UNIT le} 2000 UNIT MAGnesium-O MAGnesium-O No MAGnesium- xide 400 xide 400 Oxide 400 (241.3 Mg) (241.3 Mg) (241.3 Mg) MG MG MG amLODIPine amLODIPine No QD amLODIPine Besy-Benaze Besy-Benaze Besy-Benaz pril HCl pril HCl epril HCl 10-40 MG 10-40 MG 10-40 MG Clobetasol Clobetasol No 1{appli BID Clobetasol Propionate Propionate cation_ Propionate 0.05 % 0.05 % to_affe 0.05 % cted_ar ea} Adipex-P Adipex-P No 1{table QD Adipex-P 37.5 MG 37.5 MG t} 37.5 MG Montelukast Montelukast No 1{table Montelukas Sodium 10 Sodium 10 t} t Sodium MG MG 10 MG Contrave Contrave No 2{table BID Contrave 8-90 MG 8-90 MG ts} 8-90 MG Montelukast Montelukast No 1{table Montelukas Sodium 10 Sodium 10 t} t Sodium MG MG 10 MG Vitamin B12 Vitamin B12 No QD Vitamin 2500 2500 B12 2500 ZyrTEC ZyrTEC No 1{table QD ZyrTEC Allergy 10 Allergy 10 t} Allergy 10 MG MG MG Diclofenac Diclofenac No Diclofenac Sodium 50 Sodium 50 Sodium 50 MG MG MG myrbetriq myrbetriq No 1{table myrbetriq XR 50mg XR 50mg t} XR 50mg Pantoprazol Pantoprazol No 1{table QD Pantoprazo e Sodium 20 e Sodium 20 t} le Sodium MG MG 20 MG Meloxicam Meloxicam No Meloxicam Vitamin D3 Vitamin D3 No 2{capsu QD Vitamin D3 2000 UNIT 2000 UNIT le} 2000 UNIT Azelastine Azelastine No Azelastine HCl 0.05 % HCl 0.05 % HCl 0.05 % MAGnesium-O MAGnesium-O No MAGnesium- xide 400 xide 400 Oxide 400 (241.3 Mg) (241.3 Mg) (241.3 Mg) MG MG MG amLODIPine amLODIPine No QD amLODIPine Besy-Benaze Besy-Benaze Besy-Benaz pril HCl pril HCl epril HCl 10-40 MG 10-40 MG 10-40 MG Methocarbam Methocarbam No 1{table Methocarba ol 500 MG ol 500 MG t} mol 500 MG Fluticasone Fluticasone No Fluticason Propionate Propionate e 50 MCG/ACT 50 MCG/ACT Propionate 50 MCG/ACT Clobetasol Clobetasol No 1{appli BID Clobetasol Propionate Propionate cation_ Propionate 0.05 % 0.05 % to_affe 0.05 % cted_ar ea} Adipex-P Adipex-P No 1{table QD Adipex-P 37.5 MG 37.5 MG t} 37.5 MG myrbetriq myrbetriq No 1{table myrbetriq XR 50mg XR 50mg t} XR 50mg Methocarbam Methocarbam No 1{table Methocarba ol 500 MG ol 500 MG t} mol 500 MG amLODIPine amLODIPine No QD amLODIPine Besy-Benaze Besy-Benaze Besy-Benaz pril HCl pril HCl epril HCl 10-40 MG 10-40 MG 10-40 MG Vitamin B12 Vitamin B12 No QD Vitamin 2500 2500 B12 2500 Montelukast Montelukast No 1{table Montelukas Sodium 10 Sodium 10 t} t Sodium MG MG 10 MG Vitamin D3 Vitamin D3 No 2{capsu QD Vitamin D3 2000 UNIT 2000 UNIT le} 2000 UNIT Clobetasol Clobetasol No 1{appli BID Clobetasol Propionate Propionate cation_ Propionate 0.05 % 0.05 % to_affe 0.05 % cted_ar ea} Adipex-P Adipex-P No 1{table QD Adipex-P 37.5 MG 37.5 MG t} 37.5 MG Meloxicam Meloxicam No Meloxicam MAGnesium-O MAGnesium-O No MAGnesium- xide 400 xide 400 Oxide 400 (241.3 Mg) (241.3 Mg) (241.3 Mg) MG MG MG Azelastine Azelastine No Azelastine HCl 0.05 % HCl 0.05 % HCl 0.05 % Diclofenac Diclofenac No Diclofenac Sodium 50 Sodium 50 Sodium 50 MG MG MG Fluticasone Fluticasone No Fluticason Propionate Propionate e 50 MCG/ACT 50 MCG/ACT Propionate 50 MCG/ACT Pantoprazol Pantoprazol No 1{table QD Pantoprazo e Sodium 20 e Sodium 20 t} le Sodium MG MG 20 MG ZyrTEC ZyrTEC No 1{table QD ZyrTEC Allergy 10 Allergy 10 t} Allergy 10 MG MG MG Contrave Contrave No 2{table BID Contrave 8-90 MG 8-90 MG ts} 8-90 MG myrbetriq myrbetriq No 1{table myrbetriq XR 50mg XR 50mg t} XR 50mg Methocarbam Methocarbam No 1{table Methocarba ol 500 MG ol 500 MG t} mol 500 MG amLODIPine amLODIPine No QD amLODIPine Besy-Benaze Besy-Benaze Besy-Benaz pril HCl pril HCl epril HCl 10-40 MG 10-40 MG 10-40 MG Vitamin B12 Vitamin B12 No QD Vitamin 2500 2500 B12 2500 Montelukast Montelukast No 1{table Montelukas Sodium 10 Sodium 10 t} t Sodium MG MG 10 MG Vitamin D3 Vitamin D3 No 2{capsu QD Vitamin D3 2000 UNIT 2000 UNIT le} 2000 UNIT Clobetasol Clobetasol No 1{appli BID Clobetasol Propionate Propionate cation_ Propionate 0.05 % 0.05 % to_affe 0.05 % cted_ar ea} Adipex-P Adipex-P No 1{table QD Adipex-P 37.5 MG 37.5 MG t} 37.5 MG Meloxicam Meloxicam No Meloxicam MAGnesium-O MAGnesium-O No MAGnesium- xide 400 xide 400 Oxide 400 (241.3 Mg) (241.3 Mg) (241.3 Mg) MG MG MG Azelastine Azelastine No Azelastine HCl 0.05 % HCl 0.05 % HCl 0.05 % Diclofenac Diclofenac No Diclofenac Sodium 50 Sodium 50 Sodium 50 MG MG MG Fluticasone Fluticasone No Fluticason Propionate Propionate e 50 MCG/ACT 50 MCG/ACT Propionate 50 MCG/ACT Pantoprazol Pantoprazol No 1{table QD Pantoprazo e Sodium 20 e Sodium 20 t} le Sodium MG MG 20 MG ZyrTEC ZyrTEC No 1{table QD ZyrTEC Allergy 10 Allergy 10 t} Allergy 10 MG MG MG Contrave Contrave No 2{table BID Contrave 8-90 MG 8-90 MG ts} 8-90 MG myrbetriq myrbetriq No 1{table myrbetriq XR 50mg XR 50mg t} XR 50mg Methocarbam Methocarbam No 1{table Methocarba ol 500 MG ol 500 MG t} mol 500 MG amLODIPine amLODIPine No QD amLODIPine Besy-Benaze Besy-Benaze Besy-Benaz pril HCl pril HCl epril HCl 10-40 MG 10-40 MG 10-40 MG Vitamin B12 Vitamin B12 No QD Vitamin 2500 2500 B12 2500 Montelukast Montelukast No 1{table Montelukas Sodium 10 Sodium 10 t} t Sodium MG MG 10 MG Vitamin D3 Vitamin D3 No 2{capsu QD Vitamin D3 2000 UNIT 2000 UNIT le} 2000 UNIT Clobetasol Clobetasol No 1{appli BID Clobetasol Propionate Propionate cation_ Propionate 0.05 % 0.05 % to_affe 0.05 % cted_ar ea} Adipex-P Adipex-P No 1{table QD Adipex-P 37.5 MG 37.5 MG t} 37.5 MG Meloxicam Meloxicam No Meloxicam MAGnesium-O MAGnesium-O No MAGnesium- xide 400 xide 400 Oxide 400 (241.3 Mg) (241.3 Mg) (241.3 Mg) MG MG MG Azelastine Azelastine No Azelastine HCl 0.05 % HCl 0.05 % HCl 0.05 % Diclofenac Diclofenac No Diclofenac Sodium 50 Sodium 50 Sodium 50 MG MG MG Fluticasone Fluticasone No Fluticason Propionate Propionate e 50 MCG/ACT 50 MCG/ACT Propionate 50 MCG/ACT Pantoprazol Pantoprazol No 1{table QD Pantoprazo e Sodium 20 e Sodium 20 t} le Sodium MG MG 20 MG ZyrTEC ZyrTEC No 1{table QD ZyrTEC Allergy 10 Allergy 10 t} Allergy 10 MG MG MG Contrave Contrave No 2{table BID Contrave 8-90 MG 8-90 MG ts} 8-90 MG Contrave Contrave No 2{table BID Contrave 8-90 MG 8-90 MG ts} 8-90 MG Montelukast Montelukast No 1{table Montelukas Sodium 10 Sodium 10 t} t Sodium MG MG 10 MG Immunizations Ordered Immunization Filled Immunization Date Status Commen ts Source Name Name PNEUMAVAX 23 PNEUMAVAX 23 2020-02-17 Completed [facility]00 [facility] PNEUMAVAX 23 PNEUMAVAX 23 2020-02-17 Completed [facility]00 [facility] PNEUMAVAX 23 PNEUMAVAX 23 2020-02-17 Completed [facility] 08:[facility]:00 [facility] PNEUMAVAX 23 PNEUMAVAX 23 2020-02-17 Completed [facility] 08[facility]47:00 [facility] PNEUMAVAX 23 PNEUMAVAX 23 2020-02-17 Completed [facility] 08:47:00 [facility] PNEUMAVAX 23 PNEUMAVAX 23 2020-02-17 Completed [facility] 08:47:00 [facility] PNEUMAVAX 23 PNEUMAVAX 23 2020-02-17 Completed [facility] 08[facility]47:00 - [facility] PNEUMAVAX 23 PNEUMAVAX 23 2020-02-17 Completed [facility] 08:47:00 - [facility] PNEUMAVAX 23 PNEUMAVAX 23 2020-02-17 Completed [facility] 08:47:00 - [facility] PNEUMAVAX 23 PNEUMAVAX 23 2020-02-17 Completed [facility] 08:47:00 - [facility] PNEUMAVAX 23 PNEUMAVAX 23 2020-02-17 Completed [facility] 08:47:00 - [facility] PNEUMAVAX 23 PNEUMAVAX 23 2020-02-17 Completed [facility] 08:47:00 - [facility] PNEUMAVAX 23 PNEUMAVAX 23 2020-02-17 Completed [facility] 08:47:00 - [facility] PNEUMAVAX 23 PNEUMAVAX 23 2020-02-17 Completed [facility] 08:47:00 - [facility] PNEUMAVAX 23 PNEUMAVAX 23 2020-02-17 Completed [facility] 08:47:00 - [facility] PNEUMAVAX 23 PNEUMAVAX 23 2020-02-17 Completed [facility] 08:47:00 - [facility] PNEUMAVAX 23 PNEUMAVAX 23 2020-02-17 Completed [facility] 08:47:00 - [facility] PNEUMAVAX 23 PNEUMAVAX 23 2020-02-17 Completed [facility] 00:00:00 - [facility] Boostrix (Tdap) Boostrix (Tdap) 2018-09-21 Completed [facility] 09:[facility]:00 [facility] Boostrix (Tdap) Boostrix (Tdap) 2018-09-21 Completed [facility] 09:57:00 [facility] Boost[employer] (Tdap) Boostrix (Tdap) 2018-09-21 Completed [facility] 09:57:00 [facility] Boost[employer] (Tdap) Boostrix (Tdap) 2018-09-21 Completed [facility] 09:57:00 [facility] Boost[employer] (Tdap) Boostrix (Tdap) 2018-09-21 Completed [facility] 09:57:00 [facility] Boostrix (Tdap) Boostrix (Tdap) 2018-09-21 Completed [facility] 09:57:00 [facility] Boostrix (Tdap) Boostrix (Tdap) 2018-09-21 Completed [facility] 09:57:00 [facility] Boost[employer] (Tdap) Boostrix (Tdap) 2018-09-21 Completed [facility] 09:57:00 [facility] Boost[employer] (Tdap) Boostrix (Tdap) 2018-09-21 Completed [facility] 09:57:00 [facility] Boost[employer] (Tdap) Boostrix (Tdap) 2018-09-21 Completed [facility] 09:57:00 [facility] Boost[employer] (Tdap) Boostrix (Tdap) 2018-09-21 Completed [facility] 09:57:00 [facility] Boost[employer] (Tdap) Boostrix (Tdap) 2018-09-21 Completed [facility] 09:57:00 [facility] Boost[employer] (Tdap) Boostrix (Tdap) 2018-09-21 Completed [facility] 09:57:00 [facility] Boost[employer] (Tdap) Boostrix (Tdap) 2018-09-21 Completed [facility] 09:57:00 [facility] Boost[employer] (Tdap) Boostrix (Tdap) 2018-09-21 Completed [facility] 09:57:00 [facility] Boost[employer] (Tdap) Boostrix (Tdap) 2018-09-21 Completed [facility] 09:57:00 [facility] Boostrix (Tdap) Boostrix (Tdap) 2018-09-21 Completed [facility] 09:57:00 [facility] TDAP- Boostrix TDAP- Boostrix 2018-09-21 Completed [facility]00 [facility] Vital Signs Vital Name Observation Time Observation Value Comments Source height 2022-02-25 10:20:00 65.00 [in_i] [facility] - [facility] weight 2022-02-25 10:20:00 212.4 [lb_av] Common [facility] temperature 2022-02-25 10:20:00 97.6 [degF] [facility] bmi 2022-02-25 10:20:00 35.34 kg/m2 [facility] oximetry 2022-02-25 10:20:00 99 % [facility] respiratory rate 2022-02-25 10:20:00 16 /min Comm on [facility] blood pressure 2022-02-25 10:20:00 138 mm[Hg] Common [facility] - systolic [facility] blood pressure 2022-02-25 10:20:00 68 mm[Hg] Common [facility] - diastolic [facility] height 2022-02-14 09:30:00 65.00 [in_i] Common [facility] weight 2022-02-14 09:30:00 209 [lb_av] [facility] temperature 2022-02-14 09:30:00 97.4 [degF] [facility] bmi 2022-02-14 09:30:00 34.78 kg/m2 [facility] blood pressure 2022-02-14 09:30:00 126 mm[Hg] Common [facility] - systolic [facility] blood pressure 2022-02-14 09:30:00 84 mm[Hg] [facility] - diastolic [facility] height 2021-12-14 15:00:00 65.00 [in_i] Common [facility] weight 2021-12-14 15:00:00 200 [lb_av] [facility] temperature 2021-12-14 15:00:00 98.3 [degF] [facility] bmi 2021-12-14 15:00:00 33.28 kg/m2 [facility] blood pressure 2021-12-14 15:00:00 132 mm[Hg] Common [facility] - systolic [facility] blood pressure 2021-12-14 15:00:00 84 mm[Hg] [facility] - diastolic [facility] height 2021-12-06 14:20:00 65.00 [in_i] Common [facility] weight 2021-12-06 14:20:00 210.0 [lb_av] Common [facility] temperature 2021-12-06 14:20:00 97.6 [degF] Common [facility] p[facility] bmi 2021-12-06 14:20:00 34.94 kg/m2 Common [facility] oximetry 2021-12-06 14:20:00 100 % Common [facility] respiratory rate 2021-12-06 14:20:00 16 /min Comm on [facility] blood pressure 2021-12-06 14:20:00 136 mm[Hg] [facility] - systolic [facility] blood pressure 2021-12-06 14:20:00 76 mm[Hg] [facility] - diastolic [facility] height 2021-08-27 08:40:00 65.00 [in_i] Common [facility] weight 2021-08-27 08:40:00 203.0 [lb_av] Common [facility] temperature 2021-08-27 08:40:00 97.6 [degF] Common [facility] p[facility] bmi 2021-08-27 08:40:00 33.78 kg/m2 Common [facility] oximetry 2021-08-27 08:40:00 99 % Common [facility] respiratory rate 2021-08-27 08:40:00 16 /min Comm on [facility] blood pressure 2021-08-27 08:40:00 131 mm[Hg] [facility] - systolic [facility] blood pressure 2021-08-27 08:40:00 63 mm[Hg] Common [facility] Procedures This patient has no known procedures. Encounters Start End Encounter Admission Attending Care Care Encounter Source Date/Time Date/Time Type Type Clinicians Facility Department ID 2022-04-21 Outpatient Abreu, Na STLMLC STLMLC [id number] Common 11:43:00 [facility] 2022-02-23 Outpatient Abreu, Na STLMLC STLMLC [id number] 2 Common 10:24:00 [facility] 2022-02-11 Outpatient Abreu, Na STLMLC STLMLC [id number] 2 Common 10:44:00 [facility] 2021-12-20 Outpatient Abreu, Na STLMLC STLMLC [id number] 2 Common 07:28:00 [facility] 2021-12-14 Outpatient Abreu, Na STLMLC STLMLC [id number] 2 Common 08:12:00 [facility] 2021-12-02 Outpatient Abreu, Na STLMLC STLMLC [id number] 2 Common 09:22:03 [facility] 2021-08-27 Outpatient Abreu, Na STLMLC STLMLC [id number] 2 Common 08:40:00 [facility] 2021-08-11 Outpatient Abreu, Na STLMLC STLMLC [id number] 2 Common 14:10:31 [id number] [facility] 2021-08-11 Outpatient Abreu, Na STLMLC STLMLC [id number] 2 Common 13:22:16 [id number] [facility] 2021-08-11 Outpatient Abreu, Na STLMLC STLMLC [id number] 2 Common 12:47:08 [id number] [facility] 2021-08-11 Outpatient Abreu, Na STLMLC STLMLC [id number] 2 Common 12:44:17 [id number] [facility] 2021-08-11 Outpatient Abreu, Na STLMLC STLMLC [id number] 2 Common 12:21:20 [id number] [facility] 2021-08-11 Outpatient Abreu, Na STLMLC STLMLC [id number] 2 Common 12:20:40 [id number] [facility] 2021-08-11 Outpatient Abreu, Na STLMLC STLMLC [id number] 2 Common 12:04:04 [id number] [facility] 2021-08-11 Outpatient Abreu, Na STLMLC STLMLC [id number] 2 Common 11:44:13 [id number] [facility] 2021-08-11 Outpatient Abreu, Na STLMLC STLMLC [id number] 2 Common 11:33:47 [id number] [facility] 2021-08-11 Outpatient Abreu, Na STLMLC STLMLC [id number] 2 Common 11:29:32 [id number] [facility] 2021-08-11 Outpatient Abreu, Na STLMLC STLMLC [id number] 2 Common 11:29:14 [id number] [facility] 2021-08-11 Outpatient Abreu, Na STLMLC STLMLC [id number] 2 Common 11:07:28 [id number] [facility] 2021-08-11 Outpatient Abreu, Na STLMLC STLMLC [id number] 2 Common 10:57:49 [id number] [facility] 2022-04-26 2022-04-26 (TEL) STLMLC STLMLC [id number] Co mmon 00:00:00 00:00:00 [facility] 2022-04-26 2022-04-26 (TEL) STLMLC STLMLC [id number] Co mmon 00:00:00 00:00:00 [facility] 2022-04-14 2022-04-14 (TEL) STLMLC STLMLC [id number] Co mmon 00:00:00 00:00:00 [facility] 2022-03-16 2022-03-16 (TEL) STLMLC STLMLC [id number] Co mmon 00:00:00 00:00:00 [facility] 2022-03-09 2022-03-09 (TEL) STLMLC STLMLC [id number] Co mmon 00:00:00 00:00:00 [facility] 2022-02-26 2022-02-26 (TEL) STLMLC STLMLC [id number] Co mmon 00:00:00 00:00:00 [facility] 2022-02-25 2022-02-25 PREV VISIT STLMLC STLMLC [id number] Common 00:00:00 00:00:00 EST AGE 66 Spi rit & OVER [facility] 2022-02-21 2022-02-21 (TEL) STLMLC STLMLC [id number] Co mmon 00:00:00 00:00:00 [facility] 2022-02-21 2022-02-21 (TEL) STLMLC STLMLC [id number] Co mmon 00:00:00 00:00:00 [facility] 2022-02-14 2022-02-14 OFFICE STLMLC STLMLC [id number] Co mmon 00:00:00 00:00:00 [facility] ESTAB PT - CHI LEVEL 4 [facility] 2021-12-14 2021-12-14 OFFICE STLMLC STLMLC [id number] Co mmon 00:00:00 00:00:00 [facility] ESTAB PT - CHI LEVEL 4 [facility] 2021-12-06 2021-12-06 OFFICE STLMLC STLMLC [id number] Co mmon 00:00:00 00:00:00 [facility] ESTAB PT - CHI LEVEL 4 [facility] 2021-08-27 2021-08-27 OFFICE STLMLC STLMLC [id number] Co mmon 00:00:00 00:00:00 [facility] ESTAB PT - CHI LEVEL 4 [facility] 2021-07-30 2021-07-30 OL DIG E/M STLMLC STLMLC [id number] Common 00:00:00 00:00:00 SVC 11-[address] [facility] 2021-07-29 2021-07-29 (TEL) STLMLC STLMLC [id number] Co mmon 00:00:00 00:00:00 [facility] 2021-07-13 2021-07-13 (TEL) STLMLC STLMLC [id number] Co mmon 00:00:00 00:00:00 [facility] 2021-01-15 2021-01-15 Outpatient STLMLC STLMLC [id number] Common 00:00:00 00:00:00 [facility] 2020-10-24 2020-10-24 Outpatient STLMLC STLMLC [id number] Common 00:00:00 00:00:00 [facility] 2020-10-23 2020-10-23 Outpatient STLMLC STLMLC [id number] Common 00:00:00 00:00:00 [facility] 2020-10-16 2020-10-16 Outpatient STLMLC STLMLC [id number] Common 00:00:00 00:00:00 [facility] 2020-08-27 2020-08-27 Outpatient STLMLC STLMLC [id number] Common 00:00:00 00:00:00 [facility] 2020-08-15 2020-08-15 Outpatient STLMLC STLMLC [id number] Common 00:00:00 00:00:00 [facility] 2020-08-11 2020-08-11 Outpatient STLMLC STLMLC [id number] Common 00:00:00 00:00:00 [facility] 2020-07-31 2020-07-31 Outpatient STLMLC STLMLC [id number] Common 00:00:00 00:00:00 [facility] 2020-05-29 2020-05-29 Outpatient STLMLC STLMLC [id number] Common 00:00:00 00:00:00 [facility] 2020-03-27 2020-03-27 [facility] [id number] Common 08:00:00 08:00:00 [employer] [facility] 2020-02-17 2020-02-17 [facility] [id number] Common 08:00:00 08:00:[address] [facility] 2020-01-20 2020-01-20 [facility] [id number] Common 08:20:00 08:20:[address] [facility] 2019-12-20 2019-12-20 [facility] [id number] Common 13:20:00 13:20:[address] [facility] 2019-12-16 2019-12-16 [facility] [id number] Common 22:27:00 22:27:[address] [facility] 2019-11-25 2019-11-25 [facility] [id number] Common 10:15:00 10:15:00 [facility] 2019-11-04 2019-11-04 [facility] [id number] Common 10:06:00 10:06:00 [facility] 2019-08-08 2019-08-08 [facility] [id number] Common 15:40:00 15:40:[address] [facility] 2019-07-19 2019-07-19 [facility] [id number] Common 10:00:00 10:00:[address] [facility] 2019-07-08 2019-07-08 [facility] [id number] Common 13:34:00 13:34:[address] [facility] 2019-06-21 2019-06-21 [facility] [id number] Common 11:00:00 11:00:[address] [facility] 2019-06-10 2019-06-10 [facility] [id number] Common 09:30:00 09:30:00 [facility] 2019-06-07 2019-06-07 [facility] [id number] Common 08:40:00 08:40:[address] [facility] 2019-06-07 2019-06-07 [facility] [id number] Common 08:23:00 08:23:[address] [facility] 2019-05-19 2019-05-19 [facility] [id number] Common 00:54:00 00:54:[address] [facility] 2019-05-13 2019-05-13 [facility] [id number] Common 09:30:00 09:30:00 [facility] 2019-05-07 2019-05-07 [facility] [id number] Common 15:33:00 15:33:[address] [facility] 2019-04-18 2019-04-18 [facility] [id number] Common 08:19:00 08:19:[address] [facility] 2019-03-29 2019-03-29 [facility] [id number] Common 08:20:00 08:20:[address] [facility] 2019-03-24 2019-03-24 [facility] [id number] Common 12:24:00 12:24:[address] [facility] 2019-03-19 2019-03-19 [facility] [id number] Common 16:28:00 16:28:[address] [facility] 2018-12-25 2018-12-25 [facility] [id number] Common 13:14:00 13:14:[address] [facility] 2018-12-21 2018-12-21 [facility] [id number] Common 08:20:00 08:20:[address] [facility] 2018-11-02 2018-11-02 [facility] [id number] Common 15:49:00 15:49:[address] [facility] 2018-10-22 2018-10-22 [facility] [id number] Common 15:20:00 15:20:[address] [facility] 2018-09-21 2018-09-21 [facility] [id number] Common 09:00:00 09:00:[address] [facility] 2018-06-21 2018-06-21 [facility] [id number] Common 09:00:00 09:00:[address] [facility] 2018-04-11 2018-04-11 [facility] [id number] Common 16:35:00 16:35:[address] [facility] 2018-04-11 2018-04-11 [facility] [id number] Common 08:24:00 08:24:[address] [facility] 2018-03-23 2018-03-23 [facility] [id number] Common 09:15:00 09:15:[address] [facility] 2018-01-08 2018-01-08 [facility] [id number] Common 15:59:00 15:59:[address] [facility] 2018-01-01 2018-01-01 [facility] [id number] Common 08:45:00 08:45:[address] [facility] 2017-10-06 2017-10-06 Outpatient [facility] [id number] Common 09:54:00 09:54:[address] [facility] 2017-10-02 2017-10-02 Outpatient [facility] [id number] Common 08:15:00 08:15:[address] [facility] Results This patient has no known results.
[2022-05-04 15:21] VITALS: BMI 34.4
[2022-05-04] MEDS: CEFAZOLIN SODIUM 2 GM in NA CHLORIDE 0.9% 100 ML IVPB SCH (17:37)
[2022-05-04] MEDS: HYDROCODONE/APAP 7.5/325 MG TAB PO PRN (20:46)
--- NOTE | 2022-05-04 22:23 | P.OP ---
Preoperative diagnosis: right knee osteoarthritis Postoperative diagnosis: same Primary procedure: right total knee arthroplasty Anesthesia: general LMA Estimated blood loss: 30 cc Specimen: right knee bone remnants Findings: see dictation Operative Technique: Indication For Procedure: Montse is a 72 year-old female presenting to my clinic with signs, symptoms and x-ray findings consistent with severe right knee osteoarthritis. I discussed with the patient at length risks and benefits associated with operative and nonoperative treatment. She had failed conservative treatment measures and had significant difficulties with ADLs secondary to his pain. We discussed operative treatment and elected to proceed with right total knee arthroplasty. She expressed understanding and elected to proceed with operative treatment. Description Of Procedure: After informed consent was obtained, the patient was identified in the preoperative holding area. The right lower extremity was marked. The patient was then taken to the PACU where she underwent a right lower extremity adductor canal block performed by Anesthesia. she was then taken to the operating room, transferred to the operating table in supine fashion, and placed under general anesthesia. The right lower extremity was then prepped and draped in usual sterile fashion. A time-out was initiated. The correct patient and procedure were confirmed and identified. The patient did receive her preoperative prophylactic antibiotics. The right lower extremity was then exsanguinated and tourniquet was inflated to 300 mmHg. Approximately 15 cm longitudinal incision was made centered over the anterior aspect of the right knee. Dissection was then taken to the extensor mechanism and a medial parapatellar arthrotomy was performed. the patella was everted and dislocated laterally and the knee was flexed in the fat pad. Medial lateral meniscus and ACL were all excised exposing the distal femur. Excess hypertrophic synovium was also excised within the suprapatellar pouch. The patient had an MRI of her right knee preoperatively for surgical planning and creation of cutting blocks. The cutting block was then placed over the distal femur and pins were then placed. The distal femoral cutting block was then placed over the pins. Anatoliy wing was then used to ensure proper depth cut and the distal femur was then cut. The chamfer cutting guide was then placed over the distal end of the femur. Anterior, posterior cuts as well as anterior and posterior chamfer cuts were then made again confirming proper depth of the cut using an Anatoliy wing. Excess bone remnants were then sent to pathology for further evaluation. Next, attention was taken to the proximal tibia. A tibial jig and tibial cutting block was then placed on proximal aspect of the right tibia and locked into position. Pins were then placed and alignment guide was then used to confirm proper alignment of the cut and then coronal and sagittal planes. Once this was confirmed, the cutting jig was placed over the pins and the proximal tibia was cut. Sizing trays were then selected and size 10 mm spacer was used and there was good overall balance in flexion and extension. Next, the trial implants were then placed using the size 7 standard CR femur and a size E tibia with an 10 mm CR poly. There was overall good range of motion and good stability. The trial implants were then removed. This improved the overall stability of the knee and components. The wound was then irrigated thoroughly with normal saline and the knee was then injected with 30 cc of 0.5% Marcaine both in the posterior capsule and mediallateral gutters as well as quadriceps tendon and periosteum. The tibia was then punched. The femur was d rilled. The cement was then prepared on the back table. Cement was then placed first on the tibial surface followed by size E tibia. Excess cement was removed with Letcher elevators. Size 7 standard CR femur was then placed on the distal femur after cement was placed on the distal femur. Excess cement was then removed and a size 10 mm CR trial poly was then placed. The knee was sheld in extension as the cement hardened. Undersurface of the patella was prepared debriding osteophytes using rongeurs as well as osteophytes.. Cement was placed on the undersurface of the patella after it was cut and a size 29 patella was placed. Once the cement was hardened, the knee was ranged, there was good overall stability both in flexion, extension and as well as stability with varus and valgus stresses. Trial poly was then removed and a size 10 mm CR poly was then placed and locked into position. The knee was then ranged again. There was good overall range of motion both for flexion and extension with good stability. The wound was then irrigated again thoroughly with normal saline using pulse lavage. Tourniquet was let down. Hemostasis was achieved using Bovie electrocautery. Extensor mechanism was then approximated using a #1 Vicryl both in interrupted and running fashion. The fascia was then approximated using 0 Vicryl. Subcutaneous tissue was approximated with a 2-0 Vicryl. Skin was approximated using gabrielle. Sterile dressings were applied. The patient was awakened and transferred back in stable condition Complications: None Implants: Biomet Robert 7 CR femur, E tibia w/ stem, 10 CR poly, 29 patella Fluids & blood products: per anesthesia record; TT: 76 mins @ 300 mmHg Transferred to: Recovery Room Condition: Good
[2022-05-05] MEDS: CEFAZOLIN SODIUM 2 GM in NA CHLORIDE 0.9% 100 ML IVPB SCH ×2 (00:16→10:16)
[2022-05-05 03:55] LABS: Hematocrit 32.2 % (36.0-45.0)
[2022-05-05 04:57] VITALS: O2SAT 96
[2022-05-05] MEDS ORDERED: ENOXAPARIN 30 MG/0.3 ML SQ SCH (06:00)
[2022-05-05] MEDS ORDERED: CELECOXIB 100 MG CAPSULE PO SCH (09:00)
[2022-05-05] MEDS ORDERED: HOME MED 1 EA UNK (Tolterodine Tartrate [Tolterodine Tartrate] 2 MG Tablet) PO SCH (09:00)
[2022-05-05] MEDS ORDERED: VITAMIN D 5,000 UNIT CAP PO SCH (09:00)
[2022-05-05] MEDS ORDERED: BENAZEPRIL 20 MG TAB PO SCH (09:00)
[2022-05-05] MEDS ORDERED: PANTOPRAZOLE 40MG TABLET PO SCH (09:00)
[2022-05-05] MEDS ORDERED: AMLODIPINE 10 MG TAB PO SCH (09:00)
[2022-05-05] MEDS: HYDROCODONE/APAP 7.5/325 MG TAB PO PRN (10:15)
[2022-05-05 12:53] VITALS: BP 114/56; TEMP 99.1
== END 2022-05-05 15:33 | disposition home or self-care (01) ==
LOC: OR 05:57 → 4TH 11:04
PROVIDERS: ADMIT Orthopaedic Surgery Sports Medicine; ATTEND Orthopaedic Surgery Sports Medicine
PROC: 0SRC069 Replacement of Right Knee Joint with Oxidized Zirconium on Polyethylene Synthetic Substitute, Cemented, Open Approach (ICD-10-PCS; principal; 2022-05-04 08:00)
DX: M25.561 Pain in right knee (principal); M17.11 Unilateral primary osteoarthritis, right knee
CPT/HCPCS: 85025; 80048; 36415 ×3; 85610; 88305; 88311; 85730; 85018 ×2; 85014 ×2; 71046; 73560; 97110 ×2; 97116 ×5; 97139; 97161; 97530 ×3; 94010; 87811; 27447; G0379; C1776; J2704; J0171; J2550; J2001 ×2; J1650; J2250 ×2; J3010; J1100 ×2; J2270; J1170 ×2; J7120 ×2; J2405 ×2; G0378 ×2

== ENCOUNTER 2024-05-23 07:07 | Emergency (ER) | payer BC, OTHER ==
--- OUTSIDE RECORDS SUMMARY | 2024-05-23 07:11 | XMS REPORT | Continuity of Care Document ---
Author Name Unknown Address [address] [address] [address] [place] [address] [facility] thconnect Address [address] [address] [address] [place] [address] Care Team Providers Care Small Engine Technician Name Role Phone Leroy Rios Attending Clinician Unavailable Cat MCNAMARA Attending Clinician Unavailable Milagros Abreu Attending Clinician Unavailable [email or web address]_S Attending Clinician Unavaila ble [email or web address]_Kadiyala_S Admitting Clinician Unavaila ble Payers Payer Name Policy Type Policy Number Effective Date Expirati on Date Source [place] [address] [id number] 2021 00:00:00 [facility] AETNA 53 [id number] 2020 00:00:00 [facility] Problems Condition Name Condition Details Condition Category Status Onset Date Resolution Date Last Treatment Date Treating Clinician Comments Source [id number] Morbid obesity Problem [facility] Functional urinary incontinen ce Urinary incontinen ce, functional Problem [facility] Primary osteoarthr itis Localized osteoarthr itis of right knee Problem [facility] [id number] Arthritis of knee, right Problem [facility] [id number] Status post total right knee replacemen t Problem [facility] Vitamin B12 deficiency (non anemic) Vitamin B 12 deficiency Problem Common [facility] History of polyp of colon Personal history of colonic polyps Problem [facility] Abdominal bloating Abdominal bloating Problem [facility] [id number] Essential hypertensi on Problem [facility] [id number] 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 Problem [facility] Allergic conjunctiv itis of both eyes Allergic conjunctiv itis of both eyes Problem [facility] Allergic rhinitis due to pollen Allergic rhinitis due to pollen Problem [facility] Burping Burping Problem [facility] [id number] Body mass index [BMI] 35.0-35.9, adult Problem [facility] Family history of diabetes mellitus type 2 Family history of type 2 diabetes mellitus Problem [facility] [id number] Morbid (severe) obesity due to excess calories Problem [facility] Overactive bladder Overactive bladder Problem [facility] Family history of malignant neoplasm of gastrointe stinal tract Family history of colon cancer Problem [facility] Gastroesop hageal reflux disease with esophagiti s (disorder) +5th digit eff 04/16/20*[place] stroesopha geal reflux disease with esophagiti s Problem [facility] Mixed incontinen ce Mixed stress and urge urinary incontinen ce Problem [facility] Hypertensi on HTN (hypertens ion) Problem [facility] Abnormal mammogram Abnormal mammogram of right breast Problem [facility] [id number] Primary osteoarthr itis of right knee Problem [facility] Vitamin D deficiency Vitamin D deficiency Problem [facility] [id number] 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 with pain Problem [facility] Gastritis Gastritis Problem [facility] Microalbum inuria Microalbum inuria Problem [facility] Obesity Obesity Problem [facility] [id number] Need for 23-polyval ent pneumococc al polysaccha ride vaccine Problem [facility] [id number] Tinnitus of right ear Problem [facility] [id number] Localized swelling, mass and lump, neck Problem [facility] Urinary incontinen ce Urinary incontinen ce Problem [facility] [id number] Anemia, unspecifie d type Problem [facility] Esophagiti s Esophagiti s Problem [facility] [id number] Gastroesop hageal reflux disease without esophagiti s Problem [facility] [id number] Gastro-eso phageal reflux disease without esophagiti s Problem [facility] [id number] Pain of left heel Problem [facility] Hemorrhoid s Hemorrhoid s Problem [facility] [id number] Urticaria Problem Comm on [facility] [id number] Unsteady Problem [facility] Allergies, Adverse Reactions, Alerts Allergy Name Allergy Type Status Severity Reaction(s) Onset Date Inactive Date Treating Clinician Comments Source aspirin aspirin Active Gets Hive with whitew tablet [facility] strawber ry allergen ic extract strawber ry allergen ic extract Active Unknown [facility] Social History Social Habit Start Date Stop Date Quantity Comments Source History of Tobacco Use [facility] Sex Assigned At [facility] Smoking Status Start Date Stop Date Source Never Smoker [facility] Medications Ordered Medication Name Filled Medication Name Start Date Stop Date Current Medication? Ordering Clinician Indication Dosage Frequency Signature (SIG) Comments Components Source Bupivicaine Power Bupivicaine Power 12-14 00:00: 00 No 2.5mg [facility] Cetirizine HCl 10 MG Cetirizine HCl 10 MG 12-06 00:00: 00 No 1{table t} Cetirizine HCl 10 MG Calcium 600 MG Calcium 600 MG 07-20 00:00: 00 No 1{table t_with_ meals} BID Calcium 600 MG Vitamin B12 2500 Vitamin B12 2500 08-08 00:00: 00 No 1{table t} QD Vitamin B12 2500 LIDOCAINE HCL 10MG/ML LIDOCAINE HCL 10MG/ML 2018-07 00:00: 00 No 4mL [facility] Kenalog (Triamcinol one) Kenalog (Triamcinol one) 2018-07 00:00: 00 No 1mL [facility] Fluticasone Propionate 50 MCG/ACT Fluticasone Propionate 50 MCG/ACT No Fluticason e Propionate 50 MCG/ACT Pantoprazol e Sodium 20 MG Pantoprazol e Sodium 20 MG No 1{table t} QD Pantoprazo le Sodium 20 MG Azelastine HCl 0.05 % Azelastine HCl 0.05 % No Azelastine HCl 0.05 % Montelukast Sodium 10 MG Montelukast Sodium 10 MG No 1{table t} Montelukas t Sodium 10 MG amLODIPine Besy-Benaze pril HCl 10-40 MG amLODIPine Besy-Benaze pril HCl 10-40 MG No QD amLODIPine Besy-Benaz epril HCl 10-40 MG Tolterodine Tartrate ER 4 MG Tolterodine Tartrate ER 4 MG No 1{capsu le} QD Tolterodin e Tartrate ER 4 MG Levsin 0.125 MG Levsin 0.125 MG No 1{table t_as_ne eded} 6xD Levsin 0.125 MG Immunizations Ordered Immunization Name Filled Immunization Name Date Status Comments Source PNEUMAVAX 23 PNEUMAVAX 23 2020-02-17 08:47:00 Completed [facility] PNEUMAVAX 23 PNEUMAVAX 23 2020-02-17 08:47:00 Completed [facility] PNEUMAVAX 23 PNEUMAVAX 23 2020-02-17 08:47:00 Completed [facility] PNEUMAVAX 23 PNEUMAVAX 23 2020-02-17 08:47:00 Completed [facility] PNEUMAVAX 23 PNEUMAVAX 23 2020-02-17 08:47:00 Completed [facility] PNEUMAVAX 23 PNEUMAVAX 23 2020-02-17 08:47:00 Completed [facility] PNEUMAVAX 23 PNEUMAVAX 23 2020-02-17 08:47:00 Completed [facility] PNEUMAVAX 23 PNEUMAVAX 23 2020-02-17 08:47:00 Completed [facility] PNEUMAVAX 23 PNEUMAVAX 23 2020-02-17 08:47:00 Completed [facility] PNEUMAVAX 23 PNEUMAVAX 23 2020-02-17 08:47:00 Completed [facility] PNEUMAVAX 23 PNEUMAVAX 23 2020-02-17 08:47:00 Completed [facility] PNEUMAVAX 23 PNEUMAVAX 23 2020-02-17 08:47:00 Completed [facility] PNEUMAVAX 23 PNEUMAVAX 23 2020-02-17 08:47:00 Completed [facility] PNEUMAVAX 23 PNEUMAVAX 23 2020-02-17 08:47:00 Completed [facility] PNEUMAVAX 23 PNEUMAVAX 23 2020-02-17 08:47:00 Completed [facility] PNEUMAVAX 23 PNEUMAVAX 23 2020-02-17 08:47:00 Completed [facility] PNEUMAVAX 23 PNEUMAVAX 23 2020-02-17 08:47:00 Completed [facility] PNEUMAVAX 23 PNEUMAVAX 23 2020-02-17 08:47:00 Completed [facility] PNEUMAVAX 23 PNEUMAVAX 23 2020-02-17 08:47:00 Completed [facility] PNEUMAVAX 23 PNEUMAVAX 23 2020-02-17 08:47:00 Completed [facility] PNEUMAVAX 23 PNEUMAVAX 23 2020-02-17 08:47:00 Completed [facility] PNEUMAVAX 23 PNEUMAVAX 23 2020-02-17 08:47:00 Completed [facility] PNEUMAVAX 23 PNEUMAVAX 23 2020-02-17 00:00:00 Completed [facility] Boostrix (Tdap) Boostrix (Tdap) 2018-09-21 09:57:00 Completed [facility] Boostrix (Tdap) Boostrix (Tdap) 2018-09-21 09:57:00 Completed [facility] Boostrix (Tdap) Boostrix (Tdap) 2018-09-21 09:57:00 Completed [facility] Boostrix (Tdap) Boostrix (Tdap) 2018-09-21 09:57:00 Completed [facility] Boostrix (Tdap) Boostrix (Tdap) 2018-09-21 09:57:00 Completed [facility] Boostrix (Tdap) Boostrix (Tdap) 2018-09-21 09:57:00 Completed [facility] Boostrix (Tdap) Boostrix (Tdap) 2018-09-21 09:57:00 Completed [facility] Boostrix (Tdap) Boostrix (Tdap) 2018-09-21 09:57:00 Completed [facility] Boostrix (Tdap) Boostrix (Tdap) 2018-09-21 09:57:00 Completed [facility] Boostrix (Tdap) Boostrix (Tdap) 2018-09-21 09:57:00 Completed [facility] Boostrix (Tdap) Boostrix (Tdap) 2018-09-21 09:57:00 Completed [facility] Boostrix (Tdap) Boostrix (Tdap) 2018-09-21 09:57:00 Completed [facility] Boostrix (Tdap) Boostrix (Tdap) 2018-09-21 09:57:00 Completed [facility] Boostrix (Tdap) Boostrix (Tdap) 2018-09-21 09:57:00 Completed [facility] Boostrix (Tdap) Boostrix (Tdap) 2018-09-21 09:57:00 Completed [facility] Boostrix (Tdap) Boostrix (Tdap) 2018-09-21 09:57:00 Completed [facility] Boostrix (Tdap) Boostrix (Tdap) 2018-09-21 09:57:00 Completed [facility] Boostrix (Tdap) Boostrix (Tdap) 2018-09-21 09:57:00 Completed [facility] Boostrix (Tdap) Boostrix (Tdap) 2018-09-21 09:57:00 Completed [facility] Boostrix (Tdap) Boostrix (Tdap) 2018-09-21 09:57:00 Completed [facility] Boostrix (Tdap) Boostrix (Tdap) 2018-09-21 09:57:00 Completed [facility] Boostrix (Tdap) Boostrix (Tdap) 2018-09-21 09:57:00 Completed [facility] TDAP- Boostrix TDAP- Boostrix 2018-09-21 00:00:00 Completed [facility] PNEUMAVAX 23 PNEUMAVAX 23 Unknown Completed [facility] Boostrix (Tdap) Boostrix (Tdap) Unknown Completed [facility] PNEUMAVAX 23 PNEUMAVAX 23 Unknown Completed Comm on [facility] Boostrix (Tdap) Boostrix (Tdap) Unknown Completed [facility] PNEUMAVAX 23 PNEUMAVAX 23 Unknown Completed Comm on [facility] Boostrix (Tdap) Boostrix (Tdap) Unknown Completed [facility] PNEUMAVAX 23 PNEUMAVAX 23 Unknown Completed Comm on [facility] Boostrix (Tdap) Boostrix (Tdap) Unknown Completed [facility] PNEUMAVAX 23 PNEUMAVAX 23 Unknown Completed Comm on [facility] Boostrix (Tdap) Boostrix (Tdap) Unknown Completed [facility] PNEUMAVAX 23 PNEUMAVAX 23 Unknown Completed Comm on [facility] Boostrix (Tdap) Boostrix (Tdap) Unknown Completed [facility] PNEUMAVAX 23 PNEUMAVAX 23 Unknown Completed Comm on [facility] Boostrix (Tdap) Boostrix (Tdap) Unknown Completed [facility] PNEUMAVAX 23 PNEUMAVAX 23 Unknown Completed Comm on [facility] Boostrix (Tdap) Boostrix (Tdap) Unknown Completed [facility] PNEUMAVAX 23 PNEUMAVAX 23 Unknown Completed Comm on [facility] Boostrix (Tdap) Boostrix (Tdap) Unknown Completed [facility] PNEUMAVAX 23 PNEUMAVAX 23 Unknown Completed Comm on [facility] Boostrix (Tdap) Boostrix (Tdap) Unknown Completed [facility] PNEUMAVAX 23 PNEUMAVAX 23 Unknown Completed Comm on [facility] Boostrix (Tdap) Boostrix (Tdap) Unknown Completed [facility] PNEUMAVAX 23 PNEUMAVAX 23 Unknown Completed Comm on [facility] Boostrix (Tdap) Boostrix (Tdap) Unknown Completed [facility] PNEUMAVAX 23 PNEUMAVAX 23 Unknown Completed Comm on [facility] Boostrix (Tdap) Boostrix (Tdap) Unknown Completed [facility] PNEUMAVAX 23 PNEUMAVAX 23 Unknown Completed Comm on [facility] Boostrix (Tdap) Boostrix (Tdap) Unknown Completed [facility] PNEUMAVAX 23 PNEUMAVAX 23 Unknown Completed Comm on [facility] Boostrix (Tdap) Boostrix (Tdap) Unknown Completed [facility] Vital Signs Vital Name Observation Time Observation Value Comments S ource height 2024-03-06 13:40:00 65.00 [in_i] Com mon [facility] weight 2024-03-06 13:40:00 227.4 [lb_av] Co mmon [facility] temperature 2024-03-06 13:40:00 98.1 [degF] Com [facility] bmi 2024-03-06 13:40:00 37.84 kg/m2 Comm on [facility] oximetry 2024-03-06 13:40:00 98 % Commo n [facility] respiratory rate 2024-03-06 13:40:00 18 /min Common [facility] blood pressure systolic 2024-03-06 13:40:00 138 mm[Hg] Common [facility] blood pressure diastolic 2024-03-06 13:40:00 72 mm[Hg] [facility] height 2024-01-26 09:20:00 65.00 [in_i] Com [facility] weight 2024-01-26 09:20:00 234 [lb_av] Comm on [facility] temperature 2024-01-26 09:20:00 97.9 [degF] Com [facility] bmi 2024-01-26 09:20:00 38.94 kg/m2 Comm on [facility] oximetry 2024-01-26 09:20:00 97 % Commo n [facility] blood pressure systolic 2024-01-26 09:20:00 134 mm[Hg] Common [facility] blood pressure diastolic 2024-01-26 09:20:00 78 mm[Hg] Common [facility] height 2023-10-16 09:20:00 65.00 [in_i] Com [facility] weight 2023-10-16 09:20:00 219.0 [lb_av] Co mmon [facility] temperature 2023-10-16 09:20:00 97.8 [degF] Com [facility] bmi 2023-10-16 09:20:00 36.44 kg/m2 Comm on [facility] oximetry 2023-10-16 09:20:00 98 % Commo n [facility] respiratory rate 2023-10-16 09:20:00 18 /min Common [facility] blood pressure systolic 2023-10-16 09:20:00 123 mm[Hg] Common [facility] blood pressure diastolic 2023-10-16 09:20:00 68 mm[Hg] Common [facility] height 2023-07-24 10:10:00 65.00 [in_i] Com [facility] weight 2023-07-24 10:10:00 213.6 [lb_av] [facility] 2023-07-24 10:10:00 98.1 [degF] Com [facility] bmi 2023-07-24 10:10:00 35.54 kg/m2 Comm on [facility] oximetry 2023-07-24 10:10:00 97 % Commo n [facility] blood pressure systolic 2023-07-24 10:10:00 138 mm[Hg] Common [facility] blood pressure diastolic 2023-07-24 10:10:00 80 mm[Hg] [facility] height 2023-05-30 09:30:00 65.00 [in_i] Com [facility] weight 2023-05-30 09:30:00 211 [lb_av] Comm on [facility] temperature 2023-05-30 09:30:00 98.5 [degF] Com [facility] bmi 2023-05-30 09:30:00 35.11 kg/m2 Comm on [facility] blood pressure systolic 2023-05-30 09:30:00 122 mm[Hg] [facility] blood pressure diastolic 2023-05-30 09:30:00 84 mm[Hg] Common [facility] height 2023-05-22 14:30:00 65.00 [in_i] Com [facility] weight 2023-05-22 14:30:00 210.8 [lb_av] Co [facility] temperature 2023-05-22 14:30:00 98.5 [degF] Com [facility] bmi 2023-05-22 14:30:00 35.08 kg/m2 Comm on [facility] oximetry 2023-05-22 14:30:00 98 % Commo n [facility] respiratory rate 2023-05-22 14:30:00 16 /min [facility] blood pressure systolic 2023-05-22 14:30:00 132 mm[Hg] Common [facility] blood pressure diastolic 2023-05-22 14:30:00 78 mm[Hg] [facility] height 2023-01-23 09:40:00 65.00 [in_i] Com [facility] weight 2023-01-23 09:40:00 209.0 [lb_av] Co [facility] temperature 2023-01-23 09:40:00 96.7 [degF] Com [facility] bmi 2023-01-23 09:40:00 34.78 kg/m2 Comm on [facility] oximetry 2023-01-23 09:40:00 99 % Commo n [facility] respiratory rate 2023-01-23 09:40:00 18 /min Common [facility] blood pressure systolic 2023-01-23 09:40:00 127 mm[Hg] Common [facility] blood pressure diastolic 2023-01-23 09:40:00 69 mm[Hg] [facility] height 2022-12-22 15:40:00 65.00 [in_i] Com [facility] weight 2022-12-22 15:40:00 215.4 [lb_av] Co [facility] temperature 2022-12-22 15:40:00 97.9 [degF] Com mon [facility] bmi 2022-12-22 15:40:00 35.84 kg/m2 Comm on [facility] oximetry 2022-12-22 15:40:00 99 % Commo n [facility] respiratory rate 2022-12-22 15:40:00 18 /min Common [facility] blood pressure systolic 2022-12-22 15:40:00 117 mm[Hg] Common [facility] blood pressure diastolic 2022-12-22 15:40:00 69 mm[Hg] Common [facility] height 2022-09-26 09:00:00 65.00 [in_i] Com [facility] weight 2022-09-26 09:00:00 202 [lb_av] Comm on [facility] temperature 2022-09-26 09:00:00 98.0 [degF] Com [facility] bmi 2022-09-26 09:00:00 33.61 kg/m2 Comm on [facility] blood pressure systolic 2022-09-26 09:00:00 134 mm[Hg] Common [facility] blood pressure diastolic 2022-09-26 09:00:00 84 mm[Hg] Common [facility] height 2022-08-29 13:00:00 65.00 [in_i] Com [facility] weight 2022-08-29 13:00:00 202 [lb_av] Comm on [facility] bmi 2022-08-29 13:00:00 33.61 kg/m2 Comm on [facility] blood pressure systolic 2022-08-29 13:00:00 137 mm[Hg] Common [facility] blood pressure diastolic 2022-08-29 13:00:00 72 mm[Hg] Common [facility] height 2022-07-19 09:00:00 65.00 [in_i] Com [facility] weight 2022-07-19 09:00:00 206 [lb_av] Comm on [facility] temperature 2022-07-19 09:00:00 98.4 [degF] Com [facility] bmi 2022-07-19 09:00:00 34.28 kg/m2 Comm on [facility] blood pressure systolic 2022-07-19 09:00:00 134 mm[Hg] Common [facility] blood pressure diastolic 2022-07-19 09:00:00 84 mm[Hg] Common [facility] height 2022-06-07 09:00:00 65.00 [in_i] Com [facility] weight 2022-06-07 09:00:00 206 [lb_av] Comm on [facility] temperature 2022-06-07 09:00:00 97.2 [degF] Com [facility] bmi 2022-06-07 09:00:00 34.28 kg/m2 Comm on [facility] blood pressure systolic 2022-06-07 09:00:00 138 mm[Hg] Common [facility] blood pressure diastolic 2022-06-07 09:00:00 88 mm[Hg] Common [facility] height 2022-05-19 09:00:00 65.00 [in_i] Com [facility] weight 2022-05-19 09:00:00 206 [lb_av] Comm on [facility] temperature 2022-05-19 09:00:00 98.3 [degF] Com [facility] bmi 2022-05-19 09:00:00 34.28 kg/m2 Comm on [facility] blood pressure systolic 2022-05-19 09:00:00 134 mm[Hg] Common [facility] blood pressure diastolic 2022-05-19 09:00:00 84 mm[Hg] Common [facility] height 2022-05-12 11:00:00 65.00 [in_i] Com [facility] weight 2022-05-12 11:00:00 206 [lb_av] Comm on [facility] temperature 2022-05-12 11:00:00 96.9 [degF] Com [facility] bmi 2022-05-12 11:00:00 34.28 kg/m2 Comm on [facility] blood pressure systolic 2022-05-12 11:00:00 140 mm[Hg] Common [facility] blood pressure diastolic 2022-05-12 11:00:00 92 mm[Hg] Common [facility] height 2022-04-22 10:00:00 65.00 [in_i] Com [facility] weight 2022-04-22 10:00:00 207 [lb_av] Comm on [facility] temperature 2022-04-22 10:00:00 97.3 [degF] Com [facility] bmi 2022-04-22 10:00:00 34.44 kg/m2 Comm on [facility] blood pressure systolic 2022-04-22 10:00:00 136 mm[Hg] Common [facility] blood pressure diastolic 2022-04-22 10:00:00 84 mm[Hg] Common [facility] height 2022-02-25 10:20:00 65.00 [in_i] Com [facility] weight 2022-02-25 10:20:00 212.4 [lb_av] Co mmon [facility] temperature 2022-02-25 10:20:00 97.6 [degF] Com [facility] bmi 2022-02-25 10:20:00 35.34 kg/m2 Comm on [facility] oximetry 2022-02-25 10:20:00 99 % Commo n [facility] respiratory rate 2022-02-25 10:20:00 16 /min Common [facility] blood pressure systolic 2022-02-25 10:20:00 138 mm[Hg] Common [facility] blood pressure diastolic 2022-02-25 10:20:00 68 mm[Hg] Common [facility] height 2022-02-14 09:30:00 65.00 [in_i] Com [facility] weight 2022-02-14 09:30:00 209 [lb_av] Comm on [facility] temperature 2022-02-14 09:30:00 97.4 [degF] Com [facility] bmi 2022-02-14 09:30:00 34.78 kg/m2 Comm on [facility] blood pressure systolic 2022-02-14 09:30:00 126 mm[Hg] Common [facility] blood pressure diastolic 2022-02-14 09:30:00 84 mm[Hg] Common [facility] height 2021-12-14 15:00:00 65.00 [in_i] Com [facility] weight 2021-12-14 15:00:00 200 [lb_av] Comm on [facility] temperature 2021-12-14 15:00:00 98.3 [degF] Com [facility] bmi 2021-12-14 15:00:00 33.28 kg/m2 Comm on [facility] blood pressure systolic 2021-12-14 15:00:00 132 mm[Hg] [facility] [facility] blood pressure diastolic 2021-12-14 15:00:00 84 mm[Hg] Common [facility] height 2021-12-06 14:20:00 65.00 [in_i] Com [facility] weight 2021-12-06 14:20:00 210.0 [lb_av] [facility] 2021-12-06 14:20:00 97.6 [degF] Com [facility] bmi 2021-12-06 14:20:00 34.94 kg/m2 Comm on [facility] oximetry 2021-12-06 14:20:00 100 % Commo n [facility] respiratory rate 2021-12-06 14:20:00 16 /min Common [facility] blood pressure systolic 2021-12-06 14:20:00 136 mm[Hg] [facility] blood pressure diastolic 2021-12-06 14:20:00 76 mm[Hg] Common [facility] height 2021-08-27 08:40:00 65.00 [in_i] Com [facility] weight 2021-08-27 08:40:00 203.0 [lb_av] Co [facility] temperature 2021-08-27 08:40:00 97.6 [degF] Com [facility] bmi 2021-08-27 08:40:00 33.78 kg/m2 Comm on [facility] oximetry 2021-08-27 08:40:00 99 % Commo n [facility] respiratory rate 2021-08-27 08:40:00 16 /min [facility] blood pressure systolic 2021-08-27 08:40:00 131 mm[Hg] [facility] blood pressure diastolic 2021-08-27 08:40:00 63 mm[Hg] Common [facility] height 2021-05-24 16:20:00 65.00 [in_i] Com [facility] weight 2021-05-24 16:20:00 203.6 [lb_av] Co [facility] temperature 2021-05-24 16:20:00 97.4 [degF] Com [facility] bmi 2021-05-24 16:20:00 33.88 kg/m2 Comm on [facility] oximetry 2021-05-24 16:20:00 99 % Commo n [facility] respiratory rate 2021-05-24 16:20:00 16 /min [facility] blood pressure systolic 2021-05-24 16:20:00 137 mm[Hg] [facility] blood pressure diastolic 2021-05-24 16:20:00 76 mm[Hg] [facility] Encounters Start Date/Time End Date/Time Encounter Type Admission Type Attending Clinicians Care Facility Care Department Encounter ID Source 2024-03-06 09:41:00 Outpatient Rios, Leroy [facility]MLC [facility] [id number] [facility] 2023-10-13 13:47:00 Outpatient Rios, Leroy [facility] [id number] [facility] 2023-07-21 11:45:00 Outpatient Rios, Leroy [facility] ST[facility] [id number] [facility] 2023-05-30 13:37:00 Outpatient Rios, Leroy [facility] ST[facility] [id number] [facility] 2022-12-22 15:35:00 Outpatient Rios, Leroy [facility] ST[facility] [id number] [facility] 2022-12-20 14:07:00 Outpatient CLAIRE, Cat STLMLC ST[facility] [id number] [facility] 2022-09-26 09:47:00 Outpatient Claire, Cat [facility]C ST[facility] [id number] [facility] 2022-08-24 14:30:00 Outpatient Claire, Cat [facility] ST[facility] [id number] [facility] 2022-07-19 09:07:00 Outpatient Claire, Cat [facility] [id number] [facility] 2022-05-30 08:24:00 Outpatient Abreu, Na STLMLC ST[facility] [id number] [facility] 2022-04-21 11:43:00 Outpatient Abreu, Na [facility]MLC ST[facility] [id number] [facility] 2022-02-23 10:24:00 Outpatient Abreu, Na [facility]C [facility] [id number] [facility] 2022-02-11 10:44:00 Outpatient Abreu, Na STLMLC ST[facility] [id number] [facility] 2021-12-20 07:28:00 Outpatient Abreu, Na STLMLC ST[facility] [id number] [facility] 2021-12-14 08:12:00 Outpatient Abreu, Na ST[facility]C ST[facility] [id number] [facility] 2021-12-02 09:22:03 Outpatient Abreu, Na [facility] [id number] [facility] 2021-08-27 08:40:00 Outpatient Abreu, Na ST[facility]C ST[facility] [id number] [facility] 2021-08-11 14:10:31 Outpatient Abreu, Na STLMLC ST[facility] [id number] [facility] 2021-08-11 13:22:16 Outpatient Abreu, Na STL[facility]C ST[facility]C [id number] [facility] 2021-08-11 12:47:08 Outpatient Abreu, Na STLMLC STL[facility]C [id number] [facility] 2021-08-11 12:44:17 Outpatient Abreu, Na [facility]C ST[facility] [id number] [facility] 2021-08-11 12:21:20 Outpatient Abreu, Na STLMLC ST[facility]C [id number] [facility] 2021-08-11 12:20:40 Outpatient Abreu, Na STLMLC ST[facility]C [id number] [facility] 2021-08-11 12:04:04 Outpatient Abreu, Na STLMLC ST[facility]C [id number] [facility] 2021-08-11 11:44:13 Outpatient Abreu, Na STLMLC ST[facility]C [id number] [facility] 2021-08-11 11:33:47 Outpatient Abreu, Na STLMLC ST[facility]C [id number] [facility] 2021-08-11 11:29:32 Outpatient Abreu, Na STLMLC ST[facility]C [id number] [facility] 2021-08-11 11:29:14 Outpatient Abreu, Na STLMLC ST[facility]C [id number] [facility] 2021-08-11 11:07:28 Outpatient Abreu, Na ST[facility]MLC ST[facility]C [id number] [facility] 2021-08-11 10:57:49 Outpatient Abreu, Na STLMLC ST[facility]C [id number] [facility] 2024-04-23 00:00:00 2024-04-23 00:00:00 (TEL) STLMLC ST[facility]C [id number] [facility] 2024-03-20 00:00:00 2024-03-20 00:00:00 (TEL) STL[facility]C ST[facility]C [id number] [facility] 2024-03-08 00:00:00 2024-03-08 00:00:00 (TEL) STLMLC ST[facility]C [id number] [facility] 2024-03-07 00:00:00 2024-03-07 00:00:00 (TEL) STLMLC ST[facility]C [id number] [facility] 2024-03-06 00:00:00 2024-03-06 00:00:00 (TEL) STLMLC ST[facility]C [id number] [facility] 2024-03-06 00:00:00 2024-03-06 00:00:00 OFFICE VISIT ESTAB PT LEVEL 3 [facility] ST[facility]C [id number] [facility] 2024-01-26 00:00:00 2024-01-26 00:00:00 PREV VISIT EST AGE 65 & OVER STLMLC STLMLC [id number] [facility] 2023-11-13 00:00:00 2023-11-13 00:00:00 (TEL) STLMLC STLMLC [id number] [facility] 2023-10-16 00:00:00 2023-10-16 00:00:00 OFFICE VISIT ESTAB PT LEVEL 4 [facility]C ST[facility]C [id number] [facility] 2023-08-25 00:00:00 2023-08-25 00:00:00 (TEL) STLMLC STLMLC [id number] [facility] 2023-07-24 00:00:00 2023-07-24 00:00:00 OFFICE VISIT ESTAB PT LEVEL 4 [facility] ST[facility]C [id number] [facility] 2023-05-30 00:00:00 2023-05-30 00:00:00 (F/U) Follow Up Visit STLMLC STLMLC [id number] [facility] 2023-05-23 00:00:00 2023-05-23 00:00:00 (TEL) STLMLC STLMLC [id number] [facility] 2023-05-22 00:00:00 2023-05-22 00:00:00 OFFICE VISIT ESTAB PT LEVEL 4 [facility] ST[facility]C [id number] [facility] 2023-05-16 00:00:00 2023-05-16 00:00:00 Outpatient GC_GCBZW_Ka nataly_S [facility] [id number] [facility] 2023-04-26 00:00:00 2023-04-26 00:00:00 (TEL) STLMLC STLMLC [id number] [facility] 2023-04-25 00:00:00 2023-04-25 00:00:00 (TEL) STLMLC STLMLC [id number] [facility] 2023-04-21 00:00:00 2023-04-21 00:00:00 (TEL) STLMLC STL[facility]C [id number] [facility] 2023-01-23 00:00:00 2023-01-23 00:00:00 (WELLNESS) Wellness Visit STLMLC STLMLC [id number] [facility] 2022-12-22 00:00:00 2022-12-22 00:00:00 OFFICE VISIT ESTAB PT LEVEL 4 ST[facility]C ST[facility]C [id number] [facility] 2022-09-26 00:00:00 2022-09-26 00:00:00 OFFICE VISIT ESTAB PT LEVEL 3 [facility]C ST[facility]C [id number] [facility] 2022-08-29 00:00:00 2022-08-29 00:00:00 OFFICE VISIT ESTAB PT LEVEL 3 [facility] ST[facility]C [id number] [facility] 2022-08-02 00:00:00 2022-08-02 00:00:00 (TEL) STLMLC STLMLC [id number] [facility] 2022-07-26 00:00:00 2022-07-26 00:00:00 (TEL) STLMLC STLMLC [id number] [facility] 2022-07-19 00:00:00 2022-07-19 00:00:00 NON-BILLAB LE VISIT STLMLC STLMLC [id number] [facility] 2022-06-15 00:00:00 2022-06-15 00:00:00 (TEL) STLMLC STLMLC [id number] [facility] 2022-06-07 00:00:00 2022-06-07 00:00:00 NON-BILLAB LE VISIT STLMLC STLMLC [id number] [facility] 2022-06-02 00:00:00 2022-06-02 00:00:00 (TEL) STLMLC STLMLC [id number] [facility] 2022-05-19 00:00:00 2022-05-19 00:00:00 NON-BILLAB LE VISIT STLMLC STLMLC [id number] [facility] 2022-05-16 00:00:00 2022-05-16 00:00:00 (TEL) STLMLC STLMLC [id number] [facility] 2022-05-12 00:00:00 2022-05-12 00:00:00 NON-BILLAB LE VISIT STLMLC STLMLC [id number] [facility] 2022-05-09 00:00:00 2022-05-09 00:00:00 (TEL) STLMLC STLMLC [id number] [facility] 2022-05-09 00:00:00 2022-05-09 00:00:00 (TEL) STLMLC STLMLC [id number] [facility] 2022-05-06 00:00:00 2022-05-06 00:00:00 (TEL) STLMLC STLMLC [id number] [facility] 2022-04-26 00:00:00 2022-04-26 00:00:00 (TEL) STLMLC STLMLC [id number] [facility] 2022-04-26 00:00:00 2022-04-26 00:00:00 (TEL) STLMLC STLMLC [id number] [facility] 2022-04-22 00:00:00 2022-04-22 00:00:00 OFFICE VISIT ESTAB PT LEVEL 4 STL[facility]C ST[facility]C [id number] [facility] 2022-04-14 00:00:00 2022-04-14 00:00:00 (TEL) STLMLC STLMLC [id number] [facility] 2022-03-16 00:00:00 2022-03-16 00:00:00 (TEL) STLMLC STLMLC [id number] [facility] 2022-03-09 00:00:00 2022-03-09 00:00:00 (TEL) STLMLC STLMLC [id number] [facility] 2022-02-26 00:00:00 2022-02-26 00:00:00 (TEL) STLMLC STLMLC [id number] [facility] 2022-02-25 00:00:00 2022-02-25 00:00:00 PREV VISIT EST AGE 65 & OVER STLMLC STLMLC [id number] [facility] 2022-02-21 00:00:00 2022-02-21 00:00:00 (TEL) STLMLC STLMLC [id number] [facility] 2022-02-21 00:00:00 2022-02-21 00:00:00 (TEL) STLMLC STLMLC [id number] [facility] 2022-02-14 00:00:00 2022-02-14 00:00:00 OFFICE VISIT ESTAB PT LEVEL 4 STLMLC STLMLC [id number] [facility] 2021-12-14 00:00:00 2021-12-14 00:00:00 OFFICE VISIT ESTAB PT LEVEL 4 STL[facility]C STL[facility]C [id number] [facility] 2021-12-06 00:00:00 2021-12-06 00:00:00 OFFICE VISIT ESTAB PT LEVEL 4 [facility]C ST[facility]C [id number] [facility] 2021-08-27 00:00:00 2021-08-27 00:00:00 OFFICE VISIT ESTAB PT LEVEL 4 [facility]C STL[facility]C [id number] [facility] 2021-07-30 00:00:00 2021-07-30 00:00:00 OL DIG E/M SVC 11-20 MIN STLMLC STLMLC [id number] [facility] 2021-07-29 00:00:00 2021-07-29 00:00:00 (TEL) STLMLC STLMLC [id number] [facility] 2021-07-13 00:00:00 2021-07-13 00:00:00 (TEL) STLMLC STLMLC [id number] [facility] 2021-05-24 00:00:00 2021-05-24 00:00:00 OFFICE VISIT ESTAB PT LEVEL 4 STL[facility]C ST[facility]C [id number] [facility] 2021-01-15 00:00:00 2021-01-15 00:00:00 Outpatient [facility]MLC ST[facility]C [id number] [facility] 2020-10-24 00:00:00 2020-10-24 00:00:00 Outpatient [facility]C ST[facility]C [id number] [facility] 2020-10-23 00:00:00 2020-10-23 00:00:00 Outpatient [facility]LMLC ST[facility]C [id number] [facility] 2020-10-16 00:00:00 2020-10-16 00:00:00 Outpatient [facility]LMLC STLMLC [id number] [facility] 2020-08-27 00:00:00 2020-08-27 00:00:00 Outpatient STLMLC STLMLC [id number] [facility] 2020-08-15 00:00:00 2020-08-15 00:00:00 Outpatient [facility]LMLC ST[facility]C [id number] [facility] 2020-08-11 00:00:00 2020-08-11 00:00:00 Outpatient ST[facility]MLC STL[facility]C [id number] [facility] 2020-07-31 00:00:00 2020-07-31 00:00:00 Outpatient STLMLC STL[facility]C [id number] [facility] 2020-05-29 00:00:00 2020-05-29 00:00:00 Outpatient [facility]MLC STLMLC [id number] [facility] 2020-03-27 08:00:00 2020-03-27 08:00:[address] [facility] [id number] [facility] 2020-02-17 08:00:00 2020-02-17 08:00:[address] [facility] [facility] [id number] [facility] 2020-01-20 08:20:00 2020-01-20 08:20:[address] [facility] [id number] [facility] 2019-12-20 13:20:00 2019-12-20 13:20:[address] [facility] [id number] [facility] 2019-12-16 22:27:00 2019-12-16 22:27:[address] [facility] [facility] [id number] [facility] 2019-11-25 10:15:00 2019-11-25 10:15:00 [facility] [id number] [facility] 2019-11-04 10:06:00 2019-11-04 10:06:00 [facility] [id number] [facility] 2019-08-08 15:40:00 2019-08-08 15:40:[address] [facility] [id number] [facility] 2019-07-19 10:00:00 2019-07-19 10:00:00 [facility] [id number] [facility] 2019-07-08 13:34:00 2019-07-08 13:34:[address] [facility] [facility] [id number] [facility] 2019-06-21 11:00:00 2019-06-21 11:00:[address] [facility] [facility] [id number] [facility] 2019-06-10 09:30:00 2019-06-10 09:30:00 [facility] [place] [place] [id number] [facility] 2019-06-07 08:40:00 2019-06-07 08:40:[address] [facility] [id number] [facility] 2019-06-07 08:23:00 2019-06-07 08:23:[address] [facility] [id number] [facility] 2019-05-19 00:54:00 2019-05-19 00:54:[address] [facility] [facility] [id number] [facility] 2019-05-13 09:30:00 2019-05-13 09:30:00 [facility] [id number] [facility] 2019-05-07 15:33:00 2019-05-07 15:33:[address] [facility] [id number] [facility] 2019-04-18 08:19:00 2019-04-18 08:19:[address] [facility] [id number] [facility] 2019-03-29 08:20:00 2019-03-29 08:20:[address] [facility] [id number] [facility] 2019-03-24 12:24:00 2019-03-24 12:24:[address] [facility] [id number] [facility] 2019-03-19 16:28:00 2019-03-19 16:28:[address] [facility] [facility] [id number] [facility] 2018-12-25 13:14:00 2018-12-25 13:14:[address] [facility] [facility] [id number] [facility] 2018-12-21 08:20:00 2018-12-21 08:20:[address] [facility] [facility] [id number] [facility] 2018-11-02 15:49:00 2018-11-02 15:49:00 [facility] [id number] [facility] 2018-10-22 15:20:00 2018-10-22 15:20:[address] [facility] [facility] [id number] [facility] 2018-09-21 09:00:00 2018-09-21 09:00:[address] [facility] [id number] [facility] 2018-06-21 09:00:00 2018-06-21 09:00:00 [facility] [id number] [facility] 2018-04-11 16:35:00 2018-04-11 16:35:[address] [facility] [facility] [id number] [facility] 2018-04-11 08:24:00 2018-04-11 08:24:00 [facility] [id number] [facility] 2018-03-23 09:15:00 2018-03-23 09:15:00 [facility] [id number] [facility] 2018-01-08 15:59:00 2018-01-08 15:59:00 [facility] [id number] [facility] 2018-01-01 08:45:00 2018-01-01 08:45:00 Outpatient [facility] [id number] [facility] 2017-10-06 09:54:00 2017-10-06 09:54:00 Outpatient [facility] [id number] [facility] 2017-10-02 08:15:00 2017-10-02 08:15:00 Outpatient [facility] [id number] [facility] Results Test Description Test Time Test Comments Results Result Co mments Source DEXA, BONE DENSITY AXIAL SKELE DEXA, BONE DENSITY AXIAL SKELE
[2024-05-23] MEDS ORDERED: ACETAMINOPHEN 500 MG TAB ONE (07:28)
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
== END 2024-05-23 10:16 | disposition home or self-care (01) ==
LOC: ER 07:07
DX: R07.89 Other chest pain (principal); M79.645 Pain in left finger(s); I10 Essential (primary) hypertension; V29.498A Other motorcycle driver injured in collision with other motor vehicles in traffic accident, initial encounter
CPT/HCPCS: 71046; 99284

== ENCOUNTER 2024-07-03 07:10 | Day surgery (SDC) | payer BC, OTHER ==
[2024-07-02 14:43] LABS: Absolute Eosinophils 0.1 K/uL (0-0.5); Absolute Lymphocytes (CBC) 1.1 K/uL (0.7-4.9); Absolute Monocytes 0.5 K/uL (0.1-1.3); Absolute Neutrophil 4.9 K/uL (1.8-8.0); Basophils % 0.6 % (0-1.3); Eosinophils % 1.5 % (0-4.4); Hematocrit 35.4 % (36.0-45.0); Hemoglobin 11.5 g/dL (12.0-15.0); Lymphocytes % 16.2 % (15.3-44.8); MCH 31.1 pg (27.0-35.0); MCHC 32.6 g/dL (32.0-36.0); MCV 95.3 fL (80-100); MPV 9.3 fL (7.6-11.3); Monocytes % 7.1 % (3.3-12.3); Neutrophils % 74.6 % (41.7-73.7); Platelets 218 thou/uL (152-406); RBC Red Blood Cell Count 3.71 M/uL (3.86-4.86); Red Cell Distribution Width 14.9 % (12.1-15.2)
[2024-07-02 15:00] LABS: ALT/SGPT 24 U/L (13-56); AST/SGOT 18 U/L (15-37); Albumin 3.5 g/dL (3.4-5.0); Albumin/Globulin Ratio 0.8 (1.1-1.8); Alkaline Phosphatase 64 U/L (45-117); Anion Gap 8.6 mEq/L (5.0-15.0); BUN Blood Urea Nitrogen 13 mg/dL (7-18); Bicarbonate 24 mEq/L (21-32); Bilirubin Total 0.3 mg/dL (0.2-1.0); Globulin 4.3 g/dL (2.3-3.5); Glomerular Filtration Rate 69 ml/min (=/>90); Glucose Level 102 mg/dL (74-106); Lipase 21 U/L (13-75); Potassium 3.6 mEq/L (3.5-5.1); Protein, Total 7.8 g/dL (6.4-8.2); Sodium Level 139 mEq/L (136-145)
[2024-07-02 15:08] LABS: Bilirubin Direct < 0.2 mg/dL (0-0.2); Bilirubin Indirect, Calculated 0.1 mg/dL (0.2-0.8)
[2024-07-03] MEDS: Ringers Lactate 1,000 ML IV ONE ×2 (08:30→10:40)
[2024-07-03] MEDS ORDERED: LIDOCAINE 2% MPF 5 ML VIAL ONE (08:34)
[2024-07-03] MEDS ORDERED: ROCURONIUM 50 MG/5 ML VIAL IV ONE (08:34)
[2024-07-03] MEDS ORDERED: ONDANSETRON 4 MG/2 ML VIAL ONE (08:34)
[2024-07-03] MEDS ORDERED: propofoL 200 MG/20 ML VIAL IV ONE (08:35)
[2024-07-03] MEDS ORDERED: FENTANYL CITR 100 MCG/2 ML ONE (08:35)
[2024-07-03] MEDS ORDERED: SUGAMMADEX SODIUM 200 MG/2 ML VIAL IV ONE (08:44)
[2024-07-03] MEDS ORDERED: dexAMETHasone 10 MG/ML VIAL ONE (09:02)
[2024-07-03] MEDS: CEFOXITIN SODIUM 1 GM/VIAL ONE (09:03)
[2024-07-03] MEDS ORDERED: Mastisol Adhesive Liq ONE (09:58)
--- NOTE | 2024-07-03 10:15 | P.BOP ---
Preoperative diagnosis: acute cholecystitis, RUq intractable abd pain, biliary dyskinesia Postoperative diagnosis: same Primary procedure: Laparoscopic cholecystectomy Estimated blood loss: <30cc Specimen: gb Findings: distended inflammed wall gallbladder Anesthesia: General Complications: None Drain(s): DANICA drain Transferred to: Recovery Room Condition: Good
[2024-07-03] MEDS: ONDANSETRON 4 MG/2 ML VIAL ONE (10:20)
[2024-07-03] MEDS: HYDROMORPHONE HCL 1 MG/ML INJ ONE (10:25)
[2024-07-03] MEDS: PROMETHAZINE INJ 25 MG/ML AMP ONE (10:35)
[2024-07-03] MEDS: METOCLOPRAMIDE 10 MG/2mL INJ ONE (11:00)
[2024-07-03] MEDS: CODEINE 30MG/APAP 300MG TAB ONE (12:12)
[2024-07-03 13:22] VITALS: BP 141/71; TEMP 97.5; O2SAT 97
--- NOTE | 2024-07-04 11:31 | EKG ---
Test Date: 2024-07-02 Test Time: 15:23:45 Wound Treatment Rn: FAINA MEASUREMENT RESULTS: Intervals: Rate: 81 LA: 140 QRSD: 90 QT: 398 QTc: 462 [place]: P: 64 LA: 140 QRS: 44 T: 70 INTERPRETIVE STATEMENTS: Normal sinus rhythm Normal ECG Compared to ECG 05/09/2020 02:00:54 No significant changes Electronically Signed On 07-04-24 11:28:24 SOLE STITCHER HAND by Jake Garcia
--- NOTE | 2024-07-09 00:04 | OP ---
Surgeon: Fredy White MD Preoperative Diagnoses: Acute cholecystitis, right upper quadrant intractable abdominal pain, biliar y dyskinesia. Postoperative Diagnoses: Acute cholecystitis, right upper quadrant intractable abdominal pain, bilia ry dyskinesia. Procedure: Laparoscopic cholecystectomy. Estimated Blood Loss: Less than 10 cc. Specimen: Gallbladder. Finding: Distended, inflamed gallbladder wall. Anesthesia: General plus local. Drain: DANICA drain #10. Indications: This is the case of a female who came to us with intractable right upper quadrant pain associated with nausea, vomiting, bloating, diagnosed with biliary dyskinesia and biliary colic and c holecystitis. The benefits, alternatives, and risks of laparoscopic, possible open cholecystectomy f ully explained, which include, but not limited to infection, bleeding, damage to adjacent structures, anesthesia complication, choledocholithiasis, bile leak, pancreatitis, [place], and even . She also understands this may not relieve symptoms. She might need more than one surgical intervention. She understood and signed consent. Description Of Procedure: Patient was brought to the operating room, placed in supine position. Ane sthesia was done without complication. Abdominal area was prepped and draped in usual sterile fashio n. Marcaine 0.5% was injected for local anesthetic followed by sharp incision of the skin in the inf raumbilical region. Incision was carried down to fascia, which was opened under direct vision. Carol toneum was encountered, opened under direct vision. Vicryl #1 placed inside the fascia. Zehra troc ar was carefully introduced. No bleeding was obtained. I placed 3 more trocars, 5 mm each one of th em, 1 in epigastric area, 2 in the right upper quadrant under direct visualization. We found a diste nded, inflamed gallbladder with multiple omental adhesions that were carefully removed. After that, we were able to put a grasper in the fundus of the gallbladder, another grasper in the infundibulum, retracting the gallbladder in the inferolateral fashion exposing the triangle of Calot and obtaining critical view. Still lot of inflammation of the gallbladder, but we were able to identify the cystic duct and cystic artery circumferentially and a connection between those and the gallbladder were lainey greg identified. I then proceeded to ligate those by using at least 3 clips proximal, 1 clip distal, ligation in middle. Same was done with the cystic artery. A small little branch of the cystic grisel ry was also ligated using same technique. Hepatic arteries and common bile duct were protected at al l times. The gallbladder was removed from liver using Bovie cauterizer and removed from abdominal ca vity using EndoCatch through the umbilical incision. Due to the inflammation in that area and gallbl adder wall thickening , I decided to leave a DANICA drain in that region. The DANICA drain exited through one of the trocar sites, secured in place with 3-0 nylon. The area was inspected once again. No bile leak. No bleeding. At that moment, I proceeded to remove the trocars under direct vision. Deflated pneumoperitoneum. Closed the fascia with #1 Vicryl. Irrigated subcutaneous tissue, close d that with 3-0 chromic, and then the skin with gabrielle. Sponge count and instrument counts were cor rect. The patient tolerated the procedure well. Patient was sent to Recovery in stable condition. Disposition: Home. Condition: Stable. Activity: As tolerated. No heavy lifting. Follow up in my office in 1 week. Call for appointment at [phone]. Keep area dry for 48 hours, the n may shower. DANICA drain to bulb suction. She will be explained how to empty that. DEBORA/LISA Voice ID: [id number] Report ID: [id number]
== END 2024-07-03 12:50 | disposition home or self-care (01) ==
LOC: OR 07:10
PROVIDERS: ATTEND Surgery
PROC: 0FT44ZZ Resection of Gallbladder, Percutaneous Endoscopic Approach (ICD-10-PCS; principal; 2024-07-03 08:53)
DX: K81.1 Chronic cholecystitis (principal); K82.8 Other specified diseases of gallbladder; R10.11 Right upper quadrant pain
CPT/HCPCS: 47562; 93005; 85025; 80048; 36415; 80076; 88304; 83690; J2550; J2704; J2765; J2003; J3010; J1100; J1171; J0694; J2405 ×2; J7120 ×2